=== PATIENT | female | born 1985 | race Caucasian/White ===

== ENCOUNTER 2023-03-30 14:58 | Inpatient (IN) ==
--- NOTE | 2023-03-30 15:37 | XRay Report ---
XR chest 1V not portable HISTORY: Respiratory illness, no prior imaging COMPARISON: Chest 12/10/2022. FINDINGS: No pneumothorax. No pleural effusions. The lungs are clear. The heart is normal in size. No evidence for pulmonary edema. Postoperative changes again noted within the left scapula. There is a left subclavian Port-A-Cath which terminates in the proximal SVC. IMPRESSION: No acute process. ACT 112: Negative or not required by law. Electronically signed by: Ernesto Giles M.D. 03/30/2023 3:36 PM
[2023-03-30 16:09] LABS: Basophils # (auto) 0.06 K/uL (0.00-0.20); Basophils % (auto) 0.8 %; Eosinophils # (auto) 0.32 K/uL (0.00-0.50); Eosinophils % (auto) 4.1 %; Hematocrit (blood only) 39.1 % (37.0-47.0); Immature Granulocytes # (auto) 0.02 K/uL (0.01-0.20); Immature Granulocytes % (auto) 0.3 %; Lymphocytes # (auto) 2.22 K/uL (1.20-3.40); Lymphocytes % (auto) 28.6 %; Mean Corpuscular Hemoglobin 31.3 pg (25.0-34.0); Mean Corpuscular Hgb Conc 33.2 g/dL (32.0-36.0); Mean Corpuscular Volume 94.2 fL (80.0-100.0); Mean Platelet Volume 9.1 fL (9.4-12.4); Monocytes % (auto) 6.4 %; Neutrophils # (auto) 4.65 K/uL (1.40-6.50); Neutrophils % (auto) 59.8 %; Platelet Count 327 K/uL (130-400); RDW Standard Deviation 44.9 fL (36.4-46.3); Red Blood Count 4.15 M/uL (4.20-5.40); White Blood Count 7.77 K/ul (4.8-10.8)
[2023-03-30 16:28] LABS: Alanine Aminotransferase 57 U/L (7-52); Albumin Globulin Ratio 1.4 (0.9-2); Albumin Level 3.8 gm/dl (3.4-5.0); Alkaline Phosphatase 64 U/L (34-104); Anion Gap 7 (3-11); Aspartate Aminotransferase 76 U/L (13-39); BUN Creatinine Ratio 9.9 (10-20); Bilirubin,Total 0.3 mg/dl (0.2-1.0); Blood Urea Nitrogen 12 mg/dl (6-23); Carbon Dioxide 22 mmol/L (21-32); Chloride 107 mmol/L (98-107); Est GFR (African American) 66.7 ml/min; Est GFR (Non-African American) 57.5 ml/min; Globulin 2.8 gm/dl (2.5-4.0); Glucose 92 mg/dl (70-99(Fasting)); Potassium 3.7 mmol/L (3.5-5.1); Sodium 136 mmol/L (136-145); Total Protein 6.6 gm/dl (6.0-8.3)
[2023-03-30 17:01] LABS: Appearance Urine Clear (Clear); Bacteria Urine Automated Negative (Negative); Bilirubin Urine Negative (Negative); Blood Urine Negative (Negative); Color Urine Yellow; Epithelial Cell Urine Auto 20-30 /lpf (0-5); Glucose Urine UA Negative (Negative); Ketones Urine Negative (Negative); Leukocyte Esterase Urine 2+ (Negative); Nitrite Urine Negative (Negative); Protein Urine Negative (Negative); RBC Urine Automated 0-4 /hpf (0-4); Specific Gravity Urine 1.005 (1.000-1.030); Urobilinogen Urine Negative (Negative)
[2023-03-30] MEDS ORDERED: MoRPHine SULFATE 10 MG/ML CARP/VIAL IV STA (18:04)
[2023-03-30] MEDS ORDERED: ONDANSETRON INJ 2 MG/ML 2 ML VIAL IV STA (18:04)
[2023-03-30] MEDS ORDERED: SODIUM CHLORIDE 0.9% 1,000 ML IV ONE (18:04)
--- NOTE | 2023-03-30 18:16 | Emergency Department Note ---
Impression & Plan Tachycardia, Body aches, Flu-like symptoms, COVID-19, POTS (postural orthostatic tachycardia syndrome), Hypomagnesemia ED Provider Note NAME: TANMAY IYER AGE: 38 SEX: F : 1985 ARRIVES VIA: Walk-In INFORMANT: [Patient] ED PROVIDER(S): [Dinesh Pearce MD] CHIEF COMPLAINT: Shortness of breath, COVID-positive HISTORY OF PRESENT ILLNESS: The patient is a 38-year-old female with a history of chronic pain and POTS. She has a port in place for IV hydration that she administers at home. She has history of a low magnesium. She has not felt great for a couple of days. She s tates that she had a low-grade fever, her heart rate has been quick, she has been weak and she has had some body aching. She has a dry cough and a headache. The patient has felt so weak that she has crumpled to the ground today 4 times, no injury. The patient denies any vomiting but admits to nausea. She has diarrhea but this is a chronic issue. The patient took 3 COVID test at home, they were all positive. She was prescribed Lagevrio by her doctor's office today for the diagnosis of COVID. The patient states that she cannot function at home with her symptoms. PMHx/PSHx: See Below SOCIAL HISTORY: See Below. PHYSICAL EXAM: GENERAL: Patient is in no moderate distress, tearful, very anxious. HEENT: No acute trauma, normocephalic atraumatic, mucous membranes moist, no nasal congestion. NECK: No stridor, no adenopathy, no meningismus, trachea is midline. LUNGS: Clear to auscultation bilaterally, no wheeze, no rhonchi, breath sounds equal. HEART: Tachycardic, regular rhythm, no murmurs. ABDOMEN: Soft, nontender, bowel sounds positive, no peritonitis. EXTREMITIES: No cyanosis or edema, full range of motion of all the joints without pain or difficulty, no signs for acute trauma. NEUROLOGIC: Oriented x 3, no acute motor or sensory deficits, no focal weakness. SKIN: No rash, no jaundice, no diaphoresis. DIFFERENTIAL DIAGNOSIS: COVID-19, dehydration, electrolyte imbalance, pneumonia, bronchitis, among others EMERGENCY DEPARTMENT COURSE/PROCEDURES: Prior/Outside records reviewed: Previous family practice note. ECG per my interpretation: Indication was weakness and tachycardia. The ECG shows a sinus tachycardia with a rate of 122. There is no ST elevation, no PVCs. The QTc is 436. Continuous Cardiac Monitoring per my interpretation: An order was placed for continuous cardiac monitoring. The monitor shows a rate of 128 with sinus tachycardia. MEDICAL DECISION MAKING: There is no leukocytosis or concerning anemia. There is a normal platelet co unt. Creatinine is slightly elevated at 1.21, this is consistent with her baseline testing. Magnesium is low 1.4. There were some subtle liver enzyme elevations although, the bilirubin was normal. ECG showed a sinus tachycardia, no acute ischemia. Cardiac enzyme testing x1 was not consistent with acute cardiac injury. Urinalysis did not show findings of infection but more so contamination. COVID test returned positive. Chest film per my review did not show mediastinal widening, pneumonia or pneumothorax. On exam, the patient was tachycardic, she was tearful and seemed uncomfortable. Patient received IV saline, IV Zofran and IV morphine. She was given IV magnesium. Patient has ongoing chronic issues and now has COVID-19. She is unable to function at home. She is weak, she is falling. She is persistently tachycardic with a low magnesium. I did speak with the patient about a hospital stay, I spoke with case management, the on-call hospitalist was consulted. DISPOSITION: Patient's presentation and findings warrant a hospital stay. Past Med/Surg History Medical History Acquired autoimmune hypothyroidism Anxiety and depression Asthma Allergy induced- well controlled - no inhalers needed recently Cardiac murmur FOLLOWED BY DR. 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 JOINT DISLOCATIONS Per 06/06/21 PCP note- follows with rheum ([facility] in [place]) Endometriosis USES IUD AND NUVA RING - DOES HAVE LAPAROSCOPIES OCCASIONALLY Eosinophilic esophagitis Gastroparesis GERD (gastroesophageal reflux disease) Hiatal hernia History of colitis 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 MCCLAIN Pyloric stenosis Surgical History H/O knee surgery History of anesthesia reaction History of ankle surgery History of colonoscopy History of esophagogastroduodenoscopy (EGD) History of foot surgery History of hip surgery History of laparoscopy History of mandibular surgery History of removal of retained hardware Hx of shoulder surgery Port-A-Cath in place Family History Family/Other Family history of esophageal cancer Father Melanoma Lewy body dementia Mother Diabetes Hypertension Other Cancer No family history of adverse response to anesthesia Denies family history of Ovarian cancer Prostate cancer Myocardial infarction Breast cancer Colorectal cancer Social History Smoking Status: Never smoker Second Hand Exposure: No; Do You Dip or Chew Tobacco: No; Hx Alcohol Use: No Hx Substance Use: No Preferred Language: Spanish Communication Ability: Effective Visual Impairment: No Limitations Hearing Ability: Normal Sound Person Required: No Beliefs That Will Affect Care: None marital status: Single Current Living Situation: Alone current occupational status: employed current occupation: [employer] Feels Safe at Home: Yes Childhood Exposure to Second-Hand Smoke: No Diet: lactose free and other Diet Comment: HAS A LOT OF FOOD COWS, MILK, PROTEIN ALLERGY. Dental Care, Regularly: Yes Physical Activity Frequency: Does not Exercise Seatbelt Use: always Sunscreen Use: Yes Assistive Devices: Cane and Glasses Allergies Allergies Allergy/AdvReac Type Severity Reaction Status Date / Time peanut Allergy Severe Anaphylaxis Verified 03/30/23 19:48 adhesive Allergy Intermediate SKIN Verified 03/30/23 19:48 IRRITATION WITH TAPES gabapentin Allergy Intermediate TONGUE Verified 03/30/23 19:48 SWELLING, RASH chlorhexidine Allergy Mild RASH WITH Verified 03/30/23 19:48 SCENTED ONLY latex Allergy Mild LIPS NUMB Verified 03/30/23 19:48 BLOWING UP A BALLOON nickel Allergy Mild Rash Verified 03/30/23 19:48 casein Allergy Unknown Verified 03/30/23 19:48 COVID-19 vaccine, mRNA, Allergy HIVES, Verified 03/30/23 19:48 [id number], L BIVALENT PFIZER VACCINE iodine Allergy blisters Verified 03/30/23 19:48 on contact area shellfish derived Allergy mouth Verified 03/30/23 19:48 blisters; "bad" gi upset apple AdvReac Mild Gastrointestinal Verified 03/30/23 19:48 Upset burton AdvReac Mild Gastrointestinal Verified 03/30/23 19:48 Upset corn AdvReac Mild Gastrointestinal Verified 03/30/23 19:48 Upset melon AdvReac Mild Gastrointestinal Verified 03/30/23 19:48 Upset soy AdvReac Mild Gastrointestinal Verified 03/30/23 19:48 Upset tomato AdvReac Mild Gastrointestinal Verified 03/30/23 19:48 Upset tree nut AdvReac Mild Gastrointestinal Verified 03/30/23 19:48 Upset wheat AdvReac Mild Gastrointestinal Verified 03/30/23 19:48 Upset DISOLVEABE SUTURES Allergy Intermediate BODY WILL Uncoded 03/30/23 19:48 REJECT SUTURES SKIN PREP Allergy Intermediate Hives Uncoded 03/30/23 19:48 Home Meds Home Medications Medication Instructions Recorded Confirmed midodrine 5 mg tablet 5 mg PO TID PRN tachycardia 12/12/20 03/30/23 etonogestrel 0.12 mg-ethinyl 1 vag ring vaginal MONTHLY 02/04/21 03/30/23 estradiol 0.015 mg/24 hr vaginal ring (EluRyng) loratadine 10 mg tablet (Claritin) 10 mg PO BID 02/06/21 03/30/23 ascorbic acid (vitamin C) 1,000 mg 1 g PO BID 01/29/22 03/30/23 tablet amoxicillin 500 mg tablet 2,000 mg PO ONCE PRN Other 02/26/22 03/30/23 montelukast 10 mg tablet 10 mg PO QPM 03/05/22 03/30/23 (Singulair) IV admin extension set 60" 06/12/22 03/30/23 Low Dose Naltrexone 4.5 mg PO HS 08/20/22 03/30/23 ketorolac 30 mg/mL injection 30 mg IM UD PRN Migraine Headache 08/20/22 03/30/23 syringe liothyronine 5 mcg tablet (Cytomel) 5 mcg PO Q2D 08/20/22 03/30/23 rimegepant 75 mg disintegrating 75 mg PO UD 08/20/22 03/30/23 tablet (Nurtec ODT) ergocalciferol (vitamin D2) 1,250 1,250 mcg PO WK 09/09/22 03/30/23 mcg (50,000 unit) capsule levonorgestrel 17.5 mcg/24 hrs 1 device intrauterine CONT 11/15/22 03/30/23 (5yrs) 19.5mg intrauterine device (Kyleena) cyanocobalamin (vitamin B-12) 1,000 mcg IM .EVERY 14 DAYS 12/10/22 03/30/23 1,000 mcg/mL injection solution pyridostigmine bromide 60 mg tablet 60 mg PO BID muscle spasticity 12/10/22 03/30/23 pyridostigmine bromide 60 mg tablet 60 mg PO HS 12/10/22 03/30/23 triamcinolone acetonide 0.1 % 1 applic topical BID PRN hives 12/10/22 03/30/23 topical ointment lactated Ringers 1 ea IV .COMPLEX 01/09/23 03/30/23 magnesium oxide 400 mg PO BID 01/09/23 03/30/23 hydroxyzine HCl 25 mg tablet 25 mg PO TID PRN Allergy 03/20/23 03/30/23 Magnesium Sulfate In Lac Ring 2 g IV DIRECTED 03/30/23 03/30/23 alprazolam 1 mg disintegrating 1 mg PO AMHS 03/30/23 03/30/23 tablet alprazolam 1 mg disintegrating 1 mg PO DAILY PRN Anxiety 03/30/23 03/30/23 tablet esomeprazole magnesium 40 mg 40 mg PO BID 03/30/23 03/30/23 capsule,delayed release melatonin 10 mg tablet 10 mg PO HS 03/30/23 03/30/23 tirzepatide 5 mg/0.5 mL 5 mg subcut .WEEKLY/HOLD 03/30/23 03/30/23 subcutaneous pen injector (Farida) Previous Rx's Medication Instructions Recorded ondansetron 8 mg disintegrating 8 mg PO Q8H PRN nausea and 02/14/22 tablet vomiting #90 tabs metformin 500 mg tablet,extended 1,000 mg PO BID #360 tabs 04/15/22 release 24 hr epinephrine 0.3 mg/0.3 mL 0.3 mg (0.3 mL) IM Q4H PRN 07/15/22 injection, auto-injector (EpiPen anaphylaxis #2 ea 2-Marlo) olopatadine 0.6 % nasal spray 2 spray intranasal BID #30.5 grams 07/15/22 (Patanase) IV admin extension set #1 ea 07/17/22 celecoxib 200 mg capsule 200 mg PO DAILY #90 caps 11/06/22 omalizumab 150 mg/mL subcutaneous 300 mg (2 mL) subcut .COMPLEX #4 mL 12/09/22 syringe (Xolair) tizanidine 2 mg tablet 2 mg PO HS PRN muscle spasticity 12/12/22 #90 tabs naloxone 4 mg/actuation nasal 4 mg intranasal Q2M PRN opioid 01/03/23 spray (Narcan) overdose #2 ea spironolactone 50 mg tablet 50 mg PO DAILY #90 tabs 01/07/23 hydrocodone bitartrate 30 mg 30 mg PO DAILY #30 tabs 02/07/23 tablet,crush resist,extended rel. 24hr levothyroxine 125 mcg capsule 125 mcg PO DAILY #90 caps 02/13/23 (Tirosint) lemborexant 5 mg tablet 5 mg PO HS #30 tabs 03/07/23 oxycodone 5 mg tablet 5 mg PO DAILY PRN Breakthrough 03/07/23 Pain #5 tabs colesevelam 625 mg tablet (WelChol) 1,250 mg PO BID #120 tabs 03/20/23 cyclobenzaprine 10 mg tablet 20 mg PO QAM #180 tabs 03/21/23 molnupiravir 200 mg capsule (EUA) 800 mg PO Q12H 5 days #40 caps 03/30/23 Results & Data (ED) Vital Signs Vital Signs - 24 hr 03/30/23 15:09 03/30/23 18:32 03/30/23 18:42 Temperature 36.2 C L Temperature Source Temporal Artery Scan Pulse Rate 128 H 113 H Respiratory Rate 20 Blood Pressure 132/85 Blood Pressure Mean 100 Pulse Oximetry 96 Oxygen Delivery Method Room Air Room Air Sepsis Recent Fever Within 48 Hours Yes Sepsis New/Unexplained Change in Mental Status N/A Sepsis Action Taken by Nursing No Action Required Home Medications Current Medication List: was personally reviewed by me Laboratory Data Attestation: I reviewed the patient's lab results. 03/30/23 15:36 03/30/23 15:36 Lab Results 03/30/23 03/30/23 03/30/23 Range/Units 15:36 15:36 15:36 WBC 7.77 (4.8-10.8) K/ul RBC 4.15 L (4.20-5.40) M/uL Hgb 13.0 (12.0-16.0) g/dl Hct 39.1 (37.0-47.0) % MCV 94.2 (80.0-100.0) fL MCH 31.3 (25.0-34.0) pg MCHC 33.2 (32.0-36.0) g/dL RDW Std Deviation 44.9 (36.4-46.3) fL RDW Coeff of Reynold 13.0 (11.5-14.5) % Plt Count 327 (130-400) K/uL MPV 9.1 L (9.4-12.4) fL Immature Gran % (Auto) 0.3 % Neut % (Auto) 59.8 % Lymph % (Auto) 28.6 % [place] % (Auto) 6.4 % Eos % (Auto) 4.1 % Baso % (Auto) 0.8 % Neut # (Auto) 4.65 (1.40-6.50) K/uL Lymph # (Auto) 2.22 (1.20-3.40) K/uL [place] # (Auto) 0.50 (0.11-0.59) K/uL Eos # (Auto) 0.32 (0.00-0.50) K/uL Baso # (Auto) 0.06 (0.00-0.20) K/uL Immature Gran # (Auto) 0.02 (0.01-0.20) K/uL Sodium 136 (136-145) mmol/L Potassium 3.7 (3.5-5.1) mmol/L Chloride 107 (98-107) mmol/L Carbon Dioxide 22 (21-32) mmol/L Anion Gap 7 (3-11) BUN 12 (6-23) mg/dl Creatinine 1.21 H (0.6-1.2) mg/dl Est Cr Clr Drug Dosing Not Reportable Est GFR ( Amer) 66.7 ml/min Est GFR (Non-Af Amer) 57.5 ml/min BUN/Creatinine Ratio 9.9 L (10-20) Glucose 92 (70-99(Fasting)) mg/dl Calcium 9.0 (8.6-10.3) mg/dl Magnesium 1.4 L (1.7-2.4) mg/dl Total Bilirubin 0.3 (0.2-1.0) mg/dl AST 76 H (13-39) U/L ALT 57 H (7-52) U/L Alkaline Phosphatase 64 (34-104) U/L Troponin I High Sens 2.3 (0-14) pg/ml Total Protein 6.6 (6.0-8.3) gm/dl Albumin 3.8 (3.4-5.0) gm/dl Globulin 2.8 (2.5-4.0) gm/dl Albumin/Globulin Ratio 1.4 (0.9-2) Urine Color Urine Appearance (Clear) Urine pH (4.5-7.5) Ur Specific [place] (1.000-1.030) Urine Protein (Negative) Urine Glucose (UA) (Negative) Urine Ketones (Negative) Urine Blood (Negative) Urine Nitrite (Negative) Urine Bilirubin (Negative) Urine Urobilinogen (Negative) Ur Leukocyte Esterase (Negative) Urine WBC (Auto) (0-5) /hpf Urine RBC (Auto) (0-4) /hpf U Hyaline Cast (Auto) (0-5) /lpf U Epithel Cells (Auto) (0-5) /lpf Urine Bacteria (Auto) (Negative) SARS-CoV-2 (PCR) (Negative) Influenza Type A (PCR) (Neg) Influenza Type B (PCR) (Neg) RSV (RT-PCR) (Neg) 03/30/23 03/30/23 Range/Units 16:28 18:30 WBC (4.8-10.8) K/ul RBC (4.20-5.40) M/uL Hgb (12.0-16.0) g/dl Hct (37.0-47.0) % MCV (80.0-100.0) fL MCH (25.0-34.0) pg MCHC (32.0-36.0) g/dL RDW Std Deviation (36.4-46.3) fL RDW Coeff of Reynold (11.5-14.5) % Plt Count (130-400) K/uL MPV (9.4-12.4) fL Immature Gran % (Auto) % Neut % (Auto) % Lymph % (Auto) % [place] % (Auto) % Eos % (Auto) % Baso % (Auto) % Neut # (Auto) (1.40-6.50) K/uL Lymph # (Auto) (1.20-3.40) K/uL [place] # (Auto) (0.11-0.59) K/uL Eos # (Auto) (0.00-0.50) K/uL Baso # (Auto) (0.00-0.20) K/uL Immature Gran # (Auto) (0.01-0.20) K/uL Sodium (136-145) mmol/L Potassium (3.5-5.1) mmol/L Chloride (98-107) mmol/L Carbon Dioxide (21-32) mmol/L Anion Gap (3-11) BUN (6-23) mg/dl Creatinine (0.6-1.2) mg/dl Est Cr Clr Drug Dosing Est GFR ( Amer) ml/min Est GFR (Non-Af Amer) ml/min BUN/Creatinine Ratio (10-20) Glucose (70-99(Fasting)) mg/dl Calcium (8.6-10.3) mg/dl Magnesium (1.7-2.4) mg/dl Total Bilirubin (0.2-1.0) mg/dl AST (13-39) U/L ALT (7-52) U/L Alkaline Phosphatase (34-104) U/L Troponin I High Sens (0-14) pg/ml Total Protein (6.0-8.3) gm/dl Albumin (3.4-5.0) gm/dl Globulin (2.5-4.0) gm/dl Albumin/Globulin Ratio (0.9-2) Urine Color Yellow Urine Appearance Clear (Clear) Urine pH 6.0 (4.5-7.5) Ur Specific [place] 1.005 (1.000-1.030) Urine Protein Negative (Negative) Urine Glucose (UA) Negative (Negative) Urine Ketones Negative (Negative) Urine Blood Negative (Negative) Urine Nitrite Negative (Negative) Urine Bilirubin Negative (Negative) Urine Urobilinogen Negative (Negative) Ur Leukocyte Esterase 2+ H (Negative) Urine WBC (Auto) 5-10 H (0-5) /hpf Urine RBC (Auto) 0-4 (0-4) /hpf U Hyaline Cast (Auto) 1-5 (0-5) /lpf U Epithel Cells (Auto) 20-30 H (0-5) /lpf Urine Bacteria (Auto) Negative (Negative) SARS-CoV-2 (PCR) POSITIVE A* (Negative) Influenza Type A (PCR) Negative (Neg) Influenza Type B (PCR) Negative (Neg) RSV (RT-PCR) Negative (Neg) Administered Medications Discontinued Medications Sodium Chloride (Nss 1000ml) 1,000 mls @ 999 mls/hr IV .Q1H1M ONE Stop: 03/30/23 19:04 Last Infusion: 03/30/23 20:38 Dose: 0 mls/hr Documented By: Admin: 03/30/23 18:39 Dose: 999 mls/hr Documented By: ELIZABETH Magnesium Sulfate/Dextrose (Magnesium Sulfate / D5w) 1 gm in 100 mls @ 100 mls/hr IV Q1H BUZZ Stop: 03/30/23 21:28 Last Admin: 03/30/23 21:54 Dose: 100 mls/hr Documented By: Infusion: 03/30/23 21:53 Dose: 0 mls/hr Documented By: Admin: 03/30/23 20:49 Dose: 100 mls/hr Documented By: MIGDALIA Morphine Sulfate (Morphine Sulfate 10 Mg/Ml Carp/Vial) 6 mg IV NOW STA Stop: 03/30/23 18:05 Last Admin: 03/30/23 18:39 Dose: 6 mg Documented By: ELIZABETH Ondansetron HCl (Ondansetron Inj 2 Mg/Ml 2 Ml Vial) 4 mg IV NOW STA Stop: 03/30/23 18:05 Last Admin: 03/30/23 18:39 Dose: 4 mg Documented By: ELIZABETH Imaging Data Radiologist's Impression: Chest X-Ray 03/30/23 15:15 XR chest 1V not portable HISTORY: Respiratory illness, no prior imaging COMPARISON: Chest 12/10/2022. FINDINGS: No pneumothorax. No pleural effusions. The lungs are clear. The heart is normal in size. No evidence for pulmonary edema. Postoperative changes again noted within the left scapula. There is a left subclavian Port-A-Cath which terminates in the proximal SVC. IMPRESSION: No acute process. ACT 112: Negative or not required by law. Electronically signed by: Ernesto Giles M.D. 03/30/2023 3:[address] 03/30/23 18:48 Exam(s): CT C SPINE EXAM: CT Cervical Spine Without Intravenous Contrast CLINICAL HISTORY: Reason for exam: fall, neck pain, OI. TECHNIQUE: Axial computed tomography images of the cervical spine without intravenous contrast. CTDI is 21.03 mGy and DLP is 444.53 mGy-cm. Automated exposure control was utilized for the study. A dose lowering technique was utilized adhering to the principles of ALARA. COMPARISON: No relevant prior studies available. FINDINGS: Vertebrae: Straightening of the cervical spine. No acute fracture or subluxation. Discs/spinal canal/neural foramina: No acute findings. No spinal canal stenosis. Soft tissues: Unremarkable. IMPRESSION: Straightening of the cervical spine. No acute fracture or subluxation. Electronically signed by: Chantel Hernandez M.D. 03/30/23 21:21 PM Discharge Plan Visit Data Chief Complaint: Shortness of Breath/Dyspnea Stated Complaint: COVID+, DIFFICULTY BREATHING, CHEST PAIN, WEAKNESS ED Provider: Dinesh Pearce Discharge Problem: Tachycardia, Body aches, Flu-like symptoms, COVID-19, POTS (postural orthostatic tachycardia syndrome), Hypomagnesemia Patient Disposition: Admitted As Inpatient Condition: Fair Forms Stand Alone Forms: [facility] Prescriptions Prescriptions: No Action metformin 500 mg tablet extended release 24 hr 1,000 mg PO BID Qty: 360 3RF (DME) IV admin extension set 60 " infusion set See Rx Instructions .Route Rx Instructions: USE ONCE EVERY OTHER DAY DIRECTED WITH SALINE INFUSION. (DME) IV admin extension set Infusion Set See Rx Instructions .Route Qty: 1 8RF Rx Instructions: IV admin extension set 60". Use once every other day as directed with saline infusion Xolair 150 mg/mL syringe 300 mg subcut .COMPLEX Qty: 4 11RF Rx Instructions: INJECT 300 mg subcutaneously EVERY 2 WEEKS. PT TO SELF ADMINISTER AT HOME APPROVED GOOD 10/07/22-10/08/23 PA# [id number] tizanidine 2 mg tablet 2 mg PO HS PRN (Reason: muscle spasticity) Qty: 90 3RF naloxone [Narcan] 4 mg/actuation spray,non-aerosol 4 mg intranasal Q2M PRN (Reason: opioid overdose) Qty: 2 0RF Rx Instructions: spray 1 dose into ONE nostril; alternate nostrils w each dose until help arrives lemborexant 5 mg tablet 5 mg PO HS Qty: 30 0RF oxycodone 5 mg tablet 5 mg PO DAILY PRN (Reason: Breakthrough Pain) Qty: 5 0RF midodrine 5 mg tablet 5 mg PO TID PRN (Reason: tachycardia) Rx Instructions: do not give last dose of day after 6PM or within 4 hrs of bedtime ascorbic acid (vitamin C) 1,000 mg tablet 1 g PO BID ondansetron 8 mg tablet,disintegrating 8 mg PO Q8H PRN (Reason: nausea and vomiting) Qty: 90 3RF Kyleena 17.5 mcg/24 hrs (5 yrs) 19.5 mg intrauterine device 1 device intrauterine CONT Rx Instructions: PT STATES THAT SHE HAS BOTH KYLEENA AND NUVARING- PLEASE DO NOT REMOVE levothyroxine [Tirosint] 125 mcg capsule 125 mcg PO DAILY Qty: 90 2RF olopatadine [Patanase] 0.6 % spray,non-aerosol 2 spray intranasal BID Qty: 30.5 11RF Rx Instructions: administer into each nostril epinephrine [EpiPen 2-Marlo] 0.3 mg/0.3 mL auto-injector 0.3 mg IM Q4H PRN (Reason: anaphylaxis) Qty: 2 3RF celecoxib 200 mg capsule 200 mg PO DAILY Qty: 90 3RF molnupiravir 200 mg capsule 800 mg PO Q12H 5 Days Qty: 40 0RF loratadine [Claritin] 10 mg tablet 10 mg PO BID cyclobenzaprine 10 mg tablet 20 mg PO QAM Qty: 180 3RF spironolactone 50 mg tablet 50 mg PO DAILY Qty: 90 0RF hydrocodone bitartrate 30 mg tablet,oral only,ext.rel.24 hr 30 mg PO DAILY Qty: 30 0RF colesevelam [WelChol] 625 mg tablet 1,250 mg PO BID Qty: 120 5RF magnesium oxide 400 mg magnesium tablet 400 mg PO BID etonogestrel-ethinyl estradiol [EluRyng] 0.12-0.015 mg/24 hr ring 1 vag ring VAGINAL MONTHLY Rx Instructions: Friday OF liothyronine [Cytomel] 5 mcg tablet 5 mcg PO Q2D ketorolac 30 mg/mL syringe 30 mg IM UD PRN (Reason: Migraine Headache) Rx Instructions: once weekly as needed Nurtec ODT 75 mg tablet,disintegrating 75 mg PO UD Rx Instructions: 75 mg PO Take one tablet once a day as needed for migraine, max one dose per 24 hours, limit dosing to 2-3 times per week; Low Dose Naltrexone 4.5 mg PO HS hydroxyzine HCl 25 mg tablet 25 mg PO TID PRN (Reason: Allergy) Patient Comments: takes 2 tablets every night Rx Instructions: PO; 1-3 tablets qhs as needed for hives or allergic reactions; ergocalciferol (vitamin D2) 1,250 mcg (50,000 unit) capsule 1,250 mcg PO WK Rx Instructions: sundays alprazolam 1 mg tablet,disintegrating 1 mg PO AMHS alprazolam 1 mg tablet,disintegrating 1 mg PO DAILY PRN (Reason: Anxiety) melatonin 10 mg Tablet 10 mg PO HS Magnesium Sulfate In Lac Ring 2 g IV DIRECTED Rx Instructions: Weekly, over 1 hour esomeprazole magnesium 40 mg capsule,delayed release(DR/EC) 40 mg PO BID Rx Instructions: TAKE 1 CAPSULE BY MOUTH TWICE A DAY Mounjaro 5 mg/0.5 mL pen injector 5 mg subcut .WEEKLY/HOLD Rx Instructions: HOLD amoxicillin 500 mg tablet 2,000 mg PO ONCE PRN (Reason: Other) Rx Instructions: Take 4 tablets 1 hour before dental procedure montelukast [Singulair] 10 mg Tablet 10 mg PO QPM triamcinolone acetonide 0.1 % ointment 1 applic topical BID PRN (Reason: hives) pyridostigmine bromide 60 mg tablet 60 mg PO HS pyridostigmine bromide 60 mg tablet 60 mg PO BID Rx Instructions: AM& HS cyanocobalamin (vitamin B-12) 1,000 mcg/mL solution 1,000 mcg IM .EVERY 14 DAYS Rx Instructions: sundays lactated Ringers Parenteral Solution 1 ea IV .COMPLEX Rx Instructions: 1 ea intravenously QOD ; 1 liter Referrals Referrals: Vero Bhandari MD [Primary Care Provider] -
--- NOTE | 2023-03-30 18:44 | History & Physical Report ---
Date of Service March 30, 2023 Assessment & Plan (1) COVID: Plan: Weakness suspect 2/2 acute COVID With multiple comorbidities and weakness precluding ability to form IADLs Heart rate 130 in ER. EKG ordered. Regular by palpation Baseline creatinine fluctuating around 1.11.4 Admitting creatinine 1.2 Mild to new transaminitis 76/57. Suspect viral, trended CXR: No acute process No hypoxia, steroids not indicated. May continue own molnupiravir Troponin ordered - PT/OT pending - No neck tenderness/head injury. Endorses weak and slumped to the ground but no syncope Tachycardia Suspect reactive, improving after fluids. 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 May use home med if not available on formulary Continue Cytomel 5 mcg daily Chronic diffuse pain syndrome Multimodal pain control Continue home hydrocodone, celecoxib, cyclobenzaprine, tizanidine. Caution hypotension in the setting of POTS. - Muscle spasms worsened with hypomagnesemia and hypokalemia. Optimize to goal 2.0 and 4.0 Patient did fall and had a head injury with a sore occiput. Given increased risk due to osteogenesis imperfecta and Gisele-Danlos CTC-spine ordered. Severe Gastroparesis - W/ L port as noted. - No acute change in this - Diet as tolerated, +boost - Continue port supplementation as needed POTS Follows with cardiology IV FM while inpatient Continue midodrine Minimize tizanidine where able Chronic lower extremity edema Spironolactone held Torsemide held Lymphedema precautions, elevate legs 3 times daily DVT prophylaxis: SCDs Diet: Heart healthy Disposition: Medical telemetry for tachycardia and history of hypomagnesemia CODE STATUS: Full code (2) Weakness: (3) PCOS (polycystic ovarian syndrome): (4) Acquired autoimmune hypothyroidism: (5) Gastroparesis: (6) Cervical myelopathy: (7) Gisele-Danlos syndrome: (8) GERD (gastroesophageal reflux disease): (9) Polycystic ovarian disease: (10) Chronic idiopathic urticaria: (11) 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 She normally has a port in place for IV hydration for which she receives fluids at home. She reports that she has been so weak that she fell to the ground 4 times today without injuries. She has chronic diarrhea which has continued. Home COVID test was positive, she was diagnosed and given leg gave Reo at her PCPs office. Due to her severe weakness she is unable to function at home and presents for inpatient care. Catilin endorses she went to [facility]. AFter than progressive sore throat, nausea, faituge, dry cough, vomiting. Thought it might be allergies then continued to get worse. Took 3 home COVID tests which were rapidly positive. Called her PCP and was prescribed an antiviral medication. Was trying to do OK at home, but had felt so washed out she cannot walk and fatigues easily. Tripped on the step to her bathroom and hit her on the door jam. 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 Did bring antiviral since this is not available as inpatient. Cannot take paxlovid, has been prescribed molnupiravir instead Has a port, takes every other day 1L LR and 1x per week has ringers + 2g magnesium piggyback. Medical History: Reviewed Medications: Reviewed Surgical History: Reviewed Family history: Reviewed Allergies: Reviewed Social History: Reviewed Code Status: Full Allergies Allergy/AdvReac Type Severity Reaction Status Date / Time peanut Allergy Severe Anaphylaxis Verified 03/30/23 19:48 adhesive Allergy Intermediate SKIN Verified 03/30/23 19:48 IRRITATION WITH TAPES gabapentin Allergy Intermediate TONGUE Verified 03/30/23 19:48 SWELLING, RASH chlorhexidine Allergy Mild RASH WITH Verified 03/30/23 19:48 SCENTED ONLY latex Allergy Mild LIPS NUMB Verified 03/30/23 19:48 BLOWING UP A BALLOON nickel Allergy Mild Rash Verified 03/30/23 19:48 casein Allergy Unknown Verified 03/30/23 19:48 COVID-19 vaccine, mRNA, Allergy HIVES, Verified 03/30/23 19:48 [id number], L BIVALENT PFIZER VACCINE iodine Allergy blisters Verified 03/30/23 19:48 on contact area shellfish derived Allergy mouth Verified 03/30/23 19:48 blisters; "bad" gi upset apple AdvReac Mild Gastrointestinal Verified 03/30/23 19:48 Upset burton AdvReac Mild Gastrointestinal Verified 03/30/23 19:48 Upset corn AdvReac Mild Gastrointestinal Verified 03/30/23 19:48 Upset melon AdvReac Mild Gastrointestinal Verified 03/30/23 19:48 Upset soy AdvReac Mild Gastrointestinal Verified 03/30/23 19:48 Upset tomato AdvReac Mild Gastrointestinal Verified 03/30/23 19:48 Upset tree nut AdvReac Mild Gastrointestinal Verified 03/30/23 19:48 Upset wheat AdvReac Mild Gastrointestinal Verified 03/30/23 19:48 Upset DISOLVEABE SUTURES Allergy Intermediate BODY WILL Uncoded 03/30/23 19:48 REJECT SUTURES SKIN PREP Allergy Intermediate Hives Uncoded 03/30/23 19:48 Home Medications Medication Instructions Recorded Confirmed Type midodrine 5 mg tablet 5 mg PO TID PRN tachycardia 12/12/20 03/30/23 History etonogestrel 0.12 mg-ethinyl 1 vag ring vaginal MONTHLY 02/04/21 03/30/23 History estradiol 0.015 mg/24 hr vaginal ring (EluRyng) loratadine 10 mg tablet (Claritin) 10 mg PO BID 02/06/21 03/30/23 History ascorbic acid (vitamin C) 1,000 mg 1 g PO BID 01/29/22 03/30/23 History tablet ondansetron 8 mg disintegrating 8 mg PO Q8H PRN nausea and 02/14/22 03/30/23 Rx tablet vomiting #90 tabs amoxicillin 500 mg tablet 2,000 mg PO ONCE PRN Other 02/26/22 03/30/23 History montelukast 10 mg tablet 10 mg PO QPM 03/05/22 03/30/23 History (Singulair) metformin 500 mg tablet,extended 1,000 mg PO BID #360 tabs 04/15/22 03/30/23 Rx release 24 hr IV admin extension set 60" 06/12/22 03/30/23 History epinephrine 0.3 mg/0.3 mL 0.3 mg (0.3 mL) IM Q4H PRN 07/15/22 03/30/23 Rx injection, auto-injector (EpiPen anaphylaxis #2 ea 2-Marlo) olopatadine 0.6 % nasal spray 2 spray intranasal BID #30.5 grams 07/15/22 03/30/23 Rx (Patanase) IV admin extension set #1 ea 07/17/22 03/30/23 Rx Low Dose Naltrexone 4.5 mg PO HS 08/20/22 03/30/23 History ketorolac 30 mg/mL injection 30 mg IM UD PRN Migraine Headache 08/20/22 03/30/23 History syringe liothyronine 5 mcg tablet (Cytomel) 5 mcg PO Q2D 08/20/22 03/30/23 History rimegepant 75 mg disintegrating 75 mg PO UD 08/20/22 03/30/23 History tablet (Nurtec ODT) ergocalciferol (vitamin D2) 1,250 1,250 mcg PO WK 09/09/22 03/30/23 History mcg (50,000 unit) capsule celecoxib 200 mg capsule 200 mg PO DAILY #90 caps 11/06/22 03/30/23 Rx levonorgestrel 17.5 mcg/24 hrs 1 device intrauterine CONT 11/15/22 03/30/23 History (5yrs) 19.5mg intrauterine device (Kyleena) omalizumab 150 mg/mL subcutaneous 300 mg (2 mL) subcut .COMPLEX #4 mL 12/09/22 03/30/23 Rx syringe (Xolair) cyanocobalamin (vitamin B-12) 1,000 mcg IM .EVERY 14 DAYS 12/10/22 03/30/23 History 1,000 mcg/mL injection solution pyridostigmine bromide 60 mg tablet 60 mg PO BID muscle spasticity 12/10/22 03/30/23 History pyridostigmine bromide 60 mg tablet 60 mg PO HS 12/10/22 03/30/23 History triamcinolone acetonide 0.1 % 1 applic topical BID PRN hives 12/10/22 03/30/23 History topical ointment tizanidine 2 mg tablet 2 mg PO HS PRN muscle spasticity 12/12/22 03/30/23 Rx #90 tabs naloxone 4 mg/actuation nasal 4 mg intranasal Q2M PRN opioid 01/03/23 03/30/23 Rx spray (Narcan) overdose #2 ea spironolactone 50 mg tablet 50 mg PO DAILY #90 tabs 01/07/23 03/30/23 Rx lactated Ringers 1 ea IV .COMPLEX 01/09/23 03/30/23 History magnesium oxide 400 mg PO BID 01/09/23 03/30/23 History hydrocodone bitartrate 30 mg 30 mg PO DAILY #30 tabs 02/07/23 03/30/23 Rx tablet,crush resist,extended rel. 24hr levothyroxine 125 mcg capsule 125 mcg PO DAILY #90 caps 02/13/23 03/30/23 Rx (Tirosint) lemborexant 5 mg tablet 5 mg PO HS #30 tabs 03/07/23 03/30/23 Rx oxycodone 5 mg tablet 5 mg PO DAILY PRN Breakthrough 03/07/23 03/30/23 Rx Pain #5 tabs colesevelam 625 mg tablet (WelChol) 1,250 mg PO BID #120 tabs 03/20/23 03/30/23 Rx hydroxyzine HCl 25 mg tablet 25 mg PO TID PRN Allergy 03/20/23 03/30/23 History cyclobenzaprine 10 mg tablet 20 mg PO QAM #180 tabs 03/21/23 03/30/23 Rx Magnesium Sulfate In Lac Ring 2 g IV DIRECTED 03/30/23 03/30/23 History alprazolam 1 mg disintegrating 1 mg PO AMHS 03/30/23 03/30/23 History tablet alprazolam 1 mg disintegrating 1 mg PO DAILY PRN Anxiety 03/30/23 03/30/23 History tablet esomeprazole magnesium 40 mg 40 mg PO BID 03/30/23 03/30/23 History capsule,delayed release melatonin 10 mg tablet 10 mg PO HS 03/30/23 03/30/23 History molnupiravir 200 mg capsule (EUA) 800 mg PO Q12H 5 days #40 caps 03/30/23 03/30/23 Rx tirzepatide 5 mg/0.5 mL 5 mg subcut .WEEKLY/HOLD 03/30/23 03/30/23 History subcutaneous pen injector (Farida) Past Med/Surg History Medical History Acquired autoimmune hypothyroidism Anxiety and depression Asthma Cardiac murmur Chronic idiopathic urticaria Chronic pain Cramps of lower extremity Dercum's disease Dislocated thumb Edema Igsele-Danlos syndrome Endometriosis Eosinophilic esophagitis Gastroparesis GERD (gastroesophageal reflux disease) Hiatal hernia History of colitis 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 Magnesium deficiency Mast cell activation syndrome Obesity, morbid, BMI 40.0-49.9 PCOS (polycystic ovarian syndrome) Polycystic ovarian disease POTS (postural orthostatic tachycardia syndrome) Pyloric stenosis Surgical History H/O knee surgery History of anesthesia reaction History of ankle surgery History of colonoscopy History of esophagogastroduodenoscopy (EGD) History of foot surgery History of hip surgery History of laparoscopy History of mandibular surgery History of removal of retained hardware Hx of shoulder surgery Port-A-Cath in place Family History Family/Other Family history of esophageal cancer Father Melanoma Lewy body dementia Mother Diabetes Hypertension Other Cancer No family history of adverse response to anesthesia Denies family history of Ovarian cancer Prostate cancer Myocardial infarction Breast cancer Colorectal cancer Social History Smoking Status: Light tobacco smoker Tobacco Type: E-cigarettes / Vaping Second Hand Exposure: No; Do You Dip or Chew Tobacco: No; Hx Alcohol Use: Yes Alcohol type: beer and wine Alcohol Intake Frequency: 4 or More x per/Week Hx Substance Use: No Preferred Language: Pashto Communication Ability: Effective Visual Impairment: No Limitations Hearing Ability: Normal Circulation Director Required: No Beliefs That Will Affect Care: None marital status: Single Current Living Situation: Alone Current Living Situation Comment: has caregiver in same apartment building current occupational status: employed 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 Dental Care, Regularly: Yes Physical Activity Frequency: Does not Exercise Seatbelt Use: always Sunscreen Use: Yes Assistive Devices: Cane and Glasses Review of Systems Review of Systems: All systems reviewed & are unremarkable except as noted in HPI & below Physical Exam Physical Exam: General: A&Ox3. NAD. Cooperative. HEENT: Atraumatic, normocephalic./Hearing intact. Tender to palpation over occiput. Pulm: CTAB A&P. -wheezes, -rales, -rhonchi. Symmetrical chest rise. No increased work of breathing. No respiratory distress. Cardiac: Tachycardic, -mrg. Radial pulses intact and symmetrical. Left subclavian port intact, no overriding warmth/erythema Abdominal: Nontender, nondistended, soft. BS present. Extremities: Warm, dry. Results & Data Results & Data Vital Signs (Past 12 Hours) Vital Signs Temp Pulse Resp BP Pulse Ox O2 Del Method 03/30/23 18:32 Room Air 03/30/23 15:09 36.2 C L 128 H 20 132/85 96 Room Air PG Care Time/CCT Total # of Minutes Spent Total Time Spent with Patient: Total time spent is greater than 50% in coordination of care (as documented) at patient's floor/unit and/or counseling patient: Coding Level of Care Code 09701 INT INP/OBS CARE 3/75MIN Diagnoses COVID U07.1 Weakness R53.1 PCOS (polycystic ovarian syndrome) E28.2 Acquired autoimmune hypothyroidism E06.3 Gastroparesis K31.84 Cervical myelopathy G95.9 Giesle-Danlos syndrome Q79.60 GERD (gastroesophageal reflux disease) K21.9 Chronic idiopathic urticaria L50.1 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
[2023-03-30 19:18] LABS: Magnesium 1.4 mg/dl (1.7-2.4)
[2023-03-30 19:28] LABS: Influenza A virus by PCR Negative (Neg); Influenza B virus by PCR Negative (Neg); RSV by PCR Negative (Neg)
[2023-03-30 19:30] LABS: Troponin I High Sensitivity 2.3 pg/ml (0-14)
[2023-03-30 19:31] LABS: SARS CoV2 RNA(COVID-19) Ceph POSITIVE (Negative)
[2023-03-30] MEDS: MAGNESIUM SULFATE / D5W 1 GM/100 ML BAG IV SCH ×2 (20:49→21:54)
--- NOTE | 2023-03-30 21:22 | CT Scan Report ---
Exam(s): CT C SPINE EXAM: CT Cervical Spine Without Intravenous Contrast CLINICAL HISTORY: Reason for exam: fall, neck pain, OI. TECHNIQUE: Axial computed tomography images of the cervical spine without intravenous contrast. CTDI is 21.03 mGy and DLP is 444.53 mGy-cm. Automated exposure control was utilized for the study. A dose lowering technique was utilized adhering to the principles of ALARA. COMPARISON: No relevant prior studies available. FINDINGS: Vertebrae: Straightening of the cervical spine. No acute fracture or subluxation. Discs/spinal canal/neural foramina: No acute findings. No spinal canal stenosis. Soft tissues: Unremarkable. IMPRESSION: Straightening of the cervical spine. No acute fracture or subluxation. Electronically signed by: Chantel Hernandez M.D. 03/30/23 21:21 PM
[2023-03-30] MEDS ORDERED: oxyCODONE HCL IR 5 MG TAB (IMMEDIATE RELEASE) PO PRN (22:42)
[2023-03-30] MEDS ORDERED: ALPRAZolam 0.5 MG TABLET PO PRN ×2 (22:42→23:15)
[2023-03-30] MEDS ORDERED: MIDODRINE HCL 2.5 MG TAB PO PRN (22:42)
[2023-03-30] MEDS ORDERED: tiZANidine HCL 4 MG TABLET PO PRN (22:42)
[2023-03-30] MEDS ORDERED: LACTATED RINGER'S 1,000 ML IV SCH (22:42)
[2023-03-30] MEDS ORDERED: ONDANSETRON INJ 2 MG/ML 2 ML VIAL IV PRN (22:42)
[2023-03-30] MEDS ORDERED: diphenhydrAMINE Capsule 25 MG CAP PO ONE (23:45)
[2023-03-31] MEDS: MONTELUKAST SODIUM 10 MG TABLET PO SCH ×3 (00:35→20:22)
[2023-03-31] MEDS: PANTOprazole 40 MG TAB PO SCH ×4 (00:36→20:22)
[2023-03-31] MEDS: ALPRAZolam 0.5 MG TABLET PO SCH ×3 (00:36→20:22)
[2023-03-31] MEDS: pyRIDostigmine bromide 60 MG TAB PO SCH ×4 (00:36→20:22)
[2023-03-31] MEDS: MAGNESIUM SULFATE / D5W 1 GM/100 ML BAG IV SCH ×2 (00:38→02:57)
[2023-03-31] MEDS ORDERED: BENZONATATE 100 MG CAPSULE ONE (01:36)
[2023-03-31] MEDS: BENZONATATE 100 MG CAPSULE PO SCH ×3 (01:38→20:22)
[2023-03-31] MEDS: ACETAMINOPHEN 325 MG TAB PO PRN ×2 (01:38→09:39)
[2023-03-31 05:34] LABS: Basophils # (auto) 0.03 K/uL (0.00-0.20); Basophils % (auto) 0.7 %; Eosinophils # (auto) 0.09 K/uL (0.00-0.50); Eosinophils % (auto) 2.1 %; Hematocrit (blood only) 36.3 % (37.0-47.0); Immature Granulocytes # (auto) 0.01 K/uL (0.01-0.20); Immature Granulocytes % (auto) 0.2 %; Lymphocytes # (auto) 1.36 K/uL (1.20-3.40); Lymphocytes % (auto) 31.9 %; Mean Corpuscular Hemoglobin 31.3 pg (25.0-34.0); Mean Corpuscular Hgb Conc 33.1 g/dL (32.0-36.0); Mean Corpuscular Volume 94.5 fL (80.0-100.0); Mean Platelet Volume 9.2 fL (9.4-12.4); Monocytes # (auto) 0.37 K/uL (0.11-0.59); Monocytes % (auto) 8.7 %; Neutrophils % (auto) 56.4 %; Platelet Count 272 K/uL (130-400); RDW Coefficient of Variation 13.2 % (11.5-14.5); RDW Standard Deviation 45.4 fL (36.4-46.3); Red Blood Count 3.84 M/uL (4.20-5.40); White Blood Count 4.26 K/ul (4.8-10.8)
[2023-03-31 05:37] LABS: Albumin Level 3.4 gm/dl (3.4-5.0); BUN Creatinine Ratio 7.4 (10-20); Bilirubin Direct 0.5 mg/dl (0-0.2); Bilirubin,Total 0.9 mg/dl (0.2-1.0); Calcium 8.5 mg/dl (8.6-10.3); Creatinine Clr Calc Pharmacy 84.8 ml/min; Est GFR (Non-African American) 56.9 ml/min; Magnesium 2.6 mg/dl (1.7-2.4); Total Protein 5.9 gm/dl (6.0-8.3)
[2023-03-31] MEDS: LEVOTHYROXINE SODIUM 125 MCG TABLET PO SCH (05:56)
[2023-03-31] MEDS ORDERED: MoRPHine SULFATE 2 MG/ML CARP IV STA (06:00)
[2023-03-31] MEDS ORDERED: MoRPHine SULFATE 2 MG/ML CARP ONE (06:08)
[2023-03-31] MEDS ORDERED: NON-FORMULARY MEDICATION (Colesevelam [Welchol] 625 mg tablet) PO SCH (09:00)
[2023-03-31] MEDS ORDERED: pyRIDostigmine bromide 60 MG TAB PO SCH (09:00)
[2023-03-31] MEDS ORDERED: HYDROCODONE BITARTRATE 30 MG PO SCH (09:00)
[2023-03-31] MEDS ORDERED: [UNRECOGNIZED DRUG - OTHER] PO SCH (09:00)
[2023-03-31] MEDS: SPIRONOLACTONE 25 MG TAB PO SCH (09:09)
[2023-03-31] MEDS: CYCLOBENZAPRINE HCL 10 MG TAB PO SCH (09:09)
[2023-03-31] MEDS: MOLNUPIRAVIR 200 MG PO SCH ×3 (10:39→20:22)
[2023-03-31] MEDS ORDERED: oxyCODONE HCL IR 5 MG TAB (IMMEDIATE RELEASE) PO PRN ×3 (10:39→18:51)
--- NOTE | 2023-03-31 15:06 | Ultrasound Report ---
ABDOMINAL ULTRASOUND, RIGHT UPPER QUADRANT HISTORY: COVID+, abnl LFTs. COMPARISON: Abdomen and pelvis CT 10/26/2021. FINDINGS: Pancreas: The pancreas demonstrates a normal echotexture. Liver: The liver is echogenic consistent with fatty change. 18 cm in length. No hepatic masses. Gallbladder: No gallbladder wall thickening. No gallstones. CBD: Upper limits of normal measuring 6 mm. Right kidney: No hydronephrosis. IMPRESSION: 1. Normal gallbladder. No gallstones. 2. Hepatic steatosis ACT 112: Negative or not required by law. Electronically signed by: Ernesto Giles M.D. 03/31/2023 3:04 PM
[2023-03-31 18:13] LABS: C Reactive Protein 3.82 mg/dl (0-0.5)
[2023-03-31] MEDS: MoRPHine SULFATE CR 15 MG TABCR PO SCH ×2 (19:46→20:21)
[2023-03-31] MEDS: ENOXAPARIN INJ 40 MG/0.4 ML SYR SQ SCH ×2 (19:47→20:23)
--- NOTE | 2023-03-31 20:49 | Hospitalist Progress Note ---
Date of Service March 31, 2023 Assessment & Plan (1) COVID: Plan: She is about 3 days into her illness. She has numerous flu-like symptoms. No evidence of lower respiratory tract infection - deferring on steroids for now. Continue MOLNUPIRAVIR 800 MG BID x 5 days Continue airborne isolation. Checked lipase due to abnormal LFTs & GI symptoms - normal. Acute hepatitis likely 2nd to COVID itself. CRP only mildly elevated. Cont supportive care. (2) Acute hepatitis: Plan: Likely 2nd to COVID infection. RUQ u/s obtained -- no evidence of acute biliary tract disease (CBD size wnl, GB wnl - just fatty liver). Will repeat LFTs in am. Avoid tylenol. Checked with pharmacy - there is no dose adjustment in hepatic impairment with Molnupiravir. 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: Plan: TSH 1.9 in January Cont outpatient dose of synthroid (11) Chronic narcotic dependence: Plan: Typically on 30mg/day of long-acting hydrocodone along with prn use of toradol for headaches and seldom use of prn oxycodone Diffuse pains today - checked CPK - wnl Much of her pain is being exacerbated by her COVID illness She does not have the chronic long-acting hydrocodone with her Thus, checked with pharmacy, alternative is MS-contin 15mg BID based on mg Will order such Allow oxycodone 7.5mg q6h prn Ordered toradol 30mg q6h prn Avoid tylenol for now due to hepatitis from COVID (12) Dysautonomia orthostatic hypotension syndrome: Plan: COVID can cause POTS and can exacerbate pre-existing POTS If any dizziness or worsening of orthostasis schedule the midodrine TID rather than prn (13) Mast cell disorder: (14) Hypomagnesemia: Plan: replaced resolved (15) Obesity, morbid, BMI 40.0-49.9: Plan: BMI 43 (16) Edema: Plan: RLE is worse than LLE Given the COVID infection will check dopplers - r/o DVT Worsening of her baseline edema could be from #2 but albumin is normal simply follow carefully if dopplers are negative (17) Asthma: Plan: any development of asthma symptoms triggered by COVID --> start dexamethasone, add bronchodilators, etc Plan DVT proph - lovenox, but increase to BID dosing Admission and Anticipated Discharge Date Admission Date: March 30, 2023 Subjective patient with multiple complaints during the visit - 1. fatigue, weakness, simply feeling poorly 2. diffuse myalgias 3. b/l LE edema, worse on right 4. headache 5. poor appetite 6. mild cough with pain/tightness b/l lower chest 7. had multiple falls at home; she denies any specific area that is hurting from the falls; thinks she dislocated the left wrist but it is back to normal she reports she forgot to bring in her extended release hydrocodone from home has been on such for 18+ months she is about 3 days into her COVID illness has had multiple COVID vaccines & boosters this is the first time she has had COVID Review of Systems Review of Systems: gen - fevers/chills/sweats, poor appetite, very weak cv - no substernal cp, no pleuritic pain pulm - mild sputum GI - no vomiting today Physical Exam Physical Exam: gen - morbidly obese, ill but no distress, nontoxic mouth - MMM neck - no JVD heart - borderline tachy, s1 s2, no murmur lungs - CTA b/l, no wheeze, no rales, air airation abd - soft, mildly tender RUQ, liver edge palpable, BS+, ND ext - <1+ edema b/l legs, RLE is larger than LLE; pulses 2+ b/l psych - a/o x 3 musculo - no joint abnormalities upper/lower exts; no synovitis of any joint either hand Results & Data Results & Data Vital Signs (Past 12 Hours) Vital Signs Temp Pulse Resp BP Pulse Ox O2 Del Method 03/31/23 20:07 37.5 C 109 H 20 104/67 92 Room Air 03/31/23 15:06 37.1 C 93 H 18 114/78 99 Room Air 03/31/23 12:10 37.1 C 88 18 103/71 96 Room Air Laboratory Results Laboratory Results - last 24 hr 03/31/23 03/31/23 03/31/23 05:04 05:04 10:49 WBC 4.26 L RBC 3.84 L Hgb 12.0 Hct 36.3 L MCV 94.5 MCH 31.3 MCHC 33.1 RDW Std Deviation 45.4 RDW Coeff of Reynold 13.2 Plt Count 272 MPV 9.2 L Immature Gran % (Auto) 0.2 Neut % (Auto) 56.4 Lymph % (Auto) 31.9 Walsh % (Auto) 8.7 Eos % (Auto) 2.1 Baso % (Auto) 0.7 Neut # (Auto) 2.40 Lymph # (Auto) 1.36 Walsh # (Auto) 0.37 Eos # (Auto) 0.09 Baso # (Auto) 0.03 Immature Gran # (Auto) 0.01 Sodium 134 L Potassium 4.0 Chloride 105 Carbon Dioxide 22 Anion Gap 7 BUN 9 Creatinine 1.22 H Est Cr Clr Drug Dosing 84.8 Est GFR ( Amer) 66.0 Est GFR (Non-Af Amer) 56.9 BUN/Creatinine Ratio 7.4 L Glucose 86 Calcium 8.5 L Magnesium 2.6 H Total Bilirubin 0.9 D Direct Bilirubin 0.5 H AST 431 H ALT 279 H Alkaline Phosphatase 101 Total Creatine Kinase 36 C-Reactive Protein 3.82 H Total Protein 5.9 L Albumin 3.4 Lipase 7 L PG Care Time/CCT Total # of Minutes Spent Total Time Spent with Patient: Total time spent is greater than 50% in coordination of care (as documented) at patient's floor/unit and/or counseling patient: Coding Level of Care Code 15883 SUB INP/OBS CARE 3/50MIN Diagnoses COVID U07.1 Acute hepatitis B17.9 Weakness R53.1 PCOS (polycystic ovarian syndrome) E28.2 Gastroparesis K31.84 Cervical myelopathy G95.9 Gisele-Danlos syndrome Q79.60 GERD (gastroesophageal reflux disease) K21.9 Chronic idiopathic urticaria L50.1 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
--- NOTE | 2023-03-31 23:11 | Ultrasound Report ---
ULTRASOUND BILATERAL LOWER EXTREMITY VENOUS CLINICAL HISTORY: Extremity edema. Leg pain. Covid. COMPARISON STUDY: Bilateral lower extremity venous ultrasound dated 10/28/2022. TECHNIQUE: Real-time, grayscale, and color Doppler sonography of the deep veins of the right and left lower extremity was performed from the inguinal crease to the calf. Compression and augmentation wer e utilized. FINDINGS: There is no sonographic evidence of deep venous thrombosis identified in the right or left lower extremity. The common femoral, superficial femoral, and popliteal veins are patent and normally compressible bilaterally. The greater saphenous vein and the profunda femoris vein at the junction w ith the common femoral vein are clear in both legs. The visualized calf veins are patent bilaterally. IMPRESSION: There is no sonographic evidence of deep venous thrombosis identified in the right or lef t lower extremity. ACT 112: Negative or not required by law. Electronically signed by: Dinesh Damon M.D. 03/31/2023 11:10 PM
[2023-04-01] MEDS ORDERED: NALTREXONE 4.5 MG SCH
[2023-04-01] MEDS: LEVOTHYROXINE SODIUM 125 MCG TABLET PO SCH (05:43)
[2023-04-01] MEDS: KETOROLAC 30 MG/ML VIAL IV PRN (06:07)
[2023-04-01] MEDS ORDERED: hydrOXYzine HCl 25 MG TAB PO STA (06:33)
[2023-04-01 07:13] LABS: Basophils # (auto) 0.02 K/uL (0.00-0.20); Basophils % (auto) 0.6 %; Eosinophils # (auto) 0.09 K/uL (0.00-0.50); Eosinophils % (auto) 2.5 %; Hematocrit (blood only) 38.3 % (37.0-47.0); Hemoglobin 12.7 g/dl (12.0-16.0); Immature Granulocytes # (auto) 0.01 K/uL (0.01-0.20); Immature Granulocytes % (auto) 0.3 %; Lymphocytes # (auto) 1.45 K/uL (1.20-3.40); Mean Corpuscular Hemoglobin 31.2 pg (25.0-34.0); Mean Corpuscular Hgb Conc 33.2 g/dL (32.0-36.0); Mean Corpuscular Volume 94.1 fL (80.0-100.0); Mean Platelet Volume 9.4 fL (9.4-12.4); Monocytes # (auto) 0.32 K/uL (0.11-0.59); Neutrophils # (auto) 1.65 K/uL (1.40-6.50); Neutrophils % (auto) 46.6 %; Platelet Count 264 K/uL (130-400); RDW Coefficient of Variation 13.2 % (11.5-14.5); RDW Standard Deviation 45.4 fL (36.4-46.3); Red Blood Count 4.07 M/uL (4.20-5.40); White Blood Count 3.54 K/ul (4.8-10.8)
[2023-04-01 07:32] LABS: Albumin Level 3.6 gm/dl (3.4-5.0); BUN Creatinine Ratio 4.4 (10-20); Bilirubin Direct 0.4 mg/dl (0-0.2); Bilirubin,Total 0.8 mg/dl (0.2-1.0); Calcium 9.1 mg/dl (8.6-10.3); Creatinine Clr Calc Pharmacy 91.6 ml/min; Est GFR (African American) 72.4 ml/min; Est GFR (Non-African American) 62.5 ml/min; Potassium 4.4 mmol/L (3.5-5.1); Total Protein 6.2 gm/dl (6.0-8.3)
[2023-04-01] MEDS: PANTOprazole 40 MG TAB PO SCH ×2 (07:46→21:29)
[2023-04-01] MEDS: SPIRONOLACTONE 25 MG TAB PO SCH (07:47)
[2023-04-01] MEDS: pyRIDostigmine bromide 60 MG TAB PO SCH ×2 (07:48→21:28)
[2023-04-01] MEDS: MOLNUPIRAVIR 200 MG PO SCH ×2 (07:49→21:29)
[2023-04-01] MEDS: ENOXAPARIN INJ 40 MG/0.4 ML SYR SQ SCH ×2 (08:03→21:27)
[2023-04-01] MEDS: BENZONATATE 100 MG CAPSULE PO SCH ×3 (08:03→21:27)
[2023-04-01] MEDS: CYCLOBENZAPRINE HCL 10 MG TAB PO SCH (08:03)
[2023-04-01] MEDS: MoRPHine SULFATE CR 15 MG TABCR PO SCH ×2 (08:04→21:27)
[2023-04-01] MEDS: ALPRAZolam 0.5 MG TABLET PO SCH ×2 (08:16→21:27)
[2023-04-01] MEDS ORDERED: LIOTHYRONINE SODIUM 5 MCG TAB PO SCH (09:00)
[2023-04-01] MEDS ORDERED: diphenhydrAMINE Capsule 25 MG CAP PO PRN (09:07)
[2023-04-01] MEDS: ACETAMINOPHEN 325 MG TAB PO PRN (15:33)
[2023-04-01] MEDS ORDERED: MECLIZINE 12.5 MG TAB PO PRN (17:56)
[2023-04-01] MEDS ORDERED: SODIUM CHLORIDE 0.9% 1,000 ML IV SCH (18:00)
[2023-04-01] MEDS: diphenhydrAMINE 50 MG/ML VIAL IV PRN (18:29)
--- NOTE | 2023-04-01 18:51 | Electrocardiogram Report ---
Test Reason : Blood Pressure : / mmHG Vent. Rate : 122 BPM Atrial Rate : 122 BPM P-R Int : 132 ms QRS Dur : 076 ms QT Int : 306 ms P-R-T Axes : 060 062 038 degrees QTc Int : 436 ms Sinus tachycardia Nonspecific ST abnormality Otherwise normal ECG When compared with ECG of 10-DEC-2022 17:54, No significant change was found Confirmed by Gabriel Reed ([id number]) on 04/01/2023 6:51:08 PM Referred By: REFERRED SELF Confirmed By:Jaylen Reed
[2023-04-01] MEDS: ALBUTEROL HFA 8 GM INHALER INH SCH (19:17)
--- NOTE | 2023-04-01 20:36 | Hospitalist Progress Note ---
Date of Service April 01, 2023 Assessment & Plan (1) COVID: Plan: She is about 4 days into her illness. She has numerous flu-like symptoms. No evidence of lower respiratory tract infection - o2 sats wnl; continue to defer on IV or PO steroids. Continue MOLNUPIRAVIR 800 MG BID x 5 days; day #2 of such. Continue airborne isolation. Checked lipase due to abnormal LFTs & GI symptoms - normal. Acute hepatitis likely 2nd to COVID itself. LFTs should peak and then start to improved. RUQ u/s negative for acute biliary findings. Leukopenia is 2nd to COVID itself - should plateau then improve next few days. Acute vertigo likely due to inner ear involvement from COVID - antivert prn. I am concerned by the complaint of diplopia thus check MRI brain - r/o acute CVA in the setting of her COVID illness. CRP checked and only mildly elevated. Cont supportive care. (2) Acute hepatitis: Plan: Likely 2nd to COVID infection. RUQ u/s obtained -- no evidence of acute biliary tract disease (CBD size wnl, GB wnl - just fatty liver). Repeat LFTs today with some indices better and others slightly higher. Suspect they will plateau soon, however. Avoid tylenol. Recheck LFTs am. Checked with pharmacy - there is no dose adjustment in hepatic impairment with Molnupiravir the antiviral she is using for her COVID. (3) Dysautonomia orthostatic hypotension syndrome: Plan: COVID can cause POTS and can exacerbate pre-existing POTS She complaints today of worsening POTS symptoms Schedule her midodrine TID rather than prn NS hydration x 1 liter then saline lock (4) Vertigo: Plan: Likely mild inner ear infection from COVID Antivert prn (5) Diplopia: Plan: Vestibular neuronitis from viral process/COVID would be unusual to cause double vision Fortunately exam is reassuring and the diplopia is not persistent [id number] - obtain MRI head, r/o CVA (6) Right knee pain: Plan: MRI right knee ordered ?meniscal tear? 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: Plan: TSH 1.9 in January Cont outpatient dose of synthroid (15) Chronic narcotic dependence: Plan: Typically on 30mg/day of long-acting hydrocodone along with prn use of toradol for headaches and seldom use of prn oxycodone Diffuse myalgias - checked CPK - wnl Much of her pain is being exacerbated by her COVID illness She does not have the chronic long-acting hydrocodone with her Cont MS-contin 15mg BID until she d/c home Cont oxycodone 7.5mg q6h prn Cont toradol 30mg q6h prn Avoid tylenol for now due to hepatitis from COVID (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: (17) Hypomagnesemia: Plan: replaced resolved (18) Obesity, morbid, BMI 40.0-49.9: Plan: BMI 43 (19) Edema: Plan: RLE is worse than LLE Given the COVID infection checked dopplers - negative for DVT Worsening of her baseline edema could be from #2 but albumin is normal follow for now (20) Asthma: Plan: no flare, but will schedule some albuterol TID for cough/congestion (21) Generalized pruritus: Plan: likely due to histamine release from MS-contin in setting of dry skin order eucerin cream BID for dry skin order benadryl IV prn itching Plan DVT proph - lovenox BID dosing Skin rash on right foot - lotrisone BID in thin amounts if she is feeling ok tomorrow and LFTs are stable likely can d/c home very complex medical care with numerous issues addressed today extensive records review performed Admission and Anticipated Discharge Date Admission Date: March 30, 2023 Subjective tele stable overnight patient worked with PT/OT - did generally well with them although walking was limited due to the size of her room she reports a list of issues/complaints - 1. several episodes of vertigo with movement - brief, <30 seconds 2. double vision with #1 above - has never had this before; denies visual field cuts; denies focal motor weakness 3. dizziness/lightheadedness due to her POTS; she reports not taking her midodrine consistently at home 4. right ear fullness 5. cough with sputum (yellow) - this is new today 6. sore throat, nasal congestion 7. ongoing myalgias 8. inquires if her right knee MRI which was scheduled for tonight at 2100 (ordered by [facility] Ortho [address] [place]send) could be obtained since she is already here 9. she does report having an albuterol inhaler -- in fact, during the visit, she got out of bed and went to her personal belongings bag - she had an old ventolin inhaler but it was 2019 10. generalized itching but no rash - asks that benadryl be changed from PO to IV 11. itchy rash over right foot; present for months-years? has seen dermatology in the past - prescribed steroid cream; comes/goes Review of Systems Review of Systems: gen - no fevers; eating fair at best but drinking good fluids cv - no pleuritic pain; ongoing discomfort at bottoms of costal margins pulm - no dyspnea or BAJWA; +cough, +sputum GI - no vomiting; no diarrhea Physical Exam Physical Exam: gen - morbidly obese, looks better today, comfortable; was able to get up from bed without any assistance mouth - MMM, posterior throat with mild erythema; tonsils absent neck - no JVD ear - right - canal clear, TM retracted, normal landmarks otherwise eyes - EOMI, minimal nystagmus with leftward gaze, PERRL heart - RRR, s1 s2, no murmur lungs - CTA b/l, no wheeze, no rales, modestly decreased BS bases abd - soft, mildly tender RUQ, liver edge palpable (couple CM below costal margin), BS+, ND ext - <1+ edema b/l legs, RLE is larger than LLE (chronic); pulses 2+ b/l psych - a/o x 3 skin - dry skin arms, legs, back, etc; no generalized rashes; right foot - chronic appearing scaly erythematous rash neuro - finger/nose/finger maneuver wnl/no ataxia; when she get out of bed she had no ataxia Results & Data Results & Data Vital Signs (Past 12 Hours) Vital Signs Temp Pulse Pulse Resp BP Pulse Ox O2 Del Method 04/01/23 20:26 37.0 C 88 20 106/70 96 Room Air 04/01/23 19:18 81 18 97 Room Air 04/01/23 15:45 90 04/01/23 13:22 86 17 102/67 97 Room Air 04/01/23 09:11 Room Air 04/01/23 08:55 77 Laboratory Results Laboratory Results - last 24 hr 04/01/23 04/01/23 05:50 05:50 WBC 3.54 L RBC 4.07 L Hgb 12.7 Hct 38.3 MCV 94.1 MCH 31.2 MCHC 33.2 RDW Std Deviation 45.4 RDW Coeff of Reynold 13.2 Plt Count 264 MPV 9.4 Immature Gran % (Auto) 0.3 Neut % (Auto) 46.6 Lymph % (Auto) 41.0 Boyd % (Auto) 9.0 Eos % (Auto) 2.5 Baso % (Auto) 0.6 Neut # (Auto) 1.65 Lymph # (Auto) 1.45 Boyd # (Auto) 0.32 Eos # (Auto) 0.09 Baso # (Auto) 0.02 Immature Gran # (Auto) 0.01 Sodium 137 Potassium 4.4 Chloride 104 Carbon Dioxide 26 Anion Gap 7 BUN 5 L Creatinine 1.13 Est Cr Clr Drug Dosing 91.6 Est GFR ( Amer) 72.4 Est GFR (Non-Af Amer) 62.5 BUN/Creatinine Ratio 4.4 L Glucose 81 Calcium 9.1 Total Bilirubin 0.8 Direct Bilirubin 0.4 H AST 352 H ALT 404 H Alkaline Phosphatase 187 H Total Protein 6.2 Albumin 3.6 PG Care Time/CCT Total # of Minutes Spent Total Time Spent with Patient: Total time spent is greater than 50% in coordination of care (as documented) at patient's floor/unit and/or counseling patient: Coding Level of Care Code 45412 SUB INP/OBS CARE 3/50MIN Diagnoses COVID U07.1 Acute hepatitis B17.9 Dysautonomia orthostatic hypotension syndrome I95.1 Vertigo R42 Diplopia H53.2 Right knee pain M25.561 Weakness R53.1 PCOS (polycystic ovarian syndrome) E28.2 Gastroparesis K31.84 Cervical myelopathy G95.9 Gisele-Danlos syndrome Q79.60 GERD (gastroesophageal reflux disease) K21.9 Chronic idiopathic urticaria L50.1 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
[2023-04-01] MEDS: MONTELUKAST SODIUM 10 MG TABLET PO SCH (21:28)
[2023-04-01] MEDS ORDERED: COUGH DROP (SUGAR FREE) LOZ 24 LOZ/1 BOX BUCCAL PRN (21:50)
[2023-04-01] MEDS: guaiFENesin 600 MG TABCR PO SCH (22:16)
[2023-04-01] MEDS: EUCERIN CR 120 GM JAR EXT SCH (22:17)
[2023-04-01] MEDS: CLOTRIMAZOLE/BETAMETHASONE CR 15 GM TUBE EXT SCH (22:18)
[2023-04-02] MEDS: KETOROLAC 30 MG/ML VIAL IV PRN (00:58)
--- NOTE | 2023-04-02 02:57 | Magnetic Resonance Report ---
Exam(s): MRI HEAD Without Contrast EXAM: MR Head Without Intravenous Contrast CLINICAL HISTORY: Reason for exam: diplopia, vertigo, COVID+; eval acute CVA. TECHNIQUE: Magnetic resonance images of the head/brain without intravenous contrast in multiple planes. COMPARISON: No relevant prior studies available. FINDINGS: Brain: Minimal nonspecific white matter changes. No mass. No hemorrhage. No acute infarct. The flow voids at the base of the brain are intact. Ventricles: Unremarkable. No ventriculomegaly. Bones/joints: Unremarkable. Sinuses: Chronic right maxillary, sphenoid and ethmoid sinusitis. No acute sinusitis. Mastoid air cells: Unremarkable as visualized. No mastoid effusion. Orbits: Unremarkable as visualized. IMPRESSION: No evidence of acute intracranial pathology. Minimal nonspecific white matter changes. Electronically signed by: Kacey Bullock MD 04/02/23 02:56 AM
--- NOTE | 2023-04-02 03:13 | Magnetic Resonance Report ---
Exam(s): MRI RIGHT KNEE Without Contrast EXAM: MR Right Lower Extremity Without Intravenous Contrast, Knee CLINICAL HISTORY: Reason for exam: ?medial meniscal tear?. TECHNIQUE: Multiplanar magnetic resonance images of the right knee without intravenous contrast. COMPARISON: Knee radiographs 03/07/23 FINDINGS: There are postoperative changes of the right knee. Foci of susceptibility artifact at the quadriceps attachment on the patella may represent previous quadriceps tendon repair. There are old screw tracts within the patella and distal femur, with linear regions of susceptibility artifact. Additional susceptibility artifact and subcutaneous scarring is noted in the prepatellar soft tissues. Reference radiographs suggests old screw tracks in the proximal tibia. Findings could reflect corrective surgery for patellar maltracking. Correlation with operative history is recommended. Patellar retinacular structures appear chronically thickened, with probable postoperative change of the lateral retinaculum. There are regions of moderate to high-grade chondral loss from the patella and trochlea. Quadriceps and patellar tendons are intact. There is no evidence of acute fracture or dislocation. There is generalized mild chondral thinning from the patellofemoral joint, with focally moderate to high-grade chondral loss from the peripheral aspect of the medial tibial plateau. Lateral meniscus is intact. There is blunting of the inner margin of the medial meniscus. There is mild bone marrow edema subjacent to the body of the medial meniscus. Anterior and posterior cruciate ligaments appear intact. Lateral ligaments and supporting structures appear intact. Medial collateral ligament appears intact. There may have been previous medial collateral ligament repair. There is a physiologic volume of joint fluid. There is no significant popliteal cyst. There is subcutaneous edema along the lateral aspect of the knee, which may represent soft tissue contusion. IMPRESSION: 1. Possible soft tissue contusion along the medial aspect of the knee. 2. Blunting of the inner margin of the body of the medial meniscus. In the absence of previous partial meniscectomy, findings suggest mild inner margin tearing. No displaced meniscal tissue. 3. Mild bone marrow edema subjacent to the body of the medial meniscus, probably due to overlying moderate chondral loss, with bone contusion considered less likely. 4. Multifocal regions of moderate to high-grade patellofemoral chondral loss. 5. Extensive postoperative changes of the knee, as above. Correlate with operative history. Electronically signed by: Chantel Hernandez M.D. 04/02/23 03:12 AM
[2023-04-02] MEDS: LEVOTHYROXINE SODIUM 125 MCG TABLET PO SCH (05:54)
[2023-04-02 07:19] LABS: Hematocrit (blood only) 36.1 % (37.0-47.0); Hemoglobin 11.9 g/dl (12.0-16.0); Mean Corpuscular Hemoglobin 31.5 pg (25.0-34.0); Mean Corpuscular Volume 95.5 fL (80.0-100.0); Mean Platelet Volume 9.4 fL (9.4-12.4); Platelet Count 255 K/uL (130-400); RDW Coefficient of Variation 13.1 % (11.5-14.5); RDW Standard Deviation 45.8 fL (36.4-46.3); Red Blood Count 3.78 M/uL (4.20-5.40); White Blood Count 4.78 K/ul (4.8-10.8)
[2023-04-02] MEDS: ALBUTEROL HFA 8 GM INHALER INH SCH ×2 (07:20→12:27)
[2023-04-02] MEDS: guaiFENesin 600 MG TABCR PO SCH (07:23)
[2023-04-02] MEDS: ALPRAZolam 0.5 MG TABLET PO SCH (07:23)
[2023-04-02] MEDS: BENZONATATE 100 MG CAPSULE PO SCH (07:23)
[2023-04-02] MEDS: CYCLOBENZAPRINE HCL 10 MG TAB PO SCH (07:23)
[2023-04-02] MEDS: MoRPHine SULFATE CR 15 MG TABCR PO SCH (07:23)
[2023-04-02] MEDS: PANTOprazole 40 MG TAB PO SCH (07:25)
[2023-04-02 07:26] LABS: INR 0.9 (0.9-1.1); Prothrombin Time 9.8 Seconds (9.0-12.0)
[2023-04-02] MEDS: MIDODRINE HCL 2.5 MG TAB PO SCH ×2 (07:26→11:18)
[2023-04-02] MEDS: CLOTRIMAZOLE/BETAMETHASONE CR 15 GM TUBE EXT SCH (07:27)
[2023-04-02] MEDS: ENOXAPARIN INJ 40 MG/0.4 ML SYR SQ SCH (07:28)
[2023-04-02] MEDS: EUCERIN CR 120 GM JAR EXT SCH (07:28)
[2023-04-02] MEDS: SPIRONOLACTONE 25 MG TAB PO SCH (07:29)
[2023-04-02] MEDS: MOLNUPIRAVIR 200 MG PO SCH (07:29)
[2023-04-02] MEDS: pyRIDostigmine bromide 60 MG TAB PO SCH (07:33)
[2023-04-02] MEDS: diphenhydrAMINE 50 MG/ML VIAL IV PRN (07:42)
[2023-04-02 07:47] LABS: Albumin Level 3.1 gm/dl (3.4-5.0); BUN Creatinine Ratio 9.6 (10-20); Bilirubin Direct 0.1 mg/dl (0-0.2); Bilirubin,Total 0.3 mg/dl (0.2-1.0); Calcium 8.2 mg/dl (8.6-10.3); Est GFR (African American) 70.9 ml/min; Est GFR (Non-African American) 61.2 ml/min; Total Protein 5.7 gm/dl (6.0-8.3)
[2023-04-02 08:22] LABS: Basophils # (auto) 0.03 K/uL (0.00-0.20); Basophils % (auto) 0.6 %; Eosinophils # (auto) 0.31 K/uL (0.00-0.50); Eosinophils % (auto) 6.5 %; Immature Granulocytes # (auto) 0.01 K/uL (0.01-0.20); Immature Granulocytes % (auto) 0.2 %; Lymphocytes # (auto) 2.44 K/uL (1.20-3.40); Monocytes % (auto) 8.4 %; Neutrophils # (auto) 1.59 K/uL (1.40-6.50); Neutrophils % (auto) 33.3 %
--- NOTE | 2023-04-02 13:08 | Discharge Summary ---
Date of Service April 02, 2023 Admission HPI Per Admitting Provider Shu is a 38yo female with past medical history of PCOS, osteogenesis imperfecta, diss autonomic orthostatic hypotension, GERD, hypothyroidism, anxiety/depression, chronic pain, obesity, Marko's, Mastel activation syndrome and cervical spine instability who presents to the ER with several days of low-grade fever, tachycardia, body aches, and dry cough. She normally has a port in place for IV hydration for which she receives fluids at home. She reports that she has been so weak that she fell to the ground 4 times today without injuries. She has chronic diarrhea which has continued. Home COVID test was positive, she was diagnosed and given leg gave Reo at her PCPs office. Due to her severe weakness she is unable to function at home and presents for inpatient care. [place] endorses she went to [facility]. AFter than progressive sore throat, nausea, faituge, dry cough, vomiting. Thought it might be allergies then continued to get worse. Took 3 home COVID tests which were rapidly positive. Called her PCP and was prescribed an antiviral medication. Was trying to do OK at home, but had felt so washed out she cannot walk and fatigues easily. Tripped on the step to her bathroom and hit her on the door jam. Neck aches, but feels she is able to move her head OK since falling .Mild 'pain in my occipitals.' Called her personal vehicle advisor PCP, due to multiple comorbidities, fall, tachycardia, and fatigue was recommended to go to ER. Did bring antiviral since this is not available as inpatient. Cannot take paxlovid, has been prescribed molnupiravir instead Has a port, takes every other day 1L LR and 1x per week has ringers + 2g magnesium piggyback. Medical History: Reviewed Medications: Reviewed Surgical History: Reviewed Family history: Reviewed Allergies: Reviewed Social History: Reviewed Code Status: Full Principal Diagnosis COVID viral illness, acute transaminitis Discharge Exam General-alert and oriented x3, no fevers, no chills. Obese HEENT-head atraumatic and normocephalic, pupils equal and reactive to light, extraocular muscles intact Neck-no lymphadenopathy or thyromegaly, trachea midline Chest-clear to auscultation percussion. No rales wheezing or rhonchi Cardiac-regular rate and rhythm, normal S1 and S2 Abdomen-normal bowel sounds, nontender, no hepatosplenomegaly Extremities-no cyanosis, clubbing, or edema Neuro-cranial nerves II through XII intact, motor and sensory function within normal limits, strength symmetrical , no focal deficits Psych-normal affect, normal mood Discharge Data Allergies Allergy/AdvReac Type Severity Reaction Status Date / Time peanut Allergy Severe Anaphylaxis Verified 03/30/23 19:48 adhesive Allergy Intermediate SKIN Verified 03/30/23 19:48 IRRITATION WITH TAPES gabapentin Allergy Intermediate TONGUE Verified 03/30/23 19:48 SWELLING, RASH chlorhexidine Allergy Mild RASH WITH Verified 03/30/23 19:48 SCENTED ONLY latex Allergy Mild LIPS NUMB Verified 03/30/23 19:48 BLOWING UP A BALLOON nickel Allergy Mild Rash Verified 03/30/23 19:48 banana Allergy Verified 03/31/23 15:43 cantaloupe Allergy Verified 03/31/23 15:43 casein Allergy Unknown Verified 03/30/23 19:48 COVID-19 vaccine, mRNA, Allergy HIVES, Verified 03/30/23 19:48 [id number], L BIVALENT PFIZER VACCINE honeydew Allergy Verified 03/31/23 15:43 iodine Allergy blisters Verified 03/30/23 19:48 on contact area kiwi Allergy Verified 03/31/23 15:43 Milk Containing Products Allergy Verified 03/31/23 15:43 (Dairy) shellfish derived Allergy mouth Verified 03/30/23 19:48 blisters; "bad" gi upset apple AdvReac Mild Gastrointestinal Verified 03/30/23 19:48 Upset burton AdvReac Mild Gastrointestinal Verified 03/30/23 19:48 Upset corn AdvReac Mild Gastrointestinal Verified 03/30/23 19:48 Upset melon AdvReac Mild Gastrointestinal Verified 03/30/23 19:48 Upset soy AdvReac Mild Gastrointestinal Verified 03/30/23 19:48 Upset tomato AdvReac Mild Gastrointestinal Verified 03/30/23 19:48 Upset tree nut AdvReac Mild Gastrointestinal Verified 03/30/23 19:48 Upset wheat AdvReac Mild Gastrointestinal Verified 03/30/23 19:48 Upset DISOLVEABE SUTURES Allergy Intermediate BODY WILL Uncoded 03/30/23 19:48 REJECT SUTURES SKIN PREP Allergy Intermediate Hives Uncoded 03/30/23 19:48 Consultations 03/30/23 18:16 ED Decision to Admit Stat Ordered Studies 03/30/23 18:48 CT cervical spine wo con Stat 03/31/23 10:39 US gallbladder Urgent 03/31/23 17:43 US venous doppler LE BI Routine 04/01/23 17:59 MR brain wo con Routine MR knee RT wo con Routine Hospital Course (1) COVID: Minimal viral symptoms. No hypoxia. She states she already takes vitamin D. She is stable for discharge to home in this respect. (2) Acute hepatitis: Liver enzymes are trending down. This appears to be an acute transaminitis due to viral illness. Her liver enzymes will eventually normalize. No intervention needed at this time. (3) Weakness: Due to acute viral illness. Mild. This should resolve (4) Gisele-Danlos syndrome: Supportive care. No intervention necessary at this time. (5) GERD (gastroesophageal reflux disease): Stable. 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 Continue thyroid replacement therapy (7) Chronic narcotic dependence: Stable. No intervention necessary at this time. Medications remain the same . She states that Toradol has helped her discomfort and this will be continued (8) Dysautonomia orthostatic hypotension syndrome: COVID can cause POTS and can exacerbate pre-existing POTS. Midodrine has been restarted. (9) Hypomagnesemia: Corrected (10) Obesity, morbid, BMI 40.0-49.9: BMI 43. Significant weight loss recommended (11) Edema: Due to morbid obesity. Venous Doppler studies negative for DVT. (12) Asthma: Stable. Continue current medical management Plan Home todayApril 02 Total Time Total Time Spent Total Time Spent (In Minutes): 45 minutes Discharge Plan Discharge Items Patient Disposition: Home - Self-Care Reason For Visit: WEAKNESS, COVID, HYPOMAG Discharge Diagnosis: COVID viral syndrome, viral transaminitis Condition on Discharge: Good Activity: Resume your previous activity Non-emergency contact: Primary Care Provider Call non-emergency contact if: you have any medication questions and your symptoms worsen Follow-up/Referrals: Vero Bhandari MD [Primary Care Provider] - 04/11/23 3:00 pm Diet: Regular Addtl Attending Provider Instructions: Midodrine should be taken 3 times a day on a scheduled basis for blood pressure support Pending Studies at Discharge: No Stand-Alone Forms: My [facility], Work/School Release, Smoking Cessation Medications and DC Order Prescriptions: New midodrine 5 mg tablet 5 mg PO TID Qty: 90 0RF Rx Instructions: do not give last dose of day after 6PM or within 4 hrs of bedtime guaifenesin [Mucinex] 600 mg Tablet Extended Release 12hr 1,200 mg PO Q12 Qty: 20 0RF Continued metformin 500 mg tablet extended release 24 hr 1,000 mg PO BID Qty: 360 3RF (DME) IV admin extension set 60 " infusion set See Rx Instructions .Route Rx Instructions: USE ONCE EVERY OTHER DAY DIRECTED WITH SALINE INFUSION. (DME) IV admin extension set Infusion Set See Rx Instructions .Route Qty: 1 8RF Rx Instructions: IV admin extension set 60". Use once every other day as directed with saline infusion Xolair 150 mg/mL syringe 300 mg subcut .COMPLEX Qty: 4 11RF Rx Instructions: INJECT 300 mg subcutaneously EVERY 2 WEEKS. PT TO SELF ADMINISTER AT HOME APPROVED GOOD 10/07/22-10/08/23 PA# [id number] tizanidine 2 mg tablet 2 mg PO HS PRN (Reason: muscle spasticity) Qty: 90 3RF naloxone [Narcan] 4 mg/actuation spray,non-aerosol 4 mg intranasal Q2M PRN (Reason: opioid overdose) Qty: 2 0RF Rx Instructions: spray 1 dose into ONE nostril; alternate nostrils w each dose until help arrives lemborexant 5 mg tablet 5 mg PO HS Qty: 30 0RF oxycodone 5 mg tablet 5 mg PO DAILY PRN (Reason: Breakthrough Pain) Qty: 5 0RF ascorbic acid (vitamin C) 1,000 mg tablet 1 g PO BID ondansetron 8 mg tablet,disintegrating 8 mg PO Q8H PRN (Reason: nausea and vomiting) Qty: 90 3RF Kyleena 17.5 mcg/24 hrs (5 yrs) 19.5 mg intrauterine device 1 device intrauterine CONT Rx Instructions: PT STATES THAT SHE HAS BOTH KYLEENA AND NUVARING- PLEASE DO NOT REMOVE levothyroxine [Tirosint] 125 mcg capsule 125 mcg PO DAILY Qty: 90 2RF olopatadine [Patanase] 0.6 % spray,non-aerosol 2 spray intranasal BID Qty: 30.5 11RF Rx Instructions: administer into each nostril epinephrine [EpiPen 2-Marlo] 0.3 mg/0.3 mL auto-injector 0.3 mg IM Q4H PRN (Reason: anaphylaxis) Qty: 2 3RF celecoxib 200 mg capsule 200 mg PO DAILY Qty: 90 3RF molnupiravir 200 mg capsule 800 mg PO Q12H 5 Days Qty: 40 0RF loratadine [Claritin] 10 mg tablet 10 mg PO BID cyclobenzaprine 10 mg tablet 20 mg PO QAM Qty: 180 3RF spironolactone 50 mg tablet 50 mg PO DAILY Qty: 90 0RF hydrocodone bitartrate 30 mg tablet,oral only,ext.rel.24 hr 30 mg PO DAILY Qty: 30 0RF colesevelam [WelChol] 625 mg tablet 1,250 mg PO BID Qty: 120 5RF magnesium oxide 400 mg magnesium tablet 400 mg PO BID etonogestrel-ethinyl estradiol [EluRyng] 0.12-0.015 mg/24 hr ring 1 vag ring VAGINAL MONTHLY Rx Instructions: Friday OF liothyronine [Cytomel] 5 mcg tablet 5 mcg PO Q2D ketorolac 30 mg/mL syringe 30 mg IM UD PRN (Reason: Migraine Headache) Rx Instructions: once weekly as needed Nurtec ODT 75 mg tablet,disintegrating 75 mg PO UD Rx Instructions: 75 mg PO Take one tablet once a day as needed for migraine, max one dose per 24 hours, limit dosing to 2-3 times per week; Low Dose Naltrexone 4.5 mg PO HS hydroxyzine HCl 25 mg tablet 25 mg PO TID PRN (Reason: Allergy) Patient Comments: takes 2 tablets every night Rx Instructions: PO; 1-3 tablets qhs as needed for hives or allergic reactions; ergocalciferol (vitamin D2) 1,250 mcg (50,000 unit) capsule 1,250 mcg PO WK Rx Instructions: sundays alprazolam 1 mg tablet,disintegrating 1 mg PO AMHS alprazolam 1 mg tablet,disintegrating 1 mg PO DAILY PRN (Reason: Anxiety) melatonin 10 mg Tablet 10 mg PO HS Magnesium Sulfate In Lac Ring 2 g IV DIRECTED Rx Instructions: Weekly, over 1 hour esomeprazole magnesium 40 mg capsule,delayed release(DR/EC) 40 mg PO BID Rx Instructions: TAKE 1 CAPSULE BY MOUTH TWICE A DAY Mounjaro 5 mg/0.5 mL pen injector 5 mg subcut .WEEKLY/HOLD Rx Instructions: HOLD amoxicillin 500 mg tablet 2,000 mg PO ONCE PRN (Reason: Other) Rx Instructions: Take 4 tablets 1 hour before dental procedure montelukast [Singulair] 10 mg Tablet 10 mg PO QPM triamcinolone acetonide 0.1 % ointment 1 applic topical BID PRN (Reason: hives) pyridostigmine bromide 60 mg tablet 60 mg PO HS pyridostigmine bromide 60 mg tablet 60 mg PO BID Rx Instructions: AM& HS cyanocobalamin (vitamin B-12) 1,000 mcg/mL solution 1,000 mcg IM .EVERY 14 DAYS Rx Instructions: sundays lactated Ringers Parenteral Solution 1 ea IV .COMPLEX Rx Instructions: 1 ea intravenously QOD ; 1 liter Discontinued midodrine 5 mg tablet 5 mg PO TID PRN (Reason: tachycardia) Rx Instructions: do not give last dose of day after 6PM or within 4 hrs of bedtime Discharge Orders: Discharge Order (Routine); Ordered 04/02/23 Ordered By: Thompson Sousa Admission Data Admit Date/Time: 03/30/23 21:22 Attending Provider: Thompson Sousa Admit Provider: Nikita Ba Primary Care Provider: Vero Bhandari Other Providers: Nikita Ba Coding Level of Care Code 42252 INP/OBS DISCH >30 MIN Diagnoses COVID U07.1 Acute hepatitis B17.9 Weakness R53.1 Gisele-Danlos syndrome Q79.60 GERD (gastroesophageal reflux disease) K21.9 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
== END 2023-04-02 15:56 | disposition home or self-care (01) | DRG 178 ==
LOC: ED 14:58 → SUATTDRO 21:22 → EDINP 21:22 → 2W 22:43

== ENCOUNTER 2024-01-08 15:13 | Inpatient (IN) ==
--- NOTE | 2024-01-08 15:17 | ED Triage Note ---
Date of Service January 08, 2024 Provider in Triage Author: Gordon Hanson History of Present Illness This patient was briefly evaluated while in triage. An abbreviated physical exam was performed. This patient is a 38-year-old Female who presents to the ED for evaluation bilateral lower extremity edema x 2 days, leg cramping no SOB using diuretics without relief hx of POTS, EDS just at [facility] for magnesium infusion Physical Exam GENERAL: NAD, ambulatory into triage with a cane CARDIOVASCULAR: RRR RESPIRATORY: CTA EXT: BLE pitting edema 2+ Initial orders for labs and / or imaging were placed and patient was placed in the waiting area until a bed is available. Please see further documentation for the full ED course.
[2024-01-08 15:58] LABS: Basophils # (auto) 0.04 K/uL (0.00-0.20); Basophils % (auto) 0.4 %; Eosinophils # (auto) 0.34 K/uL (0.00-0.50); Eosinophils % (auto) 3.7 %; Hematocrit (blood only) 39.2 % (37.0-47.0); Hemoglobin 12.7 g/dl (12.0-16.0); Immature Granulocytes # (auto) 0.03 K/uL (0.01-0.20); Immature Granulocytes % (auto) 0.3 %; Lymphocytes # (auto) 3.28 K/uL (1.20-3.40); Lymphocytes % (auto) 35.2 %; Mean Corpuscular Hemoglobin 30.8 pg (25.0-34.0); Mean Corpuscular Hgb Conc 32.4 g/dL (32.0-36.0); Mean Corpuscular Volume 95.1 fL (80.0-100.0); Mean Platelet Volume 9.2 fL (9.4-12.4); Monocytes # (auto) 0.49 K/uL (0.11-0.59); Monocytes % (auto) 5.3 %; Neutrophils # (auto) 5.13 K/uL (1.40-6.50); Neutrophils % (auto) 55.1 %; Platelet Count 310 K/uL (130-400); RDW Standard Deviation 48.1 fL (36.4-46.3); Red Blood Count 4.12 M/uL (4.20-5.40); White Blood Count 9.31 K/ul (4.8-10.8)
[2024-01-08 16:10] LABS: Albumin Globulin Ratio 1.2 (0.9-2); Albumin Level 3.9 gm/dl (3.4-5.0); BUN Creatinine Ratio 11.3 (10-20); Bilirubin,Total 0.3 mg/dl (0.2-1.0); Calcium 8.8 mg/dl (8.6-10.3); Creatinine Clr Calc Pharmacy 74.2 ml/min; Est GFR (African American) 54.9 ml/min; Est GFR (Non-African American) 47.4 ml/min; Globulin 3.2 gm/dl (2.5-4.0); Magnesium 2.5 mg/dl (1.7-2.4); Potassium 3.9 mmol/L (3.5-5.1); Total Protein 7.1 gm/dl (6.0-8.3)
[2024-01-08 16:16] LABS: Troponin I High Sensitivity 2.6 pg/ml (0-14)
[2024-01-08 16:19] LABS: INR 0.9 (0.9-1.1); Partial Thromboplastin Time 28 Seconds (21-31); Prothrombin Time 9.6 Seconds (9.0-12.0)
--- NOTE | 2024-01-08 17:53 | Electrocardiogram Report ---
Test Reason : Blood Pressure : / mmHG Vent. Rate : 090 BPM Atrial Rate : 090 BPM P-R Int : 136 ms QRS Dur : 080 ms QT Int : 360 ms P-R-T Axes : 053 038 044 degrees QTc Int : 440 ms Normal sinus rhythm Normal ECG When compared with ECG of 23-SEP-2023 13:34, No significant change was found Confirmed by Gabriel Reed ([id number]) on 01/08/2024 5:53:38 PM Referred By: Confirmed By:Jaylen Reed
[2024-01-08 17:57] LABS: Appearance Urine Clear (Clear); Bilirubin Urine Negative (Negative); Blood Urine Negative (Negative); Color Urine Yellow; Glucose Urine UA Negative (Negative); Ketones Urine Negative (Negative); Leukocyte Esterase Urine Negative (Negative); Nitrite Urine Negative (Negative); Protein Urine Negative (Negative); Specific Gravity Urine 1.011 (1.000-1.030); Urobilinogen Urine Negative (Negative); pH Urine 6.5 (4.5-7.5)
--- NOTE | 2024-01-08 18:16 | Ultrasound Report ---
BILATERAL LOWER EXTREMITY VENOUS DOPPLER HISTORY: Acute pain and swelling of the lower legs lower extremity edema COMPARISON STUDY: 09/23/2023 FINDINGS: There is normal compressibility, flow, and augmentation within the bilateral lower extremit y deep venous systems. IMPRESSION: No DVT within the right or left lower extremity. ACT 112: Negative or not required by law. Electronically signed by: Sarabjit Rojas M.D. 01/08/2024 6:15 PM
--- NOTE | 2024-01-08 18:31 | XRay Report ---
XR chest 2V PA/lateral HISTORY: 38 years-old Female lower extremity edema acute shortness of breath with possible pulmonary edema COMPARISON: CTA chest 09/23/2023 TECHNIQUE: PA and lateral views of the chest. FINDINGS: Right IJ Wjqyql-s-[id number] catheter noted with distal tip in the expected location of the upper SVC. Card iac silhouette is normal. Lungs are clear. No pneumothorax or pleural effusion. Cannulated screws pro ject over the left glenoid. IMPRESSION: No acute process, particularly there is no evidence of pulmonary edema. ACT 112: Negative or not required by law. The above report was generated using voice recognition software. It may contain grammatical, syntax o r spelling errors. Electronically signed by: Sarabjit Rojas M.D. 01/08/2024 6:29 PM
[2024-01-08] MEDS: MoRPHine SULFATE CR 15 MG TABCR PO SCH (21:08)
[2024-01-08] MEDS: FUROSEMIDE INJ 20 MG/2 ML VIAL IV ONE (21:08)
--- NOTE | 2024-01-08 21:18 | History & Physical Report ---
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 #LE Edema Likely mutlifactorial, more likely venous insufficiency in nature Not relieved by home diuretics Echo 07/19 EF 55-60% Labs WNL Will give one time 20mg lasix IV Cr elevated from baseline likely in setting of recent diuretic use - would avoid aggressive diuresis Routine consult to cardiology #POTS Has port in place for home and [facility] infusions Self administers LR infusions at home #Chronic Pain 2/2 Gisele Danlos diagnosis Has complex home pain regimen MS Contin 15mg BID Morphine IR 7.5mg BID PRN Meloxicam 7.5mg BID Flexeril 20mg qAM FENGI: regular - has many reported food allergies Code status: Full DVT prophylaxis: SCDs Isolation: none Disposition: medical History of Present Illness Primary Care Provider: Vero Bhandari MD 38 yo female with complex past medical history 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 For full review of past medical history and current coordination of care amongst multiple medical providers please refer to PCP note 12/23/23. Was sent to the ED by the [facility] after she had her scheduled magnesium infustion. States that her LE edema has been progressively worsening over the last several months to a year but more significant in the last few days. States that at home she takes benedryl and puts her legs up and this seems to help. Thinks that she is "third spacing" due to decreased PO intake. Labs drawn in [facility] were all WNL. VSS. At the time of admission, pt complains of back pain as she has missed her scheduled morphine dose today and of LE edema. No SOB, CP. Allergies Allergy/AdvReac Type Severity Reaction Status Date / Time banana Allergy Severe tongue Verified 01/08/24 10:55 numbness honeydew Allergy Severe tongue Verified 01/08/24 10:55 numbness iodine Allergy Severe blisters Verified 01/08/24 10:55 on contact area peanut Allergy Severe Anaphylaxis Verified 01/08/24 10:55 adhesive Allergy Intermediate SKIN Verified 01/08/24 10:55 IRRITATION WITH TAPES cantaloupe Allergy Intermediate tongue Verified 01/08/24 10:55 numbness COVID-19 vaccine, mRNA, Allergy Intermediate HIVES, Verified 01/08/24 10:55 [id number], L BIVALENT PFIZER VACCINE gabapentin Allergy Intermediate TONGUE Verified 01/08/24 10:55 SWELLING, RASH Milk Containing Products Allergy Intermediate blood in Verified 01/08/24 10:55 (Dairy) stool shellfish derived Allergy Intermediate mouth Verified 01/08/24 10:55 blisters; "bad" gi upset chlorhexidine Allergy Mild RASH WITH Verified 01/08/24 10:55 SCENTED ONLY latex Allergy Mild LIPS NUMB Verified 01/08/24 10:55 BLOWING UP A BALLOON nickel Allergy Mild Rash Verified 01/08/24 10:55 casein Allergy Unknown Unknown Verified 01/08/24 10:55 Sutures Allergy "DISSOLVEABLE" Verified 01/08/24 10:55 = body will reject apple AdvReac Mild Gastrointestinal Verified 01/08/24 10:55 Upset burton AdvReac Mild Gastrointestinal Verified 01/08/24 10:55 Upset carrot AdvReac Mild Gastrointestinal Verified 01/08/24 10:55 Upset corn AdvReac Mild Gastrointestinal Verified 01/08/24 10:55 Upset melon AdvReac Mild Gastrointestinal Verified 01/08/24 10:55 Upset soy AdvReac Mild Gastrointestinal Verified 01/08/24 10:55 Upset tomato AdvReac Mild Gastrointestinal Verified 01/08/24 10:55 Upset tree nut AdvReac Mild Gastrointestinal Verified 01/08/24 10:55 Upset wheat AdvReac Mild Gastrointestinal Verified 01/08/24 10:55 Upset Home Medications Medication Instructions Recorded Confirmed Type etonogestrel 0.12 mg-ethinyl 1 vag ring vaginal MONTHLY 02/04/21 01/08/24 History estradiol 0.015 mg/24 hr vaginal ring (EluRyng) loratadine 10 mg tablet (Claritin) 10 mg PO BID 02/06/21 01/08/24 History ascorbic acid (vitamin C) 1,000 mg 1 g PO BID 01/29/22 01/08/24 History tablet ondansetron 8 mg disintegrating 8 mg PO Q8H PRN nausea and 02/14/22 01/08/24 Rx tablet vomiting #90 tabs amoxicillin 500 mg tablet 2,000 mg PO ONCE PRN Other 02/26/22 01/08/24 History montelukast 10 mg tablet 10 mg PO QPM 03/05/22 01/08/24 History (Singulair) IV admin extension set 60" 06/12/22 01/08/24 History epinephrine 0.3 mg/0.3 mL 0.3 mg (0.3 mL) IM Q4H PRN 07/15/22 01/08/24 Rx injection, auto-injector (EpiPen anaphylaxis #2 ea 2-Marlo) olopatadine 0.6 % nasal spray 2 spray intranasal BID #30.5 grams 07/15/22 01/08/24 Rx (Patanase) IV admin extension set #1 ea 07/17/22 01/08/24 Rx liothyronine 5 mcg tablet (Cytomel) 5 mcg PO 3XWK 08/20/22 01/08/24 History rimegepant 75 mg disintegrating 75 mg PO UD PRN Migraine Headache 08/20/22 01/08/24 History tablet (Nurtec ODT) levonorgestrel 17.5 mcg/24 hr (up 1 device intrauterine CONT 11/15/22 01/08/24 History to 5 yrs) 19.5mg intrauterine device (Kyleena) cyanocobalamin (vitamin B-12) 1,000 mcg IM .EVERY 14 DAYS 12/10/22 01/08/24 History 1,000 mcg/mL injection solution naloxone 4 mg/actuation nasal 4 mg intranasal Q2M PRN opioid 01/03/23 01/08/24 Rx spray (Narcan) overdose #2 ea lactated Ringers 1 ea IV .COMPLEX 01/09/23 01/08/24 History cyclobenzaprine 10 mg tablet 20 mg (2 x 10 mg) PO QAM #180 tabs 03/21/23 01/08/24 Rx Magnesium Sulfate In Lac Ring 2 g IV DIRECTED 03/30/23 01/08/24 History melatonin 10 mg tablet 10 mg PO HS 03/30/23 01/08/24 History KETOTIFEN 2 mg PO BID 04/15/23 01/08/24 History Low Dose Naltrexone 4.5 mg PO BID 04/15/23 01/08/24 History carbidopa 25 mg-levodopa 100 mg 1 tab PO BID 04/15/23 01/08/24 History tablet cromolyn 100 mg/5 mL oral 200 mg PO QID 04/15/23 01/08/24 History concentrate alprazolam 2 mg disintegrating 2 mg PO TID PRN Anxiety 06/03/23 01/08/24 History tablet colesevelam 625 mg tablet (WelChol) 1,250 mg PO DAILY 06/03/23 01/08/24 History magnesium glycinate 480 mg PO HS 06/03/23 01/08/24 History torsemide 10 mg tablet 10 mg PO QAM PRN swelling #90 tabs 07/02/23 01/08/24 Rx meloxicam 7.5 mg tablet 7.5 mg PO BID #180 tabs 09/22/23 01/08/24 Rx famotidine 40 mg tablet 40 mg PO BID #180 tabs 09/25/23 01/08/24 Rx pyridostigmine bromide 60 mg tablet 60 mg PO BID #60 tabs 09/25/23 01/08/24 Rx esomeprazole magnesium 40 mg 40 mg PO BID #180 caps 10/21/23 01/08/24 Rx capsule,delayed release morphine 15 mg tablet,extended 15 mg PO BID #60 tabs 11/10/23 01/08/24 Rx release omalizumab 150 mg/mL subcutaneous 300 mg (2 mL) subcut .COMPLEX #4 mL 11/12/23 01/08/24 Rx syringe (Xolair) spironolactone 50 mg tablet 50 mg PO QAM #90 tabs 11/18/23 01/08/24 Rx hydroxyzine HCl 25 mg tablet See Rx Instructions .Route 11/24/23 01/08/24 Rx .COMPLEX #90 tabs Tirosint 125 mcg capsule 125 mcg PO DAILY #30 caps 12/08/23 01/08/24 Rx (levothyroxine) ergocalciferol (vitamin D2) 1,250 1,250 mcg PO WK #14 caps 12/30/23 01/08/24 Rx mcg (50,000 unit) capsule lemborexant 5 mg tablet 5 mg PO HS #30 tabs 01/05/24 01/08/24 Rx morphine 15 mg immediate release 7.5 mg (1/2 x 15 mg) PO BID PRN 01/05/24 01/08/24 Rx tablet severe breakthrough pain #3 tabs midodrine 5 mg tablet 5 mg PO TID Other 01/06/24 01/08/24 History tizanidine 2 mg tablet 2 mg PO HS muscle spasticity 01/06/24 01/08/24 History Past Med/Surg History Problem List Adrenal insufficiency Bilateral edema of lower extremity (Acute) POTS (postural orthostatic tachycardia syndrome) No recent syncope- keeps controlled with high Na diet, magnesium and water intake>FOLLOWED BY DR. GOODE - Gets routine IV influsions via port Osteoarthritis of right patellofemoral joint Obesity (BMI 30-39.9) Fatigue (Acute) Recurrent right knee instability History of arthroscopy of right knee Chronic venous insufficiency follows with Cardiology; per 03/2023 note, likely multifactorial; recommending more routine use of compression stockings Chronic diarrhea follows with GI Migraine without aura, not intractable, without status migrainosus Morbid obesity Right knee pain Cramps of lower extremity (Acute) Hypothyroidism GERD (gastroesophageal reflux disease) Atlantoaxial instability Shoulder joint instability Cervical spine instability Gisele-Danlos syndrome (Acute) Instability of left shoulder joint Lipedema Median arcuate ligament syndrome Elevated serum creatinine Insomnia secondary to chronic pain Hypomagnesemia (Acute) Iron deficiency Vitamin B12 deficiency Edema Osteogenesis imperfecta Urticaria Lymphocytic colitis Esophageal dysphagia Patellar instability of both knees Obesity, morbid, BMI 40.0-49.9 Gastroparesis follows with GI Chronic pain (Acute) Anxiety and depression Dercum's disease Mast cell activation syndrome Port-A-Cath in place per patient>power port Medical History (Updated 01/10/24 @ 17:23 by Loretta Franklin MD) Chandra disease COVID-19 ED visit 03/30/2023 with COVID sx and positive home test. Admitted 03/30-04/02/23. f/u with PCP 04/07/23 and pt instructed to return to ED 2/2 RLL crackles. Imaging did not show acute PNA. she was tx for UTI. All COVID sx have since resolved. Chronic narcotic dependence follows with Palliative doctor, Dr. Omalley, for pain control. 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 Kadi YOON specialist Surgical History History of esophagogastroduodenoscopy (EGD) History of removal of retained hardware History of foot surgery History of mandibular surgery History of colonoscopy History of anesthesia reaction History of laparoscopy Hx of shoulder surgery History of hip surgery History of ankle surgery H/O knee surgery Family History Family/Other Family history of esophageal cancer Father Melanoma Lewy body dementia Cancer Mother Diabetes Hypertension Grandmother (Paternal) Breast cancer Cancer Grandfather (Maternal) Cancer Grandfather (Paternal) Cancer Heart disease Uncle Colorectal cancer Other No family history of adverse response to anesthesia Denies family history of Ovarian cancer Prostate cancer Myocardial infarction Social History Smoking Status: Never smoker Tobacco Type: E-cigarettes / Vaping Cigarettes Per Day: tobacco free e cigarettes/vaping>; Second Hand Exposure: No; Do You Dip or Chew Tobacco: No; Hx Alcohol Use: No Hx Substance Use: No Preferred Language: Bengali Communication Ability: Effective Visual Impairment: No Limitations Hearing Ability: Normal Nut Sorter Operator Required: No Beliefs That Will Affect Care: None marital status: Single Current Living Situation: Alone current occupational status: employed 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 during the past year weight has: increased > 10 lbs Dental Care, Regularly: Yes Physical Activity Frequency: Does not Exercise Seatbelt Use: always Sunscreen Use: Yes Assistive Devices: Cane, Walker and Wheelchair Review of Systems Review of Systems: reviewed, per HPI Physical Exam Physical Exam: Constitutional: well-appearing, no acute distress HEENT: NCAT CV: extremities well-perfused, +2 pitting edema b/l LE Resp: no increased work of breathing MSK: no gross deformities appreciated Skin: warm, dry, no rash appreciated Neuro: alert, oriented, no focal neurologic deficit appreciated Results & Data Results & Data Vital Signs (Past 12 Hours) Vital Signs Temp Pulse Pulse Resp BP BP Pulse Ox 01/08/24 20:04 88 01/08/24 19:08 85 18 131/78 97 01/08/24 15:14 36.0 C L 86 20 145/83 H 100 O2 Del Method 01/08/24 20:04 01/08/24 19:08 Room Air 01/08/24 15:14 Room Air Code Status & VTE Plan VTE Prophylaxis Plan VTE Prophylaxis will be ordered: Yes Supervising Physician Co-Signing Physician Notes Attending addendum: I have physically seen this patient, have supervised the medical residents activities, and agree with the H&P unless as otherwise noted. Assessment and Plan: Lower extremity edema/chronic venous insufficiency/chronic lymphedema- Patient reports that she has had worsening lower extremity edema over the past 3 days despite use of torsemide and spironolactone as directed Most recent echo on 07/19 with ejection fraction 55-60% Give a trial of Lasix 20 mg IV this evening, and further dosing will be based on response POTS- Patient has not patient regimen for [facility] infusions and LR infusions at home Chronic pain syndrome- Attributable to Gisele-Danlos Continue MS Contin 15 mg p.o. twice daily, with IR 7.5 mg p.o. twice daily as needed Continue can add Flexeril as noted Medication review- Reviewed with the patient personally by me Continue medications as noted Resident Activity Tracking Resident Involvement: Resident Care Provided Care Provided: Adult [facility]
--- NOTE | 2024-01-08 23:14 | Emergency Department Note ---
Impression & Plan Bilateral edema of lower extremity, Cramps of lower extremity, Fatigue ED Provider Note NAME: TANMAY IYER AGE: 38 SEX: F : 1985 ARRIVES VIA: Walk-In INFORMANT: Patient, ED PROVIDER(S): Car Madrigal MD CHIEF COMPLAINT: Lower extremity edema HPI: This is a 38-year-old female with extensive complex medical history including POTS, Gisele-Danlos for bilateral lower extremity edema. Patient was at her [facility] appointment for magnesium transfusion. As per the patient, the [facility] staff there encouraged her to seek care inside the hospital for medical treatment of all of her illness. Patient self was resistant to this idea. structural steel worker, Sherrie, came and spoke with her and encouraged her to come to the ER for evaluation. Patient states that she has only 1 admission previously in the past. She has had multiple outpatient providers, specialists, referrals and procedures to help find cause of her pain. She is in chronic pain otherwise. She notes slight swelling to her bilateral lower extremities, right worse than left. She is concerned about May Thurner's disease. Otherwise she was given diuretics by her regional otr company driver for the swelling. ROS: See above HPI for pertinent positives & negatives. A total of 10 systems reviewed and were otherwise negative. PHYSICAL EXAMINATION: General: resting comfortably in no acute distress Head: Normocephalic and atraumatic Eyes: Normal inspection, extraocular muscles intact Ear, nose, throat: Normal external exam Neck: Normal range of motion Respiratory: lungs clear to auscultation bilaterally Cardiovascular: Regular rate/rhythm, no murmur GI: soft, nontender, no guarding or rebound Extremities: 1+ pitting edema to bilateral lower extremities Neuro: The patient awake and alert, appropriately conversive, no focal deficits, symmetric faces Skin: Warm, dry, and intact MEDICAL DECISION MAKING: This is a 38-year-old female presents for lower extremity edema. Patient does have 1+ pitting edema, not controlled in the outpatient setting. Patient unsure whether she would like inpatient admission versus discharge. She is encouraged by [facility] staff and social director to seek care in the emergency department/inpatient [facility]imes. She has reassuring blood work, EKG at this time. Patient expresses dissatisfaction with her outpatient providers for lack of clear answers/resolution of symptoms. -ECG independently interpreted by me with normal sinus rhythm, rate of 90, normal axis, normal FL, normal QRS, normal QTc, no ST segment elevations consistent with STEMI criteria -Will admit patient for her bilateral thumb edema as well as chronic pain. Differential diagnosis: CHF, anasarca, bilateral extremity edema, muscle spasm Past Med/Surg History Problem List Bilateral edema of lower extremity (Acute) POTS (postural orthostatic tachycardia syndrome) No recent syncope- keeps controlled with high Na diet, magnesium and water intake>FOLLOWED BY DR. GOODE - Gets routine IV influsions via port Osteoarthritis of right patellofemoral joint Obesity (BMI 30-39.9) Fatigue (Acute) Recurrent right knee instability History of arthroscopy of right knee Chronic venous insufficiency follows with Cardiology; per 03/2023 note, likely multifactorial; recommending more routine use of compression stockings Chronic diarrhea follows with GI Migraine without aura, not intractable, without status migrainosus Morbid obesity Right knee pain Cramps of lower extremity (Acute) Hypothyroidism GERD (gastroesophageal reflux disease) Atlantoaxial instability Shoulder joint instability Cervical spine instability 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 Admitted 03/30-04/02/23. f/u with PCP 04/07/23 and pt instructed to return to ED 2/2 RLL crackles. Imaging did not show acute PNA. she was tx for UTI. All COVID sx have since resolved. Chronic narcotic dependence follows with Palliative doctor, Dr. Omalley, for pain control. 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 Wallis EDS specialist Surgical History History of esophagogastroduodenoscopy (EGD) History of removal of retained hardware History of foot surgery History of mandibular surgery History of colonoscopy History of anesthesia reaction History of laparoscopy Hx of shoulder surgery History of hip surgery History of ankle surgery H/O knee surgery Family History Family/Other Family history of esophageal cancer Father Melanoma Lewy body dementia Cancer Mother Diabetes Hypertension Grandmother (Paternal) Breast cancer Cancer Grandfather (Maternal) Cancer Grandfather (Paternal) Cancer Heart disease Uncle Colorectal cancer Other No family history of adverse response to anesthesia Denies family history of Ovarian cancer Prostate cancer Myocardial infarction Social History Smoking Status: Never smoker Tobacco Type: E-cigarettes / Vaping Cigarettes Per Day: tobacco free e cigarettes/vaping>; Second Hand Exposure: No; Do You Dip or Chew Tobacco: No; Hx Alcohol Use: No Hx Substance Use: No Preferred Language: Japanese Communication Ability: Effective Visual Impairment: No Limitations Hearing Ability: Normal Money Order Clerk Required: No Beliefs That Will Affect Care: None marital status: Single Current Living Situation: Alone current occupational status: employed 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 during the past year weight has: increased > 10 lbs Dental Care, Regularly: Yes Physical Activity Frequency: Does not Exercise Seatbelt Use: always Sunscreen Use: Yes Assistive Devices: Cane, Walker and Wheelchair Allergies Allergies Allergy/AdvReac Type Severity Reaction Status Date / Time banana Allergy Severe tongue Verified 01/08/24 10:55 numbness honeydew Allergy Severe tongue Verified 01/08/24 10:55 numbness iodine Allergy Severe blisters Verified 01/08/24 10:55 on contact area peanut Allergy Severe Anaphylaxis Verified 01/08/24 10:55 adhesive Allergy Intermediate SKIN Verified 01/08/24 10:55 IRRITATION WITH TAPES cantaloupe Allergy Intermediate tongue Verified 01/08/24 10:55 numbness COVID-19 vaccine, mRNA, Allergy Intermediate HIVES, Verified 01/08/24 10:55 [id number], L BIVALENT PFIZER VACCINE gabapentin Allergy Intermediate TONGUE Verified 01/08/24 10:55 SWELLING, RASH Milk Containing Products Allergy Intermediate blood in Verified 01/08/24 10:55 (Dairy) stool shellfish derived Allergy Intermediate mouth Verified 01/08/24 10:55 blisters; "bad" gi upset chlorhexidine Allergy Mild RASH WITH Verified 01/08/24 10:55 SCENTED ONLY latex Allergy Mild LIPS NUMB Verified 01/08/24 10:55 BLOWING UP A BALLOON nickel Allergy Mild Rash Verified 01/08/24 10:55 casein Allergy Unknown Unknown Verified 01/08/24 10:55 Sutures Allergy "DISSOLVEABLE" Verified 01/08/24 10:55 = body will reject apple AdvReac Mild Gastrointestinal Verified 01/08/24 10:55 Upset burton AdvReac Mild Gastrointestinal Verified 01/08/24 10:55 Upset carrot AdvReac Mild Gastrointestinal Verified 01/08/24 10:55 Upset corn AdvReac Mild Gastrointestinal Verified 01/08/24 10:55 Upset melon AdvReac Mild Gastrointestinal Verified 01/08/24 10:55 Upset soy AdvReac Mild Gastrointestinal Verified 01/08/24 10:55 Upset tomato AdvReac Mild Gastrointestinal Verified 01/08/24 10:55 Upset tree nut AdvReac Mild Gastrointestinal Verified 01/08/24 10:55 Upset wheat AdvReac Mild Gastrointestinal Verified 01/08/24 10:55 Upset Home Meds Home Medications Medication Instructions Recorded Confirmed etonogestrel 0.12 mg-ethinyl 1 vag ring vaginal MONTHLY 02/04/21 01/08/24 estradiol 0.015 mg/24 hr vaginal ring (EluRyng) loratadine 10 mg tablet (Claritin) 10 mg PO BID 02/06/21 01/08/24 ascorbic acid (vitamin C) 1,000 mg 1 g PO BID 01/29/22 01/08/24 tablet amoxicillin 500 mg tablet 2,000 mg PO ONCE PRN Other 02/26/22 01/08/24 montelukast 10 mg tablet 10 mg PO QPM 03/05/22 01/08/24 (Singulair) IV admin extension set 60" 06/12/22 01/08/24 liothyronine 5 mcg tablet (Cytomel) 5 mcg PO 3XWK 08/20/22 01/08/24 rimegepant 75 mg disintegrating 75 mg PO UD PRN Migraine Headache 08/20/22 01/08/24 tablet (Nurtec ODT) levonorgestrel 17.5 mcg/24 hr (up 1 device intrauterine CONT 11/15/22 01/08/24 to 5 yrs) 19.5mg intrauterine device (Kyleena) cyanocobalamin (vitamin B-12) 1,000 mcg IM .EVERY 14 DAYS 12/10/22 01/08/24 1,000 mcg/mL injection solution lactated Ringers 1 ea IV .COMPLEX 01/09/23 01/08/24 Magnesium Sulfate In Lac Ring 2 g IV DIRECTED 03/30/23 01/08/24 melatonin 10 mg tablet 10 mg PO HS 03/30/23 01/08/24 KETOTIFEN 2 mg PO BID 04/15/23 01/08/24 Low Dose Naltrexone 4.5 mg PO BID 04/15/23 01/08/24 carbidopa 25 mg-levodopa 100 mg 1 tab PO BID 04/15/23 01/08/24 tablet cromolyn 100 mg/5 mL oral 200 mg PO QID 04/15/23 01/08/24 concentrate alprazolam 2 mg disintegrating 2 mg PO TID PRN Anxiety 06/03/23 01/08/24 tablet colesevelam 625 mg tablet (WelChol) 1,250 mg PO DAILY 06/03/23 01/08/24 magnesium glycinate 480 mg PO HS 06/03/23 01/08/24 midodrine 5 mg tablet 5 mg PO TID Other 01/06/24 01/08/24 tizanidine 2 mg tablet 2 mg PO HS muscle spasticity 01/06/24 01/08/24 Previous Rx's Medication Instructions Recorded ondansetron 8 mg disintegrating 8 mg PO Q8H PRN nausea and 02/14/22 tablet vomiting #90 tabs epinephrine 0.3 mg/0.3 mL 0.3 mg (0.3 mL) IM Q4H PRN 07/15/22 injection, auto-injector (EpiPen anaphylaxis #2 ea 2-Marlo) olopatadine 0.6 % nasal spray 2 spray intranasal BID #30.5 grams 07/15/22 (Patanase) IV admin extension set #1 ea 07/17/22 naloxone 4 mg/actuation nasal 4 mg intranasal Q2M PRN opioid 01/03/23 spray (Narcan) overdose #2 ea cyclobenzaprine 10 mg tablet 20 mg (2 x 10 mg) PO QAM #180 tabs 03/21/23 torsemide 10 mg tablet 10 mg PO QAM PRN swelling #90 tabs 07/02/23 meloxicam 7.5 mg tablet 7.5 mg PO BID #180 tabs 09/22/23 famotidine 40 mg tablet 40 mg PO BID #180 tabs 09/25/23 pyridostigmine bromide 60 mg tablet 60 mg PO BID #60 tabs 09/25/23 esomeprazole magnesium 40 mg 40 mg PO BID #180 caps 10/21/23 capsule,delayed release morphine 15 mg tablet,extended 15 mg PO BID #60 tabs 11/10/23 release omalizumab 150 mg/mL subcutaneous 300 mg (2 mL) subcut .COMPLEX #4 mL 11/12/23 syringe (Xolair) spironolactone 50 mg tablet 50 mg PO QAM #90 tabs 11/18/23 hydroxyzine HCl 25 mg tablet See Rx Instructions .Route 11/24/23 .COMPLEX #90 tabs Tirosint 125 mcg capsule 125 mcg PO DAILY #30 caps 12/08/23 (levothyroxine) ergocalciferol (vitamin D2) 1,250 1,250 mcg PO WK #14 caps 12/30/23 mcg (50,000 unit) capsule lemborexant 5 mg tablet 5 mg PO HS #30 tabs 01/05/24 morphine 15 mg immediate release 7.5 mg (1/2 x 15 mg) PO BID PRN 01/05/24 tablet severe breakthrough pain #3 tabs Results & Data (ED) Vital Signs Vital Signs - 24 hr 01/08/24 15:14 01/08/24 19:08 01/08/24 20:04 Temperature 36.0 C L Temperature Source Temporal Artery Scan Pulse Rate 86 88 Pulse Rate [Finger] 85 Respiratory Rate 20 18 Respiratory Effort / Characteristics Non-Labored Spontaneous Non-Labored Spontaneous Respiratory Depth Normal Normal Blood Pressure 145/83 H Blood Pressure [Right Arm] 131/78 Blood Pressure Mean 103 Blood Pressure Mean [Right Arm] 95 Pulse Oximetry 100 97 Oxygen Delivery Method Room Air Room Air Sepsis Recent Fever Within 48 Hours No Sepsis New/Unexplained Change in Mental Status No Sepsis Action Taken by Nursing No Action Required Laboratory Data 01/08/24 15:20 01/08/24 15:20 Lab Results 01/08/24 01/08/24 Range/Units 15:20 17:23 WBC 9.31 (4.8-10.8) K/ul RBC 4.12 L (4.20-5.40) M/uL Hgb 12.7 (12.0-16.0) g/dl Hct 39.2 (37.0-47.0) % MCV 95.1 (80.0-100.0) fL MCH 30.8 (25.0-34.0) pg MCHC 32.4 (32.0-36.0) g/dL RDW Std Deviation 48.1 H (36.4-46.3) fL RDW Coeff of Reynold 14.0 (11.5-14.5) % Plt Count 310 (130-400) K/uL MPV 9.2 L (9.4-12.4) fL Immature Gran % (Auto) 0.3 % Neut % (Auto) 55.1 % Lymph % (Auto) 35.2 % Barnes % (Auto) 5.3 % Eos % (Auto) 3.7 % Baso % (Auto) 0.4 % Neut # (Auto) 5.13 (1.40-6.50) K/uL Lymph # (Auto) 3.28 (1.20-3.40) K/uL Barnes # (Auto) 0.49 (0.11-0.59) K/uL Eos # (Auto) 0.34 (0.00-0.50) K/uL Baso # (Auto) 0.04 (0.00-0.20) K/uL Immature Gran # (Auto) 0.03 (0.01-0.20) K/uL PT 9.6 (9.0-12.0) Seconds INR 0.9 (0.9-1.1) APTT 28 (21-31) Seconds PTT Ratio 1.0 Sodium 137 (136-145) mmol/L Potassium 3.9 (3.5-5.1) mmol/L Chloride 106 (98-107) mmol/L Carbon Dioxide 23 (21-32) mmol/L Anion Gap 8 (3-11) BUN 16 (6-23) mg/dl Creatinine 1.42 H (0.6-1.2) mg/dl Est Cr Clr Drug Dosing 74.2 ml/min Est GFR ( Amer) 54.9 ml/min Est GFR (Non-Af Amer) 47.4 ml/min BUN/Creatinine Ratio 11.3 (10-20) Glucose 91 (70-99(Fasting)) mg/dl Calcium 8.8 (8.6-10.3) mg/dl Magnesium 2.5 H (1.7-2.4) mg/dl Total Bilirubin 0.3 (0.2-1.0) mg/dl AST 49 H (13-39) U/L ALT 14 (7-52) U/L Alkaline Phosphatase 82 (34-104) U/L Troponin I High Sens 2.6 (0-14) pg/ml B-Natriuretic Peptide 19 (0-100) pg/ml Total Protein 7.1 (6.0-8.3) gm/dl Albumin 3.9 (3.4-5.0) gm/dl Globulin 3.2 (2.5-4.0) gm/dl Albumin/Globulin Ratio 1.2 (0.9-2) Urine Color Yellow Urine Appearance Clear (Clear) Urine pH 6.5 (4.5-7.5) Ur Specific Court[place]ay 1.011 (1.000-1.030) Urine Protein Negative (Negative) Urine Glucose (UA) Negative (Negative) Urine Ketones Negative (Negative) Urine Blood Negative (Negative) Urine Nitrite Negative (Negative) Urine Bilirubin Negative (Negative) Urine Urobilinogen Negative (Negative) Ur Leukocyte Esterase Negative (Negative) Administered Medications Alprazolam (Alprazolam 0.5 Mg Tablet) 2 mg PO TID PRN PRN Reason: Anxiety Stop: 02/08/24 08:59 Last Admin: 01/09/24 09:47 Dose: 2 mg Documented By: FELICE Ascorbic Acid (Ascorbic Acid 500 Mg Tab) 1,000 mg PO BID BUZZ Stop: 02/08/24 08:59 Last Admin: 01/09/24 09:30 Dose: 1,000 mg Documented By: FELICE Carbidopa/Levodopa (Carbidopa/Levodopa 25/100mg Tab) 1 tab PO BID BUZZ Stop: 02/08/24 00:44 Last Admin: 01/09/24 09:30 Dose: 1 tab Documented By: Admin: 01/09/24 01:15 Dose: 1 tab Documented By: CYNTHIA Cyclobenzaprine HCl (Cyclobenzaprine Hcl 10 Mg Tab) 20 mg PO QAM [facility] Stop: 02/08/24 08:59 Last Admin: 01/09/24 09:31 Dose: 20 mg Documented By: FELICE Famotidine (Famotidine 40 Mg Tablet) 40 mg PO BID BUZZ Stop: 02/08/24 00:44 Last Admin: 01/09/24 09:32 Dose: 40 mg Documented By: Admin: 01/09/24 01:15 Dose: 40 mg Documented By: CYNTHIA Heparin Sodium (Porcine) (Heparin 100 Unit/Ml 5ml Flush) 5 ml FLUSH PRN PRN PRN Reason: Flush Stop: 02/08/24 02:14 Last Admin: 01/09/24 04:17 Dose: 5 ml Documented By: CYNTHIA Liothyronine Sodium (Liothyronine Sodium 5 Mcg Tab) 5 mcg PO [id number] [facility] Stop: 02/08/24 06:29 Last Admin: 01/09/24 05:36 Dose: 5 mcg Documented By: CYNTHIA Loratadine (Loratadine 10 Mg Tab) 10 mg PO BID BUZZ Stop: 02/08/24 08:59 Last Admin: 01/09/24 09:32 Dose: 10 mg Documented By: FELCIE Midodrine (Midodrine Hcl 2.5 Mg Tab) 5 mg PO QAM [facility] Stop: 02/08/24 08:59 Last Admin: 01/09/24 09:33 Dose: 5 mg Documented By: FELICE Morphine Sulfate (Morphine Sulfate Cr 15 Mg Tabcr) 15 mg PO Q12H BUZZ Stop: 01/22/24 20:59 Last Admin: 01/09/24 09:47 Dose: 15 mg Documented By: Admin: 01/08/24 21:08 Dose: 15 mg Documented By: MARIIA Pantoprazole Sodium (Pantoprazole 40 Mg Tab) 40 mg PO BID BUZZ Stop: 02/08/24 00:59 Last Admin: 01/09/24 09:33 Dose: 40 mg Documented By: Admin: 01/09/24 02:00 Dose: 40 mg Documented By: CYNTHIA Pyridostigmine Camby (Pyridostigmine Camby 60 Mg Tab) 60 mg PO BID BUZZ Stop: 02/08/24 00:44 Last Admin: 01/09/24 09:35 Dose: 60 mg Documented By: Admin: 01/09/24 01:15 Dose: 60 mg Documented By: CYNTHIA Spironolactone (Spironolactone 25 Mg Tab) 50 mg PO QAM BUZZ Stop: 02/08/24 08:59 Last Admin: 01/09/24 09:34 Dose: 50 mg Documented By: FELICE Discontinued Medications Ascorbic Acid (Ascorbic Acid 500 Mg Tab) 1,000 mg PO NOW STA Stop: 01/09/24 01:01 Last Admin: 01/09/24 01:16 Dose: 1,000 mg Documented By: CYNTHIA Furosemide (Furosemide Inj 20 Mg/2 Ml Vial) 20 mg IV ONE ONE Stop: 01/08/24 20:49 Last Admin: 01/08/24 21:08 Dose: 20 mg Documented By: MARIIA Hydroxyzine HCl (Hydroxyzine Hcl 25 Mg Tab) 75 mg PO NOW STA Stop: 01/09/24 00:52 Last Admin: 01/09/24 01:18 Dose: 75 mg Documented By: CYNTHIA Albumin Human (Albumin 25%) 25 gm in 100 mls @ 50 mls/hr IV ONE ONE Stop: 01/09/24 03:29 Last Infusion: 01/09/24 04:12 Dose: Infused Documented By: Admin: 01/09/24 02:01 Dose: 50 mls/hr Documented By: CYNTHIA Loratadine (Loratadine 10 Mg Tab) 10 mg PO NOW STA Stop: 01/09/24 01:01 Last Admin: 01/09/24 01:16 Dose: 10 mg Documented By: CYNTHIA Melatonin (Melatonin 3 Mg Tab) 9 mg PO NOW STA Stop: 01/09/24 01:03 Last Admin: 01/09/24 01:15 Dose: 9 mg Documented By: CYNTHIA Montelukast Sodium (Montelukast Sodium 10 Mg Tablet) 10 mg PO NOW ONE Stop: 01/09/24 01:16 Last Admin: 01/09/24 01:16 Dose: 10 mg Documented By: CYNTHIA Tizanidine HCl (Tizanidine Hcl 4 Mg Tablet) 2 mg PO NOW STA Stop: 01/09/24 01:02 Last Admin: 01/09/24 01:16 Dose: 2 mg Documented By: CYNTHIA Imaging Data Radiologist's Impression: Chest X-Ray 01/08/24 15:17 XR chest 2V PA/lateral HISTORY: 38 years-old Female lower extremity edema acute shortness of breath with possible pulmonary edema COMPARISON: CTA chest 09/23/2023 TECHNIQUE: PA and lateral views of the chest. FINDINGS: Right IJ [id number] catheter noted with distal tip in the expected location of the upper SVC. Cardiac silhouette is normal. Lungs are clear. No pneumothorax or pleural effusion. Cannulated screws project over the left glenoid. IMPRESSION: No acute process, particularly there is no evidence of pulmonary edema. ACT 112: Negative or not required by law. The above report was generated using voice recognition software. It may contain grammatical, syntax or spelling errors. Electronically signed by: Sarabjit Rojas M.D. 01/08/2024 6:29 PM Venous Doppler Study 01/08/24 15:17 BILATERAL LOWER EXTREMITY VENOUS DOPPLER HISTORY: Acute pain and swelling of the lower legs lower extremity edema COMPARISON STUDY: 09/23/2023 FINDINGS: There is normal compressibility, flow, and augmentation within the bilateral lower extremity deep venous systems. IMPRESSION: No DVT within the right or left lower extremity. ACT 112: Negative or not required by law. Electronically signed by: Sarabjit Rojas M.D. 01/08/2024 6:15 PM Discharge Plan Visit Data Chief Complaint: Swelling/Edema to Extremity Stated Complaint: EDEMA ED Provider: Madrigal,Niketu J. Discharge Problem: Bilateral edema of lower extremity, Cramps of lower extremity, Fatigue Patient Disposition: Admitted As Inpatient Discharge Instructions Interventions: ED Discharge Assessment Last Done: 01/08/24 23:33
[2024-01-08] MEDS ORDERED: ALUMINUM/MAGNESIUM SUSP 30 ML UDC PO PRN (23:32)
[2024-01-08] MEDS ORDERED: ONDANSETRON INJ 2 MG/ML 2 ML VIAL IV PRN (23:32)
[2024-01-08] MEDS ORDERED: MELATONIN 3 MG TAB PO PRN (23:32)
[2024-01-08] MEDS ORDERED: ACETAMINOPHEN 325 MG TAB PO PRN (23:32)
[2024-01-08] MEDS ORDERED: MAGNESIUM HYDROXIDE SUSP 30 ML UDC PO PRN (23:32)
[2024-01-09] MEDS ORDERED: NALOXONE NASAL SPRAY 4 MG ER HOMEPACK PRN (01:04)
[2024-01-09] MEDS: CARBIDOPA/LEVODOPA 25/100MG TAB PO SCH (01:15)
[2024-01-09] MEDS: MELATONIN 3 MG TAB PO STA (01:15)
[2024-01-09] MEDS: FAMOTIDINE 40 MG TABLET PO SCH (01:15)
[2024-01-09] MEDS: pyRIDostigmine bromide 60 MG TAB PO SCH (01:15)
[2024-01-09] MEDS: tiZANidine HCL 4 MG TABLET PO STA (01:16)
[2024-01-09] MEDS: MONTELUKAST SODIUM 10 MG TABLET PO ONE (01:16)
[2024-01-09] MEDS: LORATADINE 10 MG TAB PO STA (01:16)
[2024-01-09] MEDS: ASCORBIC ACID 500 MG TAB PO STA (01:16)
[2024-01-09] MEDS: hydrOXYzine HCl 25 MG TAB PO STA (01:18)
[2024-01-09] MEDS: PANTOprazole 40 MG TAB PO SCH (02:00)
[2024-01-09] MEDS: ALBUMIN 25% 25 GM/100 ML VIAL IV ONE (02:01)
[2024-01-09] MEDS ORDERED: NALOXONE HCL 0.4 MG/1 ML VIAL/CARP IV PRN (02:23)
[2024-01-09] MEDS: HEPARIN 100 UNIT/ML 5ML FLUSH FLUSH PRN (04:17)
[2024-01-09] MEDS: LIOTHYRONINE SODIUM 5 MCG TAB PO SCH (05:36)
[2024-01-09] MEDS ORDERED: NON-FORMULARY MEDICATION (Colesevelam [Welchol] 625 mg tablet) PO SCH (09:00)
[2024-01-09] MEDS: ASCORBIC ACID 500 MG TAB PO SCH (09:30)
[2024-01-09] MEDS: CYCLOBENZAPRINE HCL 10 MG TAB PO SCH (09:31)
[2024-01-09] MEDS: LORATADINE 10 MG TAB PO SCH (09:32)
[2024-01-09] MEDS: MIDODRINE HCL 2.5 MG TAB PO SCH (09:33)
[2024-01-09] MEDS: SPIRONOLACTONE 25 MG TAB PO SCH (09:34)
[2024-01-09] MEDS: ALPRAZolam 0.5 MG TABLET PO PRN (09:47)
--- NOTE | 2024-01-09 13:23 | Hospitalist Progress Note ---
Date of Service January 09, 2024 Assessment & Plan (1) Chronic venous insufficiency: Plan: With increasing lower extremity edema for the past several months. Torsemide has been discontinued and she is now on bumetanide 1 mg IV twice daily. Will monitor intake and output (2) POTS (postural orthostatic tachycardia syndrome): Plan: Stable. Continue current medical management (3) Gisele-Danlos syndrome: Plan: Stable. Continue current medical management (4) Obesity, morbid, BMI 40.0-49.9: Plan: BMI greater than 40. Significant weight loss recommended Plan Hopeful discharge to home tomorrow, January 09 Admission and Anticipated Discharge Date Admission Date: January 08, 2024 Subjective Alert and oriented. No distress. Unfortunately, she has chronic medical problems that will need continued outpatient follow-up. We agreed to try bumetanide for diuresis which replaces torsemide. Recent cardiac echo revealed preserved ejection fraction. Venous Doppler evaluation of both legs negative for DVT. Total protein 7.1 and albumin 3.9 on admission. Chest x-ray negative for CHF. BNP 19. Hopeful discharge to home tomorrowJanuary 09 Review of Systems 2 Review of Systems: Constitutional-no fever or chills ENT-no blurred vision, no double vision, no epistaxis, no sore throat Respiratory-no cough, no wheezing, no shortness of breath Cardiac-no palpitations, no chest pain, no syncope GI-no nausea, vomiting, diarrhea, melena, hematochezia -no urinary retention, no urinary incontinence, no dysuria, no hematuria Musculoskeletal-worsening lower extremity peripheral edema over the past several months Skin-no bruising, no rashes, no pruritus Neuro-no isolated weakness, no paresthesia Psych-no depression, no anxiety Physical Exam 2 Physical Exam: General-alert and oriented x3, no fever, no chills HEENT-head atraumatic and normocephalic, pupils equal and reactive to light, extraocular muscles intact Neck-no lymphadenopathy or thyromegaly, trachea midline Chest-clear to auscultation. No rales, wheezing or rhonchi Cardiac-regular rate and rhythm, normal S1 and S2 Abdomen-normal bowel sounds, no hepatosplenomegaly Extremities-chronic appearing 2+ pitting edema below the knees bilaterally Neuro-cranial nerves II through XII intact, motor and sensory function within normal limits, strength symmetrical, no focal deficits Psych-normal affect, normal mood Results & Data Results & Data Vital Signs (Past 12 Hours) Vital Signs Temp Pulse Resp BP Pulse Ox O2 Del Method 01/09/24 08:35 36.5 C 53 L 17 96/56 L 98 Room Air Laboratory Results 01/08/24 15:20 01/08/24 15:20 PG Care Time/CCT Total # of Minutes Spent Total Time Spent with Patient: Total time spent is greater than 50% in coordination of care (as documented) at patient's floor/unit and/or counseling patient: Coding Level of Care Code 31422 SUB INP/OBS CARE 3/50MIN Diagnoses Chronic venous insufficiency I87.2 POTS (postural orthostatic tachycardia syndrome) I49.8 Gisele-Danlos syndrome Q79.60 Obesity, morbid, BMI 40.0-49.9 E66.01
[2024-01-09] MEDS: MoRPHine SULFATE IR 15 MG TAB (IMMEDIATE RELEASE) PO PRN (16:05)
[2024-01-09] MEDS: BUMETANIDE 1 MG in SYRINGE 0 ML IV SCH (19:21)
[2024-01-09] MEDS: MELATONIN 3 MG TAB PO SCH (21:37)
[2024-01-09] MEDS: hydrOXYzine HCl 25 MG TAB PO SCH (21:37)
[2024-01-09] MEDS: MONTELUKAST SODIUM 10 MG TABLET PO SCH (21:38)
[2024-01-09] MEDS: tiZANidine HCL 4 MG TABLET PO SCH (21:39)
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
[2024-01-10 07:59] LABS: BUN Creatinine Ratio 8.3 (10-20); Creatinine Clr Calc Pharmacy 74.3 ml/min; Est GFR (Non-African American) 46.6 ml/min
[2024-01-10] MEDS: MIDODRINE HCL 2.5 MG TAB PO PRN (09:21)
[2024-01-10] MEDS: HYDROCORTISONE SOD 100 MG in SYRINGE 0 ML IV SCH (11:05)
[2024-01-10] MEDS: ONDANSETRON 4 MG OD TAB PO PRN (13:45)
[2024-01-10] MEDS: diphenhydrAMINE Capsule 25 MG CAP PO PRN (17:41)
--- NOTE | 2024-01-10 17:44 | Hospitalist Progress Note ---
Date of Service January 10, 2024 Assessment & Plan (1) Adrenal insufficiency: Plan: 38-year-old woman with complex medical history including Gisele-Danlos syndrome, carries diagnosis of POTS on chronic IV fluids via port, chronic magnesium depletion, chronic gastrointestinal problems, many orthopedic injuries and surgeries joint and muscle pain. presented to ED with leg edema and truly feeling terrible the last few months rather than POTS she has been frankly hypotensive and is dependent on IV fluids and salt to maintain her blood pressure fortunately I had adequate time to read review her extensive chart last night and I noticed she had very low random cortisol approximately 1 year ago. There is no associated primary or specialty visit in the [facility] chart and the ordering provider seems to be an ship's pilot not affiliated or even located in this area, perhaps was a outpatient telemedicine consultation Per my chart review of [facility] and outside medical records in scan docs: longstanding orthostatic intolerance, remotely at least 10 years ago she was on florinef in 2011 had adrenal insufficiency thought secondary to recent course(s) of prednisone for peanut allergy, AM cortisol of 1.3, Was on hydrocortisone for a year then stopped on advice of a per diem clerk had been off of it for two years when seen at endo clinic at [facility] 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 this was all at [facility] 09/02/22 had AM cortisol of 1.27 at this hospital 10/20/23 had celestone injection of right knee by ortho. Ortho note states she has had multiple steroid injections in the past, no other steroids in the past 6 months however 01/10/24 AM cortisol of 0.8, ACTH pending Reviewed all prior labs from [facility] no pattern of hyponatremia, hyperkalemia or calcium abnormalities. Recently has been on frequent IV fluids and diuretics which would mask hyponatremia/hyperkalemia, however. Unclear whether this is primary or secondary adrenal insufficiency, but it does not seem that she has had excessive or frequent steroids within the past year and two AM levels <3 are highly suggestive of adrenal insufficiency, as are many of her symptoms especially the worsening fluid-dependent hypotension. There is an association with autoimmune adrenalitis caused by CAH and some forms of EDS. I am not sure why cortisol levels were so high in 2015 but that was almost a decade ago, and does not climate change analyst of the current picture. She is not in adrenal crisis but will give IV hydrocortisone today to see whether she has a clearcut response, then taper over a few days to oral dosing and follow up with Dr. White (2) Chronic venous insufficiency: Plan: this is resultant of combination of venous stasis possible lymphedema and necessity for frequent IV crystalloid and high salt diet to maintain her blood pressure With increasing lower extremity edema for the past several months. improved with 2 doses of IV Bumex yesterday however, BUN/creatinine is increased so no more Bumex given today Hopefully she will be able to discontinue IV fluids thus ameriolate the above problem. Will try to avoid IV fluids today. (3) POTS (postural orthostatic tachycardia syndrome): Plan: At this point doesn't meet criteria for POTS because she has kendra hypotension. See above. (4) Gisele-Danlos syndrome: Plan: Stable. Continue current medical management (5) Obesity, morbid, BMI 40.0-49.9: Plan: BMI greater than 40. Significant weight loss recommended. Outpatient they had been working on getting authorized for a GLP-1. Not a candidate for bariatric surgery because of some pyloric stenosis. She had an endoscopic myotomy procedure recently which alleviated her gastroparesis-type symptoms temporarily. Admission and Anticipated Discharge Date Admission Date: January 08, 2024 Subjective treated with 2 doses of IV Bumex yesterday for leg edema, which is somewhat improved today she says the for the past 6 weeks she has had many falls, low blood pressure episodes, having vision disturbances like seeing colored lights when blood pressure is low recently at [facility] her blood pressure was fairly low staff called her doctor, did improve after IV fluids has long-term easy bruising, many GI symptoms, recent problems with muscle cramping, joint pains Physical Exam 2 Physical Exam: PHYSICAL EXAMINATION Last 24h vital signs reviewed, see documentation in flowsheet General: comfortable appearing, no distress, sitting in bed HEENT: Normocephalic, atraumatic, pupils round and equal, sclerae anicteric, no conjunctival injection, moist mucus membranes Lungs: Normal respiratory effort. Heart: deferred Abdomen: Soft, nondistended. Extremities: Warm, dry, well-perfused. nonpitting extremity edema, especially thighs. Neuro: Alert and oriented x 4, face symmetric, moves 4 extremities well Psych: Normal affect and behavior Results & Data Results & Data Vital Signs (Past 12 Hours) Vital Signs Temp Pulse Pulse Resp BP Pulse Ox O2 Del Method 01/10/24 14:40 36.5 C 94 H 16 122/74 94 Room Air 01/10/24 07:56 36.7 C 77 16 106/71 97 Room Air Laboratory Results 01/08/24 15:20 01/10/24 07:12 PG Care Time/CCT Total # of Minutes Spent Total Time Spent with Patient: I personally spent: 55 minutes today on clinical care activities including: reviewing chart notes and vital signs reviewing labs reviewing studies reviewing extensive previous medical record in our system as well as outside records examining and counseling the patient writing orders documentation Coding Level of Care Code 08987 SUB INP/OBS CARE 3/50MIN Diagnoses Adrenal insufficiency E27.40 Chronic venous insufficiency I87.2 POTS (postural orthostatic tachycardia syndrome) I49.8 Gisele-Danlos syndrome Q79.60 Obesity, morbid, BMI 40.0-49.9 E66.01
[2024-01-10] MEDS: POLYETHYLENE (MIRALAX) 17 GM PACK PO PRN (21:23)
--- NOTE | 2024-01-10 21:57 | Billing Data ---
Date of Service January 10, 2024 Coding Level of Care Code 08856 INT INP/OBS CARE
[2024-01-11 07:09] LABS: BUN Creatinine Ratio 9.4 (10-20); Calcium 9.7 mg/dl (8.6-10.3); Creatinine Clr Calc Pharmacy 77.5 ml/min; Est GFR (African American) 56.9 ml/min; Est GFR (Non-African American) 49.1 ml/min; Magnesium 1.8 mg/dl (1.7-2.4); Potassium 4.4 mmol/L (3.5-5.1)
[2024-01-11] MEDS: HYDROCORTISONE SOD 50 MG in SYRINGE 0 ML IV SCH (09:05)
[2024-01-11] MEDS: MAGNESIUM SULFATE / D5W 1 GM/100 ML BAG IV SCH (11:33)
--- NOTE | 2024-01-11 17:31 | Discharge Summary ---
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 For full review of past medical history and current coordination of care amongst multiple medical providers please refer to PCP note 12/23/23. Was sent to the ED by the [facility] after she had her scheduled magnesium infustion. States that her LE edema has been progressively worsening over the last several months to a year but more significant in the last few days. States that at home she takes benedryl and puts her legs up and this seems to help. Thinks that she is "third spacing" due to decreased PO intake. Labs drawn in [facility] were all WNL. VSS. At the time of admission, pt complains of back pain as she has missed her scheduled morphine dose today and of LE edema. No SOB, CP. Principal Diagnosis adrenal insufficiency Discharge Exam PHYSICAL EXAMINATION Last 24h vital signs reviewed, see documentation in flowsheet General: comfortable appearing, no distress HEENT: Normocephalic, atraumatic, pupils round and equal, sclerae anicteric, no conjunctival injection, moist mucus membranes Lungs: Normal respiratory effort. Heart: Abdomen: Soft, nondistended. Extremities: Warm, dry, well-perfused. Bilateral LE nonpitting edema. Neuro: Alert and oriented x 4, face symmetric, moves 4 extremities well Psych: Normal affect and behavior Discharge Data Allergies Allergy/AdvReac Type Severity Reaction Status Date / Time banana Allergy Severe tongue Verified 01/08/24 10:55 numbness honeydew Allergy Severe tongue Verified 01/08/24 10:55 numbness iodine Allergy Severe blisters Verified 01/08/24 10:55 on contact area peanut Allergy Severe Anaphylaxis Verified 01/08/24 10:55 adhesive Allergy Intermediate SKIN Verified 01/08/24 10:55 IRRITATION WITH TAPES cantaloupe Allergy Intermediate tongue Verified 01/08/24 10:55 numbness COVID-19 vaccine, mRNA, Allergy Intermediate HIVES, Verified 01/08/24 10:55 [id number], L BIVALENT PFIZER VACCINE gabapentin Allergy Intermediate TONGUE Verified 01/08/24 10:55 SWELLING, RASH Milk Containing Products Allergy Intermediate blood in Verified 01/08/24 10:55 (Dairy) stool shellfish derived Allergy Intermediate mouth Verified 01/08/24 10:55 blisters; "bad" gi upset chlorhexidine Allergy Mild RASH WITH Verified 01/08/24 10:55 SCENTED ONLY latex Allergy Mild LIPS NUMB Verified 01/08/24 10:55 BLOWING UP A BALLOON nickel Allergy Mild Rash Verified 01/08/24 10:55 casein Allergy Unknown Unknown Verified 01/08/24 10:55 Sutures Allergy "DISSOLVEABLE" Verified 01/08/24 10:55 = body will reject apple AdvReac Mild Gastrointestinal Verified 01/08/24 10:55 Upset burton AdvReac Mild Gastrointestinal Verified 01/08/24 10:55 Upset carrot AdvReac Mild Gastrointestinal Verified 01/08/24 10:55 Upset corn AdvReac Mild Gastrointestinal Verified 01/08/24 10:55 Upset melon AdvReac Mild Gastrointestinal Verified 01/08/24 10:55 Upset soy AdvReac Mild Gastrointestinal Verified 01/08/24 10:55 Upset tomato AdvReac Mild Gastrointestinal Verified 01/08/24 10:55 Upset tree nut AdvReac Mild Gastrointestinal Verified 01/08/24 10:55 Upset wheat AdvReac Mild Gastrointestinal Verified 01/08/24 10:55 Upset Consultations 01/08/24 21:10 ED Decision to Admit Stat Ordered Studies 01/08/24 15:17 US venous doppler LE Stat Hospital Course (1) Adrenal insufficiency: 38-year-old woman with complex medical history including Gisele-Danlos syndrome, carries diagnosis of POTS on chronic IV fluids via port, chronic magnesium depletion, chronic gastrointestinal problems, many orthopedic injuries and surgeries joint and muscle pain. presented to ED with leg edema and truly feeling terrible the last few months. Past 5-6 weeks multiple instances of very low blood pressure, multiple falls, presyncopal symptoms, increased tachycardia. she has been frankly hypotensive and is dependent on IV fluids and salt to maintain her blood pressure fortunately I had adequate time to read review her extensive chart and I noticed she had very low random cortisol approximately 1 year ago. There is no associated primary or specialty visit in the [facility] chart and the niko steen provider seems to be an coffee farmer not affiliated or even located in this area, perhaps was a outpatient telemedicine consultation but Shu can't recall that. 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 this was all at [facility] 09/02/22 had AM cortisol of 1.27 at this hospital 10/20/23 had celestone injection of right knee by ortho. Ortho note states she has had multiple steroid injections in the past, no other steroids in the past 6-12 months however 01/10/24 AM cortisol of 0.8, ACTH pending Reviewed all prior labs from [facility] no pattern of hyponatremia, hyperkalemia or calcium abnormalities. Recently has been on frequent IV fluids and diuretics which would mask hyponatremia/hyperkalemia, however. Unclear whether this is primary or secondary adrenal insufficiency, but it does not seem that she has had excessive or frequent steroids within the past year and two AM levels <3 are highly suggestive of adrenal insufficiency, as are many of her symptoms especially the worsening fluid-dependent hypotension. There is an association with autoimmune adrenalitis caused by CAH and some forms of EDS. I am not sure why cortisol levels were so high in 2014 but that was almost a d ecade ago, and does not change immediate management. She was not in adrenal crisis but had IV hydrocortisone 01/09- AM 01/10 to see whether she had a clearcut response and she did, tachycardia resolved despite not getting any IV fluids this admission (and had IV diuretics x 2 doses day of presentation to ED). Orthostatic VS day of discharge normal - lying 113/69 hr 75, sitting 130/84 hr 81, standing 127/78 hr 80 Discharged on oral hydrocortisone 20 bid (will need to be tapered) and follow up with Dr. White. Note AM ACTH still pending We discussed trying to taper back on her IV fluids if symptoms improve as well as midodrine If leg cramping improved she can stop the sinemet and muscle relaxers (2) Chronic venous insufficiency: this is resultant of combination of venous stasis possible lymphedema and necessity for frequent IV crystalloid and high salt diet to maintain her blood pressure With increasing lower extremity edema for the past several months. improved with 2 doses of IV Bumex 01/08 however, BUN/creatinine increased so no more Bumex given Hopefully she will be able to discontinue IV fluids and excess salt intake thus ameliorate the edema problem. (3) POTS (postural orthostatic tachycardia syndrome): At this point doesn't meet criteria for POTS because she has kendra hypotension. See above. (4) Gisele-Danlos syndrome: Stable. Continue current medical management (5) Obesity, morbid, BMI 40.0-49.9: BMI greater than 40. Significant weight loss recommended. Outpatient they had been working on getting authorized for a GLP-1. Not a candidate for bariatric surgery because of some pyloric stenosis. She had an endoscopic myotomy procedure recently which alleviated her gastroparesis-type symptoms temporarily. Plan I did speak with Dr. Goode in person this weekend and have sent in basket messages to Dr. Bhandari and Christopher Total Time Total Time Spent Total Time Spent (In Minutes): I personally spent: 45 minutes today on clinical care activities including: reviewing chart notes and vital signs reviewing labs examining and counseling the patient communication with outpatient providers writing orders, discharge instructions documentation Discharge Plan Discharge Items Patient Disposition: Home - Self-Care Reason For Visit: LE EDEMA Discharge Diagnosis: adrenal insufficiency Activity: Resume your previous activity Non-emergency contact: Primary Care Provider Call non-emergency contact if: you have any medication questions and your symptoms worsen Follow-up/Referrals: Vero Bhandari MD [Primary Care Provider] - 01/16/24 10:00 am (APPOINTMENT WITH NABILA MEYERS) Soraida White MD [Physician] - Diet: Regular Addtl Attending Provider Instructions: You were treated for adrenal insufficiency adrenal insufficiency causes "POTS" like symptoms but more severe including frankly low blood pressure and tachycardia, and pre-syncope and syncope or falls, all of which you have been having. 8AM serum cortisol was extremely low at 0.8 ACTH level is pending take hydrocortisone as directed in AM and mid-afternoon follow up with Dr. White as soon as possible you will be able to reduce or potentially eliminate the IV fluids once adrenal insufficiency is controlled, as well as cut back on your salt intake. This will help lessen the problem of leg edema significantly. Try cutting your usual IV fluid volume in half and see how that goes. If you are no longer having low blood pressure / fast heart rate you can reduce them further one week at a time. If you're off IV fluids you can work on getting off the midodrine as well. if you have a major (hospitalized) illness or surgery you will need to have stress dose steroids given. If you have a minor illness at home you can increase your oral dose, perhaps by doubling your usual dose for a few days - talk to Dr. White about how to do this. if you stop having muscle cramps once on the steroids, try stopping the sinemet for your leg edema you can try using compression socks or MAYI bandage wraps, starting at the feet and wrapping up towards the thigh. weight loss will also help if possible It was a pleasure taking care of you in the hospital, Loretta Franklin MD Pending Studies at Discharge: Yes Stand-Alone Forms: [facility], Smoking Cessation Medications and DC Order Prescriptions: New hydrocortisone [Cortef] 10 mg Tablet 20 mg PO [id number] Qty: 60 0RF Continued (DME) IV admin extension set 60 " infusion set See Rx Instructions .Route Rx Instructions: USE ONCE EVERY OTHER DAY DIRECTED WITH SALINE INFUSION. (DME) IV admin extension set Infusion Set See Rx Instructions .Route Qty: 1 8RF Rx Instructions: IV admin extension set 60". Use once every other day as directed with saline infusion naloxone [Narcan] 4 mg/actuation spray,non-aerosol 4 mg intranasal Q2M PRN (Reason: opioid overdose) Qty: 2 0RF Rx Instructions: spray 1 dose into ONE nostril; alternate nostrils w each dose until help arrives torsemide 10 mg tablet 10 mg PO QAM PRN (Reason: swelling) Qty: 90 3RF esomeprazole magnesium 40 mg capsule,delayed release(DR/EC) 40 mg PO BID Qty: 180 3RF Rx Instructions: TAKE 1 CAPSULE BY MOUTH TWICE A DAY morphine 15 mg tablet extended release 15 mg PO BID Qty: 60 0RF Xolair 150 mg/mL syringe 300 mg subcut .COMPLEX Qty: 4 11RF Rx Instructions: INJECT 300 mg subcutaneously EVERY 2 WEEKS. PT TO SELF ADMINISTER AT HOME APPROVED Good 09/08/23-11/05/24 spironolactone 50 mg tablet 50 mg PO QAM Qty: 90 1RF hydroxyzine HCl 25 mg tablet See Rx Instructions .ROUTE .COMPLEX Qty: 90 11RF Dose Instruction: TAKE 1 TO 3 TABLETS BY MOUTH AT BEDTIME NEEDED FOR HIVES OR ALLERGIC REACTIONS Rx Instructions: TAKE 1 TO 3 TABLETS BY MOUTH AT BEDTIME NEEDED FOR HIVES OR ALLERGIC REACTIONS levothyroxine [Tirosint] 125 mcg capsule 125 mcg PO DAILY Qty: 30 2RF Rx Instructions: pl give Tirosint only as patient does not respond to levothyroxine ergocalciferol (vitamin D2) 1,250 mcg (50,000 unit) capsule 1,250 mcg PO WK Qty: 14 3RF Rx Instructions: sundays lemborexant 5 mg tablet 5 mg PO HS Qty: 30 0RF morphine 15 mg tablet 7.5 mg PO BID PRN (Reason: severe breakthrough pain) Qty: 3 0RF ascorbic acid (vitamin C) 1,000 mg tablet 1 g PO BID ondansetron 8 mg tablet,disintegrating 8 mg PO Q8H PRN (Reason: nausea and vomiting) Qty: 90 3RF Low Dose Naltrexone 4.5 mg PO BID KETOTIFEN 2 mg PO BID Patient Comments: eye drop formulated to oral medication carbidopa-levodopa 25-100 mg tablet 1 tab PO BID cromolyn 100 mg/5 mL concentrate 200 mg PO QID Kyleena 17.5 mcg/24 hrs (5 yrs) 19.5 mg intrauterine device 1 device intrauterine CONT Rx Instructions: PT STATES THAT SHE HAS BOTH KYLEENA AND NUVARING- PLEASE DO NOT REMOVE meloxicam 7.5 mg tablet 7.5 mg PO BID Qty: 180 0RF Hold Instructions: did not start yet Patient Comments: has not yet started 06/23/23 olopatadine [Patanase] 0.6 % spray,non-aerosol 2 spray intranasal BID Qty: 30.5 11RF Rx Instructions: administer into each nostril epinephrine [EpiPen 2-Marlo] 0.3 mg/0.3 mL auto-injector 0.3 mg IM Q4H PRN (Reason: anaphylaxis) Qty: 2 3RF midodrine 5 mg tablet 5 mg PO TID Rx Instructions: do not give last dose of day after 6PM or within 4 hrs of bedtime loratadine [Claritin] 10 mg tablet 10 mg PO BID cyclobenzaprine 10 mg tablet 20 mg PO QAM Qty: 180 3RF pyridostigmine bromide 60 mg tablet 60 mg PO BID Qty: 60 11RF famotidine 40 mg tablet 40 mg PO BID Qty: 180 3RF tizanidine 2 mg tablet 2 mg PO HS etonogestrel-ethinyl estradiol [EluRyng] 0.12-0.015 mg/24 hr ring 1 vag ring VAGINAL MONTHLY Rx Instructions: Friday liothyronine [Cytomel] 5 mcg tablet 5 mcg PO 3XWK Patient Comments: m/w/ Rx Instructions: friday,friday,friday Nurtec ODT 75 mg tablet,disintegrating 75 mg PO UD PRN (Reason: Migraine Headache) Rx Instructions: 75 mg PO Take one tablet once a day as needed for migraine, max one dose per 24 hours, limit dosing to 2-3 times per week; melatonin 10 mg Tablet 10 mg PO HS Magnesium Sulfate In Lac Ring 2 g IV DIRECTED Rx Instructions: Weekly, over 1 hour amoxicillin 500 mg tablet 2,000 mg PO ONCE PRN (Reason: Other) Rx Instructions: Take 4 tablets 1 hour before dental procedure montelukast [Singulair] 10 mg Tablet 10 mg PO QPM cyanocobalamin (vitamin B-12) 1,000 mcg/mL solution 1,000 mcg IM .EVERY 14 DAYS Rx Instructions: sundays lactated Ringers Parenteral Solution 1 ea IV .COMPLEX Rx Instructions: 1 ea intravenously QOD ; 1 liter alprazolam 2 mg tablet,disintegrating 2 mg PO TID PRN (Reason: Anxiety) colesevelam [WelChol] 625 mg tablet 1,250 mg PO DAILY Patient Comments: not currently taking 06/23/23 magnesium glycinate 480 mg PO HS Discharge Orders: Discharge Order (Routine); Ordered 01/11/24 Ordered By: Loretta Franklin Admission Data Admit Date/Time: 01/08/24 20:56 Attending Provider: Loretta Franklin Admit Provider: Terrence Jordan Primary Care Provider: Vero Bhandari Other Providers: Pino Jeong Other Interventions: Discharge Summary Assessment (RN) Last Done: 01/11/24 16:35 Coding Level of Care Code 53315 INP/OBS DISCH >30 MIN Diagnoses Adrenal insufficiency E27.40 Chronic venous insufficiency I87.2 POTS (postural orthostatic tachycardia syndrome) I49.8 Gisele-Danlos syndrome Q79.60 Obesity, morbid, BMI 40.0-49.9 E66.01
[2024-01-12] MEDS ORDERED: HYDROCORTISONE 10 MG TAB PO SCH (09:00)
== END 2024-01-11 18:35 | disposition home or self-care (01) | DRG 644 ==
LOC: ED 15:13 → SUATTDRO 20:56 → 3N 20:56

== ENCOUNTER 2024-04-09 21:45 | Inpatient (IN) ==
[2024-04-09] MEDS: HYDROCORTISONE SOD SUCCINATE 100 MG/2 ML VIAL IV STA (22:59)
[2024-04-09] MEDS: SODIUM CHLORIDE 0.9% 1,000 ML IV SCH (23:00)
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
--- OUTSIDE RECORDS SUMMARY | 2024-04-09 23:05 | External Medical Summary | Summary of Care ---
Author Name Unknown Organization [facility] Address [address] [facility] [place] [address] Phone [phone] Care Team Providers Care Trial Consultant Name Role Phone Vero Bhandari MD Primary Care Provide r Reason for Visit * Reason Onset Date Comments Appointment 04/08/2024 Encounter Details Date Type Department Care Team (Late st Contact Info) Description 04/08/2024 Telephone Gastroenterology, [facility] [address] [place] [phone] Christopher Rendon MD [address] [place] [phone] Appointment Allergies Active Allergy Reactions Criticality Noted [...] nostril as needed for Rhinitis. Active Pyridostigmine [place] 30 MG Oral Tablet (Mestinon) Take 1 [...] 05/03/2024 12:00 PM EDT Office Visit Gastroenterology, [facility] [address] [facility] [place] [address] Evita Kam PA-C [address] [place] [...] filedocumented as of this encounter Care Teams Trial Consultant Relationship Specialty Start Date End Date Vero Bhandari MD [address] [place] [address] PCP - General Internal Medicine 11/19/22 documented as of this encounter
--- OUTSIDE RECORDS SUMMARY | 2024-04-09 23:05 | External Medical Summary | Summary of Care ---
Author Name Unknown Organization [facility] Address [address] [facility] [place] [address] Phone [phone] Care Team Providers Care Supervisor Waterproofing Name Role Phone Vero Bhandari MD Primary Care Provide r Reason for Visit * Reason Onset Date Comments Appointment 04/08/2024 Encounter Details Date Type Department Care Team (Late st Contact Info) Description 04/08/2024 Telephone Gastroenterology, [facility] [address] [place] [address] Christopher Rendon MD [address] [place] [phone] Appointment Allergies Active Allergy Reactions Criticality Noted [...] as of this encounter (statuses as of 04/09/2024) Medications Medication Sig Dispensed Refills Start Date [...] nostril as needed for Rhinitis. Active Pyridostigmine [place] 30 MG Oral Tablet (Mestinon) Take 1 [...] as of this encounter (statuses as of 04/09/2024) Active Problems Problem Noted Date Diagnosed Date Fibromyalgia 07/07/2019 Gisele-Danlos syndrome 07/28/2008 Anxiety state Chronic pain syndrome Gastroparesis Hypothyroidism documented as of this encounter (statuses as of 04/09/2024) Immunizations Name Administration Dates Next Due COVID-19 [...] encounter Miscellaneous Notes * Telephone Encounter - Kayli Banuelos OSA - 04/09/2024 9:39 AM EDT [facility] documented in this encounter Plan of Treatment Upcoming Encounters Date Type Department Care Team (Late st Contact Info) Description 05/03/2024 12:00 PM EDT Office Visit Gastroenterology, [facility] [address] [facility] [place] [address] Evita Kam PA-C [address] [place] [phone] Health Maintenance Due Date Last Done Comments [...] filedocumented as of this encounter Care Teams Supervisor Waterproofing Relationship Specialty Start Date End Date Vero Bhandari MD [address] [place] [address] PCP - General Internal Medicine 11/19/22 documented as of this encounter
--- OUTSIDE RECORDS SUMMARY | 2024-04-09 23:05 | External Medical Summary | Summary of Care ---
Author Name Unknown Organization [facility] Address [address] [place] [address] Phone [phone] Care Team Providers Care Sawmill Worker Name Role Phone Vero Bhandari MD Primary Care Provide r Reason for Visit * Reason Onset Date Comments Advice 03/23/2024 Encounter Details Date Type Department Care Team (Late st Contact Info) Description 03/23/2024 Telephone Palliative Medicine [facility] [address] [place] [address] Services, Scheduling [address] [place] [address] Advice Allergies Active Allergy Reactions Criticality Noted Date [...] as of this encounter (statuses as of 03/25/2024) Medications Medication Sig Dispensed Refills Start Date [...] nostril as needed for Rhinitis. Active Pyridostigmine [place] 30 MG Oral Tablet (Mestinon) Take 1 [...] Active Morphine Sulfate 15 MG Oral Tablet (Msir) Take 1 Tablet by mouth every 6 hours as needed for Pain, Severe or Pain, Breakthrough. 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 We cannot and should not engage in managing those symptoms. Appreciate the care coordination efforts Willard Omalley MD * Telephone Encounter - Zhen Gómez DO - 03/23/2024 7:34 PM EDT Patient calling to ask if Palliative Medicine will administer IV benadryl to help her nausea, gastroparesis symptoms. She is asking for advice on how to manage her symptoms of bile leaking for her EDS. She states she is unable to take down the zofran due to nausea. Patient is confused on what to donext. Her existing financial data analyst fired her from their practice due to We had an extensive conversation about scheduling with financial data analyst and general practitioner.I advised patient to takezofran with soft foods. * Telephone Encounter - Lo Ngo OSA - 03/23/2024 6:59 PM EDT Pt calling in for medication for EDS, currently having issues, oncology account specialist doctor paged. documented in this encounter Plan of Treatment Upcoming Encounters Date Type Department Care Team (Late st Contact Info) Description 04/02/2024 3:30 PM EDT Telemedicine Palliative Medicine [facility] [address] [place] [address] Willard Laguna MD [address] [place] [address] Health Maintenance Due Date Last Done Comments Depression Screening 1999 HIV Screening 2002 Hepatitis C Screening 2005 Hepatitis B Vaccine (1 of 3 - 19+ 3-dose series) 2006 Pap Smear 01/14/2008 Cervical Cancer Screening 2017 HPV/Co-Test 2017 TSH 04/04/2021 04/04/2020 COVID-19 Vaccine ( season) 2023 10/06/2020, 09/08/2020 Influenza Vaccine (FLU shot) (#1) [...] filedocumented as of this encounter Care Teams Sawmill Worker Relationship Specialty Start Date End Date Vero Bhandari MD [address] [place] [address] PCP - General Internal Medicine 11/19/22 documented as of this encounter
[2024-04-09 23:55] LABS: Basophils # (auto) 0.06 K/uL (0.00-0.20); Basophils % (auto) 0.5 %; Eosinophils # (auto) 0.42 K/uL (0.00-0.50); Eosinophils % (auto) 3.5 %; Hematocrit (blood only) 37.7 % (37.0-47.0); Hemoglobin 12.3 g/dl (12.0-16.0); Immature Granulocytes # (auto) 0.04 K/uL (0.01-0.20); Immature Granulocytes % (auto) 0.3 %; Lymphocytes # (auto) 4.23 K/uL (1.20-3.40); Lymphocytes % (auto) 35.5 %; Mean Corpuscular Hemoglobin 30.9 pg (25.0-34.0); Mean Corpuscular Hgb Conc 32.6 g/dL (32.0-36.0); Mean Corpuscular Volume 94.7 fL (80.0-100.0); Mean Platelet Volume 9.2 fL (9.4-12.4); Monocytes # (auto) 0.63 K/uL (0.11-0.59); Monocytes % (auto) 5.3 %; Neutrophils # (auto) 6.52 K/uL (1.40-6.50); Neutrophils % (auto) 54.9 %; Platelet Count 306 K/uL (130-400); RDW Coefficient of Variation 13.4 % (11.5-14.5); RDW Standard Deviation 46.5 fL (36.4-46.3); Red Blood Count 3.98 M/uL (4.20-5.40)
[2024-04-09 23:57] LABS: Pregnancy Test, Serum Negative (Negative)
--- NOTE | 2024-04-09 23:57 | Emergency Department Note ---
History of Present Illness General Chief complaint: Illness Stated complaint: ALLERGIC REACTION,BALANCE ISSUES,VISUAL ISSUES Time Seen by Provider: 04/09/24 22:02 History of Present Illness This 39-year-old female with adrenal insufficiency presents the ER complaining of generalized weakness not feeling well with abdominal pain for the past several days steadily getting worse. Patient states she does well with IV steroids but did not tolerate oral hydrocortisone recently. She states she can tolerate IV hydrocortisone. She states her face swelled up with oral hydrocortisone recently but did not come to the hospital for this. Patient denies chest pain, dyspnea, fever, vomiting, diarrhea. She did not take a stress dose of her steroids. She states she had lab work recently that showed electrolyte abnormalities and low hormone levels. She cannot be more specific about it. [facility] had no records of blood testing and there is nothing in the [facility] system. Home Medications Medication Instructions Recorded Confirmed Type etonogestrel 0.12 mg-ethinyl 1 vag ring vaginal MONTHLY 02/04/21 03/23/24 History estradiol 0.015 mg/24 hr vaginal ring (EluRyng) loratadine 10 mg tablet (Claritin) 10 mg PO BID 02/06/21 03/23/24 History ascorbic acid (vitamin C) 1,000 mg 1 g PO BID 01/29/22 03/23/24 History tablet ondansetron 8 mg disintegrating 8 mg PO Q8H PRN nausea and 02/14/22 03/23/24 Rx tablet vomiting #90 tabs amoxicillin 500 mg tablet 2,000 mg PO ONCE PRN Other 02/26/22 03/23/24 History IV admin extension set 60" 06/12/22 03/23/24 History epinephrine 0.3 mg/0.3 mL 0.3 mg (0.3 mL) IM Q4H PRN 07/15/22 03/23/24 Rx injection, auto-injector (EpiPen anaphylaxis #2 ea 2-Marlo) olopatadine 0.6 % nasal spray 2 spray intranasal BID #30.5 grams 07/15/22 03/23/24 Rx (Patanase) IV admin extension set #1 ea 07/17/22 03/23/24 Rx liothyronine 5 mcg tablet (Cytomel) 5 mcg PO 3XWK 08/20/22 03/23/24 History levonorgestrel 17.5 mcg/24 hr (up 1 device intrauterine CONT 11/15/22 03/23/24 History to 5 yrs) 19.5mg intrauterine device (Kyleena) cyanocobalamin (vitamin B-12) 1,000 mcg IM .EVERY 14 DAYS 12/10/22 03/23/24 History 1,000 mcg/mL injection solution naloxone 4 mg/actuation nasal 4 mg intranasal Q2M PRN opioid 01/03/23 03/23/24 Rx spray (Narcan) overdose #2 ea lactated Ringers 1 ea IV .COMPLEX 01/09/23 03/23/24 History cyclobenzaprine 10 mg tablet 20 mg (2 x 10 mg) PO QAM #180 tabs 03/21/23 03/23/24 Rx Magnesium Sulfate In Lac Ring 2 g IV DIRECTED 03/30/23 03/23/24 History melatonin 10 mg tablet 10 mg PO HS 03/30/23 03/23/24 History carbidopa 25 mg-levodopa 100 mg 1 tab PO BID 04/15/23 03/23/24 History tablet cromolyn 100 mg/5 mL oral 200 mg PO QID 04/15/23 03/23/24 History concentrate alprazolam 2 mg disintegrating 2 mg PO TID PRN Anxiety 06/03/23 03/23/24 History tablet colesevelam 625 mg tablet (WelChol) 1,250 mg PO DAILY 06/03/23 03/23/24 History magnesium glycinate 480 mg PO HS 06/03/23 03/23/24 History famotidine 40 mg tablet 40 mg PO BID #180 tabs 09/25/23 03/23/24 Rx pyridostigmine bromide 60 mg tablet 60 mg PO BID #60 tabs 09/25/23 03/23/24 Rx esomeprazole magnesium 40 mg 40 mg PO BID #180 caps 10/21/23 03/23/24 Rx capsule,delayed release spironolactone 50 mg tablet 50 mg PO QAM #90 tabs 11/18/23 03/23/24 Rx hydroxyzine HCl 25 mg tablet See Rx Instructions .Route 11/24/23 03/23/24 Rx .COMPLEX #90 tabs ergocalciferol (vitamin D2) 1,250 1,250 mcg PO WK #14 caps 12/30/23 03/23/24 Rx mcg (50,000 unit) capsule morphine 15 mg immediate release 7.5 mg (1/2 x 15 mg) PO BID PRN 01/05/24 03/23/24 Rx tablet severe breakthrough pain #3 tabs tizanidine 2 mg tablet 2 mg PO HS muscle spasticity 01/06/24 03/23/24 History morphine 15 mg tablet,extended 15 mg PO BID #60 tabs 01/17/24 03/23/24 Rx release montelukast 10 mg tablet 10 mg PO QPM #90 tabs 01/23/24 03/23/24 Rx (Singulair) KETOTIFEN 2 mg PO DAILY 01/24/24 03/23/24 History rimegepant 75 mg disintegrating 75 mg PO UD PRN Migraine Headache 01/26/24 03/23/24 Rx tablet (Nurtec ODT) #8 tabs Low Dose Naltrexone 4.5 mg PO DAILY #90 tabs 01/27/24 03/23/24 Rx omalizumab 150 mg/mL subcutaneous 300 mg (2 mL) subcut .COMPLEX #4 mL 01/28/24 03/23/24 Rx syringe (Xolair) diphenhydramine HCl 25 mg tablet 25 mg PO TID PRN allergy symptoms 02/11/24 03/23/24 Rx (Benadryl Allergy) #10 tabs meloxicam 7.5 mg tablet 7.5 mg PO BID #180 tabs 02/20/24 03/23/24 Rx lemborexant 5 mg tablet 10 mg PO HS 03/01/24 03/23/24 History Tirosint 125 mcg capsule 125 mcg PO DAILY #30 caps 03/09/24 03/23/24 Rx (levothyroxine) midodrine 5 mg tablet 5 mg PO TID Other #90 tabs 03/24/24 03/24/24 Rx Allergies Allergy/AdvReac Type Severity Reaction Status Date / Time banana Allergy Severe tongue Verified 03/23/24 15:55 numbness honeydew Allergy Severe tongue Verified 03/23/24 15:55 numbness iodine Allergy Severe blisters Verified 03/23/24 15:55 on contact area peanut Allergy Severe Anaphylaxis Verified 03/23/24 15:55 adhesive Allergy Intermediate SKIN Verified 03/23/24 15:55 IRRITATION WITH TAPES cantaloupe Allergy Intermediate tongue Verified 03/23/24 15:55 numbness COVID-19 vaccine, mRNA, Allergy Intermediate HIVES, Verified 03/23/24 15:55 [id number], L BIVALENT PFIZER VACCINE gabapentin Allergy Intermediate TONGUE Verified 03/23/24 15:55 SWELLING, RASH hydrocortisone Allergy Intermediate Swelling Verified 03/23/24 15:55 of Lip/Tongue/Throat Milk Containing Products Allergy Intermediate blood in Verified 03/23/24 15:55 (Dairy) stool shellfish derived Allergy Intermediate mouth Verified 03/23/24 15:55 blisters; "bad" gi upset chlorhexidine Allergy Mild RASH WITH Verified 03/23/24 15:55 SCENTED ONLY latex Allergy Mild LIPS NUMB Verified 03/23/24 15:55 BLOWING UP A BALLOON nickel Allergy Mild Rash Verified 03/23/24 15:55 casein Allergy Unknown Unknown Verified 03/23/24 15:55 Sutures Allergy "DISSOLVEABLE" Verified 03/23/24 15:55 = body will reject apple AdvReac Mild Gastrointestinal Verified 03/23/24 15:55 Upset burton AdvReac Mild Gastrointestinal Verified 03/23/24 15:55 Upset carrot AdvReac Mild Gastrointestinal Verified 03/23/24 15:55 Upset corn AdvReac Mild Gastrointestinal Verified 03/23/24 15:55 Upset melon AdvReac Mild Gastrointestinal Verified 03/23/24 15:55 Upset soy AdvReac Mild Gastrointestinal Verified 03/23/24 15:55 Upset tomato AdvReac Mild Gastrointestinal Verified 03/23/24 15:55 Upset tree nut AdvReac Mild Gastrointestinal Verified 03/23/24 15:55 Upset wheat AdvReac Mild Gastrointestinal Verified 03/23/24 15:55 Upset Past Med/Surg History Problem List Acute UTI (Acute) Hypomagnesemia (Acute) Weakness (Acute) Gisele-Danlos syndrome Adrenal insufficiency Bilateral edema of lower extremity (Acute) Osteoarthritis of right patellofemoral joint Obesity (BMI 30-39.9) Fatigue (Acute) Recurrent right knee instability History of arthroscopy of right knee Chronic venous insufficiency follows with Cardiology; per 03/2023 note, likely multifactorial; recommending more routine use of compression stockings Chronic diarrhea follows with GI Migraine without aura, not intractable, without status migrainosus Morbid obesity Right knee pain Cramps of lower extremity (Acute) Hypothyroidism GERD (gastroesophageal reflux disease) Atlantoaxial instability Shoulder joint instability Cervical spine instability Gisele-Danlos syndrome (Acute) Instability of left shoulder joint Lipedema Median arcuate ligament syndrome Elevated serum creatinine Insomnia secondary to chronic pain Hypomagnesemia (Acute) Iron deficiency Vitamin B12 deficiency Edema Osteogenesis imperfecta Urticaria Lymphocytic colitis Esophageal dysphagia Patellar instability of both knees Obesity, morbid, BMI 40.0-49.9 Gastroparesis follows with GI Chronic pain (Acute) Anxiety and depression Dercum's disease Mast cell activation syndrome Port-A-Cath in place per patient>power port Medical History POTS (postural orthostatic tachycardia syndrome) No recent syncope- keeps controlled with high Na diet, magnesium and water intake>FOLLOWED BY DR. GOODE - Gets routine IV influsions via port Chandra disease COVID-19 ED visit 03/30/2023 with COVID sx and positive home test. Admitted 03/30-04/02/23. f/u with PCP 04/07/23 and pt instructed to return to ED 2/2 RLL crackles. Imaging did not show acute PNA. she was tx for UTI. All COVID sx have since resolved. Chronic narcotic dependence follows with Palliative doctor, Dr. Omalley, for pain control. 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 Kadi YOON specialist Surgical History History of esophagogastroduodenoscopy (EGD) 12/13/2022 Gastric peroral endoscopic myotomy at [facility]. 05/23/23 EGD, [facility]: MAC without issue History of removal of retained hardware Left Shoulder History of foot surgery Rt History of mandibular surgery TMJ surgery January 2020 - DECREASED ROM OF MOUTH MILDLY History of colonoscopy History of anesthesia reaction "HARD TO GO TO SLEEP-NEEDS MORE DRUGS-HAS WOKEN UP DURING PROCEDURES" History of laparoscopy X 3 Hx of shoulder surgery RIGHT REPAIR/LEFT X 5 History of hip surgery LEFT LABRUM REPAIR/BALL SHAPENING History of ankle surgery X 3 H/O knee surgery X 5 LEFT, X 11 RIGHT Family History Family/Other Family history of esophageal cancer GREAT GRANDFATHER Father Melanoma Lewy body dementia Cancer Mother Diabetes Hypertension Grandmother (Paternal) Breast cancer Cancer Grandfather (Maternal) Cancer Grandfather (Paternal) Cancer Heart disease Uncle Colorectal cancer Other No family history of adverse response to anesthesia Denies family history of Ovarian cancer Prostate cancer Myocardial infarction Social History Smoking Status: Never smoker Tobacco Type: E-cigarettes / Vaping Cigarettes Per Day: tobacco free e cigarettes/vaping>; Second Hand Exposure: No; Do You Dip or Chew Tobacco: No; Hx Alcohol Use: No Hx Substance Use: No Preferred Language: Romanian Communication Ability: Effective Visual Impairment: No Limitations Hearing Ability: Normal 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 during the past year weight has: increased > 10 lbs Dental Care, Regularly: Yes Physical Activity Frequency: Does not Exercise Seatbelt Use: always Sunscreen Use: Yes Assistive Devices: Cane, Walker and Wheelchair Review of Systems A total of 10 systems reviewed and were otherwise negative Physical Exam Vital Signs Vital Signs - 24 hr 04/09/24 21:49 04/09/24 22:20 04/09/24 23:15 Temperature 36.7 C Temperature Source Temporal Artery Scan Pulse Rate 112 H 94 H Pulse Rate [Apical] Pulse Rhythm Regular Regular Pulse Rhythm [Apical] Pulse Strength Normal Pulse Strength [Apical] Respiratory Rate 20 Respiratory Effort / Characteristics Non-Labored Spontaneous Respiratory Depth Normal Respiratory Pattern Blood Pressure 138/81 Blood Pressure [Right Arm] Blood Pressure Mean 100 Blood Pressure Mean [Right Arm] Blood Pressure Position Sitting Pulse Oximetry 100 Oxygen Delivery Method Room Air Room Air Sepsis Recent Fever Within 48 Hours No Sepsis New/Unexplained Change in Mental Status N/A Sepsis Action Taken by Nursing No Action Required 04/10/24 03:51 Temperature Temperature Source Pulse Rate Pulse Rate [Apical] 94 H Pulse Rhythm Pulse Rhythm [Apical] Regular Pulse Strength Pulse Strength [Apical] Normal Respiratory Rate 16 Respiratory Effort / Characteristics Non-Labored Spontaneous Respiratory Depth Normal Respiratory Pattern Regular Blood Pressure Blood Pressure [Right Arm] 117/79 Blood Pressure Mean Blood Pressure Mean [Right Arm] 91 Blood Pressure Position Pulse Oximetry 99 Oxygen Delivery Method Room Air Sepsis Recent Fever Within 48 Hours Sepsis New/Unexplained Change in Mental Status Sepsis Action Taken by Nursing VITALS: Vitals are noted on the nurse's note and reviewed by myself. Vital signs stable. GENERAL: White female, in no acute distress, nondiaphoretic, well-developed well-nourished. SKIN: The skin was without rashes, erythema, edema, or bruising. There is no tenting of the skin. Capillary reflex less than 2 seconds. HEAD: Normocephalic atraumatic. EARS: External auditory canals clear EYES: Pupils equal round and reactive to light and accommodation. Conjunctivae without injection, sclerae without icterus. Extraocular movements intact. NOSE: Patent, no discharge. MOUTH: Mucous membranes moist. Pharynx without erythema or exudate. Uvula midline. Airway patent. Tongue does not deviate. NECK: Supple without nuchal rigidity. No lymphadenopathy. No thyromegaly. Cervical spine is nontender. No JVD. HEART: Regular rate and rhythm LUNGS: Clear to auscultation bilaterally without wheezes, rales or rhonchi. No retractions or accessory muscle use. ABDOMEN: Positive bowel sounds x 4. Normal tympanic percussion. Soft, tender to palpation mid abdomen, without masses or organomegaly. Ipke sign negative. No guarding or rebound tenderness. No CVA tenderness MUSCULOSKELETAL: No muscle atrophy, erythema, or edema noted. NEURO: Patient was alert and oriented to person place and time. Normal sensation to light and sharp touch. No focal neurological deficits. Course Administered Medications Discontinued Medications Diphenhydramine HCl (Diphenhydramine 50 Mg/Ml Vial) 25 mg IV NOW STA Stop: 04/09/24 23:52 Last Admin: 04/10/24 00:26 Dose: 25 mg Documented By: ZAKI Hydrocortisone Sodium Succinate (Hydrocortisone Sod Succinate 100 Mg/2 Ml Vial) 100 mg IV NOW STA Stop: 04/09/24 22:21 Last Admin: 04/09/24 22:59 Dose: 100 mg Documented By: ZAKI Sodium Chloride (Nss) 1,000 mls @ 999 mls/hr IV .Q1H1M BUZZ Stop: 04/09/24 23:30 Last Infusion: 04/10/24 01:24 Dose: Infused Documented By: Admin: 04/09/24 23:00 Dose: 999 mls/hr Documented By: ZAKI Magnesium Sulfate/Dextrose (Magnesium Sulfate / D5w) 1 gm in 100 mls @ 100 mls/hr IV Q1H BUZZ Stop: 04/10/24 02:23 Last Admin: 04/10/24 03:22 Dose: 100 mls/hr Documented By: Infusion: 04/10/24 03:09 Dose: Infused Documented By: Admin: 04/10/24 01:58 Dose: 100 mls/hr Documented By: ZAKI Ioversol (Optiray 320 100ml) 92 ml IV ONCE ONE Stop: 04/10/24 01:13 Last Admin: 04/10/24 01:13 Dose: 92 ml Documented By: SUJATHA Lorazepam (Lorazepam 1 Mg/1 Ml Syr Ed Inj Use) 1 mg IV ONE STA Stop: 04/10/24 01:19 Last Admin: 04/10/24 03:43 Dose: Not Given Documented By: JONO Metoclopramide HCl (Metoclopramide Hcl Inj 5 Mg/Ml 2 Ml Vial) 10 mg IV NOW STA Stop: 04/10/24 00:24 Last Admin: 04/10/24 01:54 Dose: Not Given Documented By: ZAKI Ondansetron HCl (Ondansetron Inj 2 Mg/Ml 2 Ml Vial) 4 mg IV NOW STA Stop: 04/10/24 01:19 Last Admin: 04/10/24 02:00 Dose: 4 mg Documented By: ZAKI Medical Decision Making Medical Records Attestation: I reviewed the patient's medical records. Home Medications Current Medication List: was personally reviewed by me Laboratory Data Attestation: I reviewed the patient's lab results. 04/09/24 23:11 04/09/24 23:11 Lab Results 04/09/24 04/09/24 04/10/24 Range/Units 23:11 23:11 00:04 WBC 11.90 H (4.8-10.8) K/ul RBC 3.98 L (4.20-5.40) M/uL Hgb 12.3 (12.0-16.0) g/dl Hct 37.7 (37.0-47.0) % MCV 94.7 (80.0-100.0) fL MCH 30.9 (25.0-34.0) pg MCHC 32.6 (32.0-36.0) g/dL RDW Std Deviation 46.5 H (36.4-46.3) fL RDW Coeff of Reynold 13.4 (11.5-14.5) % Plt Count 306 (130-400) K/uL MPV 9.2 L (9.4-12.4) fL Immature Gran % (Auto) 0.3 % Neut % (Auto) 54.9 % Lymph % (Auto) 35.5 % [place] % (Auto) 5.3 % Eos % (Auto) 3.5 % Baso % (Auto) 0.5 % Neut # (Auto) 6.52 H (1.40-6.50) K/uL Lymph # (Auto) 4.23 H (1.20-3.40) K/uL [place] # (Auto) 0.63 H (0.11-0.59) K/uL Eos # (Auto) 0.42 (0.00-0.50) K/uL Baso # (Auto) 0.06 (0.00-0.20) K/uL Immature Gran # (Auto) 0.04 (0.01-0.20) K/uL Sodium 138 (136-145) mmol/L Potassium 3.9 (3.5-5.1) mmol/L Chloride 106 (98-107) mmol/L Carbon Dioxide 25 (21-32) mmol/L Anion Gap 7 (3-11) BUN 14 (6-23) mg/dl Creatinine 1.23 H (0.6-1.2) mg/dl Est Cr Clr Drug Dosing 84.4 ml/min Est GFR ( Amer) 64.9 ml/min Est GFR (Non-Af Amer) 56.0 ml/min BUN/Creatinine Ratio 11.4 (10-20) Glucose 83 (70-99(Fasting)) mg/dl Lactate 1.1 (0.4-2.0) mmol/L Calcium 9.2 (8.6-10.3) mg/dl Magnesium 1.6 L (1.7-2.4) mg/dl Total Bilirubin 0.2 (0.2-1.0) mg/dl AST 17 (13-39) U/L ALT 32 (7-52) U/L Alkaline Phosphatase 99 (34-104) U/L Total Creatine Kinase 37 (26-192) U/L Troponin I High Sens 12.2 Cancelled (0-14) pg/ml Total Protein 7.0 (6.0-8.3) gm/dl Albumin 3.8 (3.4-5.0) gm/dl Globulin 3.2 (2.5-4.0) gm/dl Albumin/Globulin Ratio 1.2 (0.9-2) TSH 3.656 (0.300-4.500) uIu/ml HCG, Qual Negative (Negative) Urine Color Urine Appearance (Clear) Urine pH (4.5-7.5) Ur Specific [place] (1.000-1.030) Urine Protein (Negative) Urine Glucose (UA) (Negative) Urine Ketones (Negative) Urine Blood (Negative) Urine Nitrite (Negative) Urine Bilirubin (Negative) Urine Urobilinogen (Negative) Ur Leukocyte Esterase (Negative) Urine WBC (Auto) (0-5) /hpf Urine RBC (Auto) (0-2) /hpf U Hyaline Cast (Auto) (0-2) /lpf U Epithel Cells (Auto) (0-2) /hpf Urine Bacteria (Auto) (None Seen) 04/10/24 Range/Units 00:46 WBC (4.8-10.8) K/ul RBC (4.20-5.40) M/uL Hgb (12.0-16.0) g/dl Hct (37.0-47.0) % MCV (80.0-100.0) fL MCH (25.0-34.0) pg MCHC (32.0-36.0) g/dL RDW Std Deviation (36.4-46.3) fL RDW Coeff of Reynold (11.5-14.5) % Plt Count (130-400) K/uL MPV (9.4-12.4) fL Immature Gran % (Auto) % Neut % (Auto) % Lymph % (Auto) % [place] % (Auto) % Eos % (Auto) % Baso % (Auto) % Neut # (Auto) (1.40-6.50) K/uL Lymph # (Auto) (1.20-3.40) K/uL [place] # (Auto) (0.11-0.59) K/uL Eos # (Auto) (0.00-0.50) K/uL Baso # (Auto) (0.00-0.20) K/uL Immature Gran # (Auto) (0.01-0.20) K/uL Sodium (136-145) mmol/L Potassium (3.5-5.1) mmol/L Chloride (98-107) mmol/L Carbon Dioxide (21-32) mmol/L Anion Gap (3-11) BUN (6-23) mg/dl Creatinine (0.6-1.2) mg/dl Est Cr Clr Drug Dosing ml/min Est GFR ( Amer) ml/min Est GFR (Non-Af Amer) ml/min BUN/Creatinine Ratio (10-20) Glucose (70-99(Fasting)) mg/dl Lactate (0.4-2.0) mmol/L Calcium (8.6-10.3) mg/dl Magnesium (1.7-2.4) mg/dl Total Bilirubin (0.2-1.0) mg/dl AST (13-39) U/L ALT (7-52) U/L Alkaline Phosphatase (34-104) U/L Total Creatine Kinase (26-192) U/L Troponin I High Sens (0-14) pg/ml Total Protein (6.0-8.3) gm/dl Albumin (3.4-5.0) gm/dl Globulin (2.5-4.0) gm/dl Albumin/Globulin Ratio (0.9-2) TSH (0.300-4.500) uIu/ml HCG, Qual (Negative) Urine Color Yellow Urine Appearance Clear (Clear) Urine pH 6.5 (4.5-7.5) Ur Specific [place] 1.008 (1.000-1.030) Urine Protein Negative (Negative) Urine Glucose (UA) Negative (Negative) Urine Ketones Negative (Negative) Urine Blood Negative (Negative) Urine Nitrite Negative (Negative) Urine Bilirubin Negative (Negative) Urine Urobilinogen Negative (Negative) Ur Leukocyte Esterase 3+ H (Negative) Urine WBC (Auto) 6-10 H (0-5) /hpf Urine RBC (Auto) 0-2 (0-2) /hpf U Hyaline Cast (Auto) 0-2 (0-2) /lpf U Epithel Cells (Auto) 3-5 H (0-2) /hpf Urine Bacteria (Auto) None Seen (None Seen) Imaging Data Attestation: I personally reviewed and interpreted this imaging study as follows: Radiologist's Impression: Abdomen/Pelvis CT 04/09/24 23:51 Exam(s): CT ABDOMEN + PELVIS With Contrast IV Amt: 92 ml opti 320 EXAM: CT Abdomen and Pelvis With Intravenous Contrast CLINICAL HISTORY: Reason for exam: mid abd pain. TECHNIQUE: Axial computed tomography images of the abdomen and pelvis with intravenous contrast. CTDI is 28.28 mGy and DLP is 1380.68 mGy-cm. Automated exposure control was utilized for the study. A dose lowering technique was utilized adhering to the principles of ALARA. CONTRAST: Patient received 92 ml opti 320 of IV contrast COMPARISON: CT abdomen/pelvis on 06/02/2023 FINDINGS: Lung bases: Unremarkable. No mass. No consolidation. ABDOMEN: Liver: Hepatic steatosis. Hepatomegaly. Gallbladder and bile ducts: Hyperdense material in the gallbladder may represent artifact versus stones/sludge. No ductal dilation. Pancreas: Unremarkable. No mass. No ductal dilation. Spleen: Unremarkable. No splenomegaly. Adrenals: Unremarkable. No mass. Kidneys and ureters: Unremarkable. No hydronephrosis or obstructing ureteral stone. Stomach and bowel: Evaluation of the stomach is limited by under distention. No mucosal thickening. No bowel obstruction or inflammation. PELVIS: Appendix: Appendix is not definitely visualized on this exam. Bladder: Mild prominence of the bladder wall may be secondary to underdistention. Please correlate with urinalysis if concerned for cystitis. Reproductive: Unremarkable as visualized. ABDOMEN and PELVIS: Intraperitoneal space: Unremarkable. No free air. No significant fluid collection. Bones/joints: No acute fracture. No dislocation. Soft tissues: Tiny fat-containing umbilical hernia. Vasculature: Unremarkable. No abdominal aortic aneurysm. Lymph nodes: Unremarkable. No enlarged lymph nodes. Tubes, lines and devices: Intrauterine device in place. IMPRESSION: 1. Mild prominence of the bladder wall may be secondary to underdistention. Please correlate with urinalysis if concerned for cystitis. 2. Hyperdense material in the gallbladder may represent artifact versus stones/sludge. Electronically signed by: Rell Du M.D. 04/10/24 02:15 AM MDM Narrative Prior records/ancillary studies reviewed and summarized above. Nursing notes reviewed. Additional history obtained from nursing The patient's history was concerning for increasing weakness, body aches and pains not feeling well and abdominal pain in a person with adrenal insufficiency. Differential diagnosis: Etiologies such as adrenal insufficiency crisis, metabolic, infection, hypo/hyperglycemia, electrolyte abnormalities, cardiac sources, intracerebral event, toxicologic, neurologic, as well as others were entertained. Physical examination: As above. ER treatment provided: IV Lock An order was placed for continuous cardiac monitoring. The monitor shows a rate of 60-100 with a sinus rhythm per my interpretation. Hydrocortef, IV fluids, magnesium On reassessment the patient felt better. Diagnostics interpretation by me: ECG: Ordered for weakness EKG: Normal sinus, normal intervals, no acute ST-T wave changes. Impression normal sinus rhythm independently interpreted by myself The labs Independently Interpreted by myself revealed mild leukocytosis, low magnesium Urine concerning for infection sent for culture. No prior culture for review Imaging studies: Chest x-ray with no acute consolidation, pneumothorax or free air per my independent interpretation CT was reviewed and read by radiology as above Consultation: A consultation was placed with the hospitalist. The case was discussed and diagnostics were reviewed. The patient was evaluated in the ER for further treatment. Exam and history seem consistent with reported adrenal insufficiency with weakness and UTI. Imaging was negative. Medicine was consulted and the case was discussed. She will be admitted to the medical service. She was given a stress dose of steroids. No reaction. Electrolytes were replaced. By the evaluation outlined above emergent etiologies such as cardiac sources, intracerebral event, toxologic, abnormalities blood glucose, metabolic, as well as others were deemed relatively unlikely. The pt informed about the findings as listed above. All questions were answered and pleased with the treatment. The chart was completed utilizing [employer] Speech voice recognition software. Grammatical errors, random word insertions, pronoun errors, and incomplete sentences are an occassional consequence of this system due to software limitations, ambient noise, and hardware issues. Any formal questions or concerns about the content, text, or information contained within the body of this dictation should be directly addressed to the physician engineer second assistant for clarification. Impression & Plan Weakness, Hypomagnesemia, Acute UTI Discharge Plan Visit Data Chief Complaint: Illness Stated Complaint: ALLERGIC REACTION,BALANCE ISSUES,VISUAL ISSUES ED Provider: Jamal Schwartz ED Midlevel Provider: Florence Duncan Discharge Problem: Weakness, Hypomagnesemia, Acute UTI Patient Disposition: Admitted As Inpatient Condition: Good Forms Stand Alone Forms: [employer] Prescriptions Prescriptions: No Action (DME) IV admin extension set 60 " infusion set See Rx Instructions .Route Rx Instructions: USE ONCE EVERY OTHER DAY DIRECTED WITH SALINE INFUSION. (DME) IV admin extension set Infusion Set See Rx Instructions .Route Qty: 1 8RF Rx Instructions: IV admin extension set 60". Use once every other day as directed with saline infusion naloxone [Narcan] 4 mg/actuation spray,non-aerosol 4 mg intranasal Q2M PRN (Reason: opioid overdose) Qty: 2 0RF Rx Instructions: spray 1 dose into ONE nostril; alternate nostrils w each dose until help arrives esomeprazole magnesium 40 mg capsule,delayed release(DR/EC) 40 mg PO BID Qty: 180 3RF Rx Instructions: TAKE 1 CAPSULE BY MOUTH TWICE A DAY spironolactone 50 mg tablet 50 mg PO QAM Qty: 90 1RF hydroxyzine HCl 25 mg tablet See Rx Instructions .ROUTE .COMPLEX Qty: 90 11RF Dose Instruction: TAKE 1 TO 3 TABLETS BY MOUTH AT BEDTIME NEEDED FOR HIVES OR ALLERGIC REACTIONS Rx Instructions: TAKE 1 TO 3 TABLETS BY MOUTH AT BEDTIME NEEDED FOR HIVES OR ALLERGIC REACTIONS ergocalciferol (vitamin D2) 1,250 mcg (50,000 unit) capsule 1,250 mcg PO WK Qty: 14 3RF Rx Instructions: sundays morphine 15 mg tablet 7.5 mg PO BID PRN (Reason: severe breakthrough pain) Qty: 3 0RF Low Dose Naltrexone 4.5 mg PO DAILY Qty: 90 3RF Xolair 150 mg/mL syringe 300 mg subcut .COMPLEX Qty: 4 11RF Rx Instructions: INJECT 300 mg subcutaneously EVERY 2 WEEKS. PT TO SELF ADMINISTER AT HOME APPROVED Good 09/08/23-11/05/24 diphenhydramine HCl [Benadryl Allergy] 25 mg tablet 25 mg PO TID PRN (Reason: allergy symptoms) Qty: 10 0RF meloxicam 7.5 mg tablet 7.5 mg PO BID Qty: 180 0RF Hold Instructions: did not start yet Patient Comments: has not yet started 06/23/23 levothyroxine [Tirosint] 125 mcg capsule 125 mcg PO DAILY Qty: 30 2RF Rx Instructions: pl give Tirosint only as patient does not respond to levothyroxine ascorbic acid (vitamin C) 1,000 mg tablet 1 g PO BID ondansetron 8 mg tablet,disintegrating 8 mg PO Q8H PRN (Reason: nausea and vomiting) Qty: 90 3RF carbidopa-levodopa 25-100 mg tablet 1 tab PO BID cromolyn 100 mg/5 mL concentrate 200 mg PO QID Kyleena 17.5 mcg/24 hrs (5 yrs) 19.5 mg intrauterine device 1 device intrauterine CONT Rx Instructions: PT STATES THAT SHE HAS BOTH KYLEENA AND NUVARING- PLEASE DO NOT REMOVE olopatadine [Patanase] 0.6 % spray,non-aerosol 2 spray intranasal BID Qty: 30.5 11RF Rx Instructions: administer into each nostril epinephrine [EpiPen 2-Marlo] 0.3 mg/0.3 mL auto-injector 0.3 mg IM Q4H PRN (Reason: anaphylaxis) Qty: 2 3RF montelukast [Singulair] 10 mg tablet 10 mg PO QPM Qty: 90 3RF KETOTIFEN 2 mg PO DAILY Patient Comments: eye drop formulated to oral medication Nurtec ODT 75 mg tablet,disintegrating 75 mg PO UD PRN (Reason: Migraine Headache) Qty: 8 4RF Rx Instructions: 75 mg PO Take one tablet once a day as needed for migraine, max one dose per 24 hours, limit dosing to 2-3 times per week; lemborexant 5 mg tablet 10 mg PO HS loratadine [Claritin] 10 mg tablet 10 mg PO BID cyclobenzaprine 10 mg tablet 20 mg PO QAM Qty: 180 3RF pyridostigmine bromide 60 mg tablet 60 mg PO BID Qty: 60 11RF famotidine 40 mg tablet 40 mg PO BID Qty: 180 3RF midodrine 5 mg tablet 5 mg PO TID Qty: 90 5RF Rx Instructions: do not give last dose of day after 6PM or within 4 hrs of bedtime tizanidine 2 mg tablet 2 mg PO HS morphine 15 mg tablet extended release 15 mg PO BID Qty: 60 0RF etonogestrel-ethinyl estradiol [EluRyng] 0.12-0.015 mg/24 hr ring 1 vag ring VAGINAL MONTHLY Rx Instructions: Friday OF liothyronine [Cytomel] 5 mcg tablet 5 mcg PO 3XWK Patient Comments: m/w/f Rx Instructions: friday,friday,friday melatonin 10 mg Tablet 10 mg PO HS Magnesium Sulfate In Lac Ring 2 g IV DIRECTED Rx Instructions: Weekly, over 1 hour amoxicillin 500 mg tablet 2,000 mg PO ONCE PRN (Reason: Other) Rx Instructions: Take 4 tablets 1 hour before dental procedure cyanocobalamin (vitamin B-12) 1,000 mcg/mL solution 1,000 mcg IM .EVERY 14 DAYS Rx Instructions: sundays lactated Ringers Parenteral Solution 1 ea IV .COMPLEX Rx Instructions: 1 ea intravenously QOD ; 1 liter alprazolam 2 mg tablet,disintegrating 2 mg PO TID PRN (Reason: Anxiety) colesevelam [WelChol] 625 mg tablet 1,250 mg PO DAILY Patient Comments: not currently taking 06/23/23 magnesium glycinate 480 mg PO HS Referrals Referrals: Linus Ashley III, DO [Primary Care Provider] -
[2024-04-10 00:03] LABS: Albumin Globulin Ratio 1.2 (0.9-2); Albumin Level 3.8 gm/dl (3.4-5.0); BUN Creatinine Ratio 11.4 (10-20); Bilirubin,Total 0.2 mg/dl (0.2-1.0); Calcium 9.2 mg/dl (8.6-10.3); Creatinine Clr Calc Pharmacy 84.4 ml/min; Est GFR (African American) 64.9 ml/min; Globulin 3.2 gm/dl (2.5-4.0); Magnesium 1.6 mg/dl (1.7-2.4); Potassium 3.9 mmol/L (3.5-5.1)
[2024-04-10 00:10] LABS: Troponin I High Sensitivity 12.2 pg/ml (0-14)
[2024-04-10 00:19] LABS: Thyroid Stimulating Hormone 3.656 uIu/ml (0.300-4.500)
[2024-04-10] MEDS: diphenhydrAMINE 50 MG/ML VIAL IV STA (00:26)
[2024-04-10] MEDS: OPTIRAY 320 100ml IV ONE (01:13)
[2024-04-10] MEDS: METOCLOPRAMIDE HCL INJ 5 MG/ML 2 ML VIAL IV STA (01:54)
[2024-04-10] MEDS: MAGNESIUM SULFATE / D5W 1 GM/100 ML BAG IV SCH ×2 (01:58→11:38)
[2024-04-10] MEDS: ONDANSETRON INJ 2 MG/ML 2 ML VIAL IV STA (02:00)
--- NOTE | 2024-04-10 02:16 | CT Scan Report ---
Exam(s): CT ABDOMEN + PELVIS With Contrast IV Amt: 92 ml opti 320 EXAM: CT Abdomen and Pelvis With Intravenous Contrast CLINICAL HISTORY: Reason for exam: mid abd pain. TECHNIQUE: Axial computed tomography images of the abdomen and pelvis with intravenous contrast. CTDI is 28.28 mGy and DLP is 1380.68 mGy-cm. Automated exposure control was utilized for the study. A dose lowering technique was utilized adhering to the principles of ALARA. CONTRAST: Patient received 92 ml opti 320 of IV contrast COMPARISON: CT abdomen/pelvis on 06/02/2023 FINDINGS: Lung bases: Unremarkable. No mass. No consolidation. ABDOMEN: Liver: Hepatic steatosis. Hepatomegaly. Gallbladder and bile ducts: Hyperdense material in the gallbladder may represent artifact versus stones/sludge. No ductal dilation. Pancreas: Unremarkable. No mass. No ductal dilation. Spleen: Unremarkable. No splenomegaly. Adrenals: Unremarkable. No mass. Kidneys and ureters: Unremarkable. No hydronephrosis or obstructing ureteral stone. Stomach and bowel: Evaluation of the stomach is limited by under distention. No mucosal thickening. No bowel obstruction or inflammation. PELVIS: Appendix: Appendix is not definitely visualized on this exam. Bladder: Mild prominence of the bladder wall may be secondary to underdistention. Please correlate with urinalysis if concerned for cystitis. Reproductive: Unremarkable as visualized. ABDOMEN and PELVIS: Intraperitoneal space: Unremarkable. No free air. No significant fluid collection. Bones/joints: No acute fracture. No dislocation. Soft tissues: Tiny fat-containing umbilical hernia. Vasculature: Unremarkable. No abdominal aortic aneurysm. Lymph nodes: Unremarkable. No enlarged lymph nodes. Tubes, lines and devices: Intrauterine device in place. IMPRESSION: 1. Mild prominence of the bladder wall may be secondary to underdistention. Please correlate with urinalysis if concerned for cystitis. 2. Hyperdense material in the gallbladder may represent artifact versus stones/sludge. Electronically signed by: Rell Du M.D. 04/10/24 02:15 AM
[2024-04-10 03:37] LABS: Appearance Urine Clear (Clear); Bacteria Urine Automated None Seen (None Seen); Bilirubin Urine Negative (Negative); Blood Urine Negative (Negative); Cast Urine Automated 0-2 /lpf (0-2); Color Urine Yellow; Glucose Urine UA Negative (Negative); Ketones Urine Negative (Negative); Leukocyte Esterase Urine 3+ (Negative); Nitrite Urine Negative (Negative); Protein Urine Negative (Negative); RBC Urine Automated 0-2 /hpf (0-2); Specific Gravity Urine 1.008 (1.000-1.030); Urobilinogen Urine Negative (Negative); pH Urine 6.5 (4.5-7.5)
[2024-04-10] MEDS: LORazepam 1 MG/1 ML SYR ED Inj Use IV STA (03:43)
--- NOTE | 2024-04-10 03:48 | History & Physical Report ---
Date of Service April 10, 2024 Assessment & Plan (1) Gisele-Danlos syndrome: (2) Adrenal insufficiency: (3) Chronic venous insufficiency: (4) Chronic diarrhea: (5) GERD (gastroesophageal reflux disease): (6) Hypothyroidism: (7) Lymphocytic colitis: (8) Gastroparesis: (9) Anxiety and depression: Plan Adrenal insufficiency/Gisele-Danlos syndrome- Primary symptom for being here is that of fatigue and likely adrenal insufficiency- Hydrocortisone 100 mg IV every 8 hours and Follow response Continue other routine medications for Gisele-Danlos NSS with KCL20 MEQ at 80 ml/hr x 1 liter Hypomagnesemia- Magnesium 1.6 on admission Give 2 g mag sulfate IV recheck laboratories in a.m. GERD/chronic biliary emesis/chronic gallbladder dysfunction/gastroparesis- Patient has had significant workup in the past, including during hospitalization from 01/07-01/11/2024 Continue cholestyramine If recurrent symptoms can have her be seen by GI Continue chronic pain medications morphine sulfate. Continue Narcan Hold meloxicam History of Present Illness Chief Complaint: The patient presents to the emergency department with concerns regarding recurrence of adrenal insufficiency, associated with generalized weakness and fatigue. She also has had issues intermittently with abdominal pain biliary emesis, with having had a negative workup in the past for surgical assessment of gallbladder disease, and does get intermittent relief with bile acid binding resins such as cholestyramine. She reports that she also thinks she had an allergic reaction to oral steroids, as she noted that her face became more full after 4 to 5 days of being on steroids. That being said, she reports that she tolerates IV steroids without a problem Primary Care Provider: Linus Ashley, III, DO Patient is a 39-year-old female with past medical history including Gisele- Danlos syndrome, adrenal insufficiency, lower extremity edema, obesity, chronic venous insufficiency, chronic diarrhea, chronic biliary emesis, migraine without aura, GERD, hypothyroidism, CKD stage III, B12 deficiency, osteogenesis imperfecta, lymphocytic colitis, Port-A-Cath in right upper chest, mast cell activation syndrome, anxiety and depression, and gastroparesis. The patient presents to the emergency department with 3 main symptoms as noted above. Allergies Allergy/AdvReac Type Severity Reaction Status Date / Time banana Allergy Severe tongue Verified 03/23/24 15:55 numbness honeydew Allergy Severe tongue Verified 03/23/24 15:55 numbness iodine Allergy Severe blisters Verified 03/23/24 15:55 on contact area peanut Allergy Severe Anaphylaxis Verified 03/23/24 15:55 adhesive Allergy Intermediate SKIN Verified 03/23/24 15:55 IRRITATION WITH TAPES cantaloupe Allergy Intermediate tongue Verified 03/23/24 15:55 numbness COVID-19 vaccine, mRNA, Allergy Intermediate HIVES, Verified 03/23/24 15:55 [id number], L BIVALENT PFIZER VACCINE gabapentin Allergy Intermediate TONGUE Verified 03/23/24 15:55 SWELLING, RASH hydrocortisone Allergy Intermediate Swelling Verified 03/23/24 15:55 of Lip/Tongue/Throat Milk Containing Products Allergy Intermediate blood in Verified 03/23/24 15:55 (Dairy) stool shellfish derived Allergy Intermediate mouth Verified 03/23/24 15:55 blisters; "bad" gi upset chlorhexidine Allergy Mild RASH WITH Verified 03/23/24 15:55 SCENTED ONLY latex Allergy Mild LIPS NUMB Verified 03/23/24 15:55 BLOWING UP A BALLOON nickel Allergy Mild Rash Verified 03/23/24 15:55 casein Allergy Unknown Unknown Verified 03/23/24 15:55 Sutures Allergy "DISSOLVEABLE" Verified 03/23/24 15:55 = body will reject apple AdvReac Mild Gastrointestinal Verified 03/23/24 15:55 Upset burton AdvReac Mild Gastrointestinal Verified 03/23/24 15:55 Upset carrot AdvReac Mild Gastrointestinal Verified 03/23/24 15:55 Upset corn AdvReac Mild Gastrointestinal Verified 03/23/24 15:55 Upset melon AdvReac Mild Gastrointestinal Verified 03/23/24 15:55 Upset soy AdvReac Mild Gastrointestinal Verified 03/23/24 15:55 Upset tomato AdvReac Mild Gastrointestinal Verified 03/23/24 15:55 Upset tree nut AdvReac Mild Gastrointestinal Verified 03/23/24 15:55 Upset wheat AdvReac Mild Gastrointestinal Verified 03/23/24 15:55 Upset Home Medications Medication Instructions Recorded Confirmed Type etonogestrel 0.12 mg-ethinyl 1 vag ring vaginal MONTHLY 02/04/21 03/23/24 History estradiol 0.015 mg/24 hr vaginal ring (EluRyng) loratadine 10 mg tablet (Claritin) 10 mg PO BID 02/06/21 03/23/24 History ascorbic acid (vitamin C) 1,000 mg 1 g PO BID 01/29/22 03/23/24 History tablet ondansetron 8 mg disintegrating 8 mg PO Q8H PRN nausea and 02/14/22 03/23/24 Rx tablet vomiting #90 tabs amoxicillin 500 mg tablet 2,000 mg PO ONCE PRN Other 02/26/22 03/23/24 History IV admin extension set 60" 06/12/22 03/23/24 History epinephrine 0.3 mg/0.3 mL 0.3 mg (0.3 mL) IM Q4H PRN 07/15/22 03/23/24 Rx injection, auto-injector (EpiPen anaphylaxis #2 ea 2-Marlo) olopatadine 0.6 % nasal spray 2 spray intranasal BID #30.5 grams 07/15/22 03/23/24 Rx (Patanase) IV admin extension set #1 ea 07/17/22 03/23/24 Rx liothyronine 5 mcg tablet (Cytomel) 5 mcg PO 3XWK 08/20/22 03/23/24 History levonorgestrel 17.5 mcg/24 hr (up 1 device intrauterine CONT 11/15/22 03/23/24 History to 5 yrs) 19.5mg intrauterine device (Kyleena) cyanocobalamin (vitamin B-12) 1,000 mcg IM .EVERY 14 DAYS 12/10/22 03/23/24 History 1,000 mcg/mL injection solution naloxone 4 mg/actuation nasal 4 mg intranasal Q2M PRN opioid 01/03/23 03/23/24 Rx spray (Narcan) overdose #2 ea lactated Ringers 1 ea IV .COMPLEX 01/09/23 03/23/24 History cyclobenzaprine 10 mg tablet 20 mg (2 x 10 mg) PO QAM #180 tabs 03/21/23 03/23/24 Rx Magnesium Sulfate In Lac Ring 2 g IV DIRECTED 03/30/23 03/23/24 History melatonin 10 mg tablet 10 mg PO HS 03/30/23 03/23/24 History carbidopa 25 mg-levodopa 100 mg 1 tab PO BID 04/15/23 03/23/24 History tablet cromolyn 100 mg/5 mL oral 200 mg PO QID 04/15/23 03/23/24 History concentrate alprazolam 2 mg disintegrating 2 mg PO TID PRN Anxiety 06/03/23 03/23/24 History tablet colesevelam 625 mg tablet (WelChol) 1,250 mg PO DAILY 06/03/23 03/23/24 History magnesium glycinate 480 mg PO HS 06/03/23 03/23/24 History famotidine 40 mg tablet 40 mg PO BID #180 tabs 09/25/23 03/23/24 Rx pyridostigmine bromide 60 mg tablet 60 mg PO BID #60 tabs 09/25/23 03/23/24 Rx esomeprazole magnesium 40 mg 40 mg PO BID #180 caps 10/21/23 03/23/24 Rx capsule,delayed release spironolactone 50 mg tablet 50 mg PO QAM #90 tabs 11/18/23 03/23/24 Rx hydroxyzine HCl 25 mg tablet See Rx Instructions .Route 11/24/23 03/23/24 Rx .COMPLEX #90 tabs ergocalciferol (vitamin D2) 1,250 1,250 mcg PO WK #14 caps 12/30/23 03/23/24 Rx mcg (50,000 unit) capsule morphine 15 mg immediate release 7.5 mg (1/2 x 15 mg) PO BID PRN 01/05/24 03/23/24 Rx tablet severe breakthrough pain #3 tabs tizanidine 2 mg tablet 2 mg PO HS muscle spasticity 01/06/24 03/23/24 History morphine 15 mg tablet,extended 15 mg PO BID #60 tabs 01/17/24 03/23/24 Rx release montelukast 10 mg tablet 10 mg PO QPM #90 tabs 01/23/24 03/23/24 Rx (Singulair) KETOTIFEN 2 mg PO DAILY 01/24/24 03/23/24 History rimegepant 75 mg disintegrating 75 mg PO UD PRN Migraine Headache 01/26/24 03/23/24 Rx tablet (Nurtec ODT) #8 tabs Low Dose Naltrexone 4.5 mg PO DAILY #90 tabs 01/27/24 03/23/24 Rx omalizumab 150 mg/mL subcutaneous 300 mg (2 mL) subcut .COMPLEX #4 mL 01/28/24 03/23/24 Rx syringe (Xolair) diphenhydramine HCl 25 mg tablet 25 mg PO TID PRN allergy symptoms 02/11/24 03/23/24 Rx (Benadryl Allergy) #10 tabs meloxicam 7.5 mg tablet 7.5 mg PO BID #180 tabs 02/20/24 03/23/24 Rx lemborexant 5 mg tablet 10 mg PO HS 03/01/24 03/23/24 History Tirosint 125 mcg capsule 125 mcg PO DAILY #30 caps 03/09/24 03/23/24 Rx (levothyroxine) midodrine 5 mg tablet 5 mg PO TID Other #90 tabs 03/24/24 03/24/24 Rx Past Med/Surg History Problem List Acute UTI (Acute) Hypomagnesemia (Acute) Weakness (Acute) Gisele-Danlos syndrome Adrenal insufficiency Bilateral edema of lower extremity (Acute) Osteoarthritis of right patellofemoral joint Obesity (BMI 30-39.9) Fatigue (Acute) Recurrent right knee instability History of arthroscopy of right knee Chronic venous insufficiency follows with Cardiology; per 03/2023 note, likely multifactorial; recommending more routine use of compression stockings Chronic diarrhea follows with GI Migraine without aura, not intractable, without status migrainosus Morbid obesity Right knee pain Cramps of lower extremity (Acute) Hypothyroidism GERD (gastroesophageal reflux disease) Atlantoaxial instability Shoulder joint instability Cervical spine instability Gisele-Danlos syndrome (Acute) Instability of left shoulder joint Lipedema Median arcuate ligament syndrome Elevated serum creatinine Insomnia secondary to chronic pain Hypomagnesemia (Acute) Iron deficiency Vitamin B12 deficiency Edema Osteogenesis imperfecta Urticaria Lymphocytic colitis Esophageal dysphagia Patellar instability of both knees Obesity, morbid, BMI 40.0-49.9 Gastroparesis follows with GI Chronic pain (Acute) Anxiety and depression Dercum's disease Mast cell activation syndrome Port-A-Cath in place per patient>power port Medical History POTS (postural orthostatic tachycardia syndrome) No recent syncope- keeps controlled with high Na diet, magnesium and water intake>FOLLOWED BY DR. GOODE - Gets routine IV influsions via port Chandra disease COVID-19 ED visit 03/30/2023 with COVID sx and positive home test. Admitted 03/30-04/02/23. f/u with PCP 04/07/23 and pt instructed to return to ED 2/2 RLL crackles. Imaging did not show acute PNA. she was tx for UTI. All COVID sx have since resolved. Chronic narcotic dependence follows with Palliative doctor, Dr. Omalley, for pain control. 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 Goode no cardiac valve issues noted on 06/2022 ECHO Asthma Allergy induced- well controlled - no inhalers needed recently Gisele-Danlos syndrome DX'ED 2008- TYPE 7-A- JOINT PAIN/HX MULTIPLE JOINT DISLOCATIONS Follows with Dr. Wallis EDS specialist Surgical History History of esophagogastroduodenoscopy (EGD) 12/13/2022 Gastric peroral endoscopic myotomy at [facility]. 05/23/23 EGD, [facility]: MAC without issue History of removal of retained hardware Left Shoulder History of foot surgery Rt History of mandibular surgery TMJ surgery January 2020 - DECREASED ROM OF MOUTH MILDLY History of colonoscopy History of anesthesia reaction "HARD TO GO TO SLEEP-NEEDS MORE DRUGS-HAS WOKEN UP DURING PROCEDURES" History of laparoscopy X 3 Hx of shoulder surgery RIGHT REPAIR/LEFT X 5 History of hip surgery LEFT LABRUM REPAIR/BALL SHAPENING History of ankle surgery X 3 H/O knee surgery X 5 LEFT, X 11 RIGHT Family History Family/Other Family history of esophageal cancer GREAT GRANDFATHER Father Melanoma Lewy body dementia Cancer Mother Diabetes Hypertension Grandmother (Paternal) Breast cancer Cancer Grandfather (Maternal) Cancer Grandfather (Paternal) Cancer Heart disease Uncle Colorectal cancer Other No family history of adverse response to anesthesia Denies family history of Ovarian cancer Prostate cancer Myocardial infarction Social History Smoking Status: Never smoker Tobacco Type: E-cigarettes / Vaping Cigarettes Per Day: tobacco free e cigarettes/vaping>; Second Hand Exposure: No; Do You Dip or Chew Tobacco: No; Hx Alcohol Use: No Hx Substance Use: No Preferred Language: Slovak Communication Ability: Effective Visual Impairment: No Limitations Hearing Ability: Normal 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 during the past year weight has: increased > 10 lbs Dental Care, Regularly: Yes Physical Activity Frequency: Does not Exercise Seatbelt Use: always Sunscreen Use: Yes Assistive Devices: Cane, Contacts and Glasses Review of Systems Review of Systems: The patient denies chest pain, palpitations, shortness of breath, dyspnea on exertion, cough, lower extremity swelling, sore throat, fevers, chills, sweats, weight change, fatigue, blood in urine or stool, dysuria, urinary frequency or urgency, lightheadedness, dizziness, headache, memory loss, loss of consciousness, rash, abnormal bruising or bleeding, imbalance, focal weakness, numbness or tingling in arms or legs, back or neck pain, or night sweats. The review of systems is otherwise negative other than for that already noted above, and at least 10 systems have been reviewed. Physical Exam Physical Exam: The patient is awake, alert and oriented 3, well developed and well nourished, normocephalic and atraumatic, lying in bed and in no acute distress. HEENT--PERRL, EOMI, mucous membranes and oropharynx dry. Neck--supple. No JVD. No bruits. Thyroid normal, trachea midline, no adenopathy. Heart--normal S1 and S2. No murmurs, rubs or gallops. Lungs--clear bilaterally, no respiratory distress, no accessory muscle use. Abdomen--normal bowel sounds and soft. Nontender. Nondistended, no hernias or masses, no organomegaly. Extremities--No edema. There are good distal pulses b/l. Dermatologic--normal skin turgor, normal color, no abnormal lymph nodes, no rash. Neurologic--cranial nerves II through XII grossly intact. Rheumatologic--normal range of motion. Psychiatric--normal affect. Results & Data Results & Data Vital Signs (Past 12 Hours) Vital Signs Temp Pulse Resp BP Pulse Ox O2 Del Method 04/09/24 23:15 94 H 04/09/24 22:20 Room Air 04/09/24 21:49 36.7 C 112 H 20 138/81 100 Room Air Laboratory Results Laboratory Results WBC 11.90 K/ul (4.8-10.8) H 04/09/24 23:11 RBC 3.98 M/uL (4.20-5.40) L 04/09/24 23:11 Hgb 12.3 g/dl (12.0-16.0) 04/09/24 23:11 Hct 37.7 % (37.0-47.0) 04/09/24 23:11 MCV 94.7 fL (80.0-100.0) 04/09/24 23:11 MCH 30.9 pg (25.0-34.0) 04/09/24 23:11 MCHC 32.6 g/dL (32.0-36.0) 04/09/24 23:11 RDW Std Deviation 46.5 fL (36.4-46.3) H 04/09/24 23:11 RDW Coeff of Reynold 13.4 % (11.5-14.5) 04/09/24 23:11 Plt Count 306 K/uL (130-400) 04/09/24 23:11 MPV 9.2 fL (9.4-12.4) L 04/09/24 23:11 Immature Gran % (Auto) 0.3 % 04/09/24 23:11 Neut % (Auto) 54.9 % 04/09/24 23:11 Lymph % (Auto) 35.5 % 04/09/24 23:11 [place] % (Auto) 5.3 % 04/09/24 23:11 Eos % (Auto) 3.5 % 04/09/24 23:11 Baso % (Auto) 0.5 % 04/09/24 23:11 Neut # (Auto) 6.52 K/uL (1.40-6.50) H 04/09/24 23:11 Lymph # (Auto) 4.23 K/uL (1.20-3.40) H 04/09/24 23:11 [place] # (Auto) 0.63 K/uL (0.11-0.59) H 04/09/24 23:11 Eos # (Auto) 0.42 K/uL (0.00-0.50) 04/09/24 23:11 Baso # (Auto) 0.06 K/uL (0.00-0.20) 04/09/24 23:11 Immature Gran # (Auto) 0.04 K/uL (0.01-0.20) 04/09/24 23:11 Sodium 138 mmol/L (136-145) 04/09/24 23:11 Potassium 3.9 mmol/L (3.5-5.1) 04/09/24 23:11 Chloride 106 mmol/L (98-107) 04/09/24 23:11 Carbon Dioxide 25 mmol/L (21-32) 04/09/24 23:11 Anion Gap 7 (3-11) 04/09/24 23:11 BUN 14 mg/dl (6-23) 04/09/24 23:11 Creatinine 1.23 mg/dl (0.6-1.2) H 04/09/24 23:11 Est Cr Clr Drug Dosing 84.4 ml/min 04/09/24 23:11 Est GFR ( Amer) 64.9 ml/min 04/09/24 23:11 Est GFR (Non-Af Amer) 56.0 ml/min 04/09/24 23:11 BUN/Creatinine Ratio 11.4 (10-20) 04/09/24 23:11 Glucose 83 mg/dl (70-99(Fasting)) 04/09/24 23:11 Lactate 1.1 mmol/L (0.4-2.0) 04/10/24 00:04 Calcium 9.2 mg/dl (8.6-10.3) 04/09/24 23:11 Magnesium 1.6 mg/dl (1.7-2.4) L 04/09/24 23:11 Total Bilirubin 0.2 mg/dl (0.2-1.0) 04/09/24 23:11 AST 17 U/L (13-39) 04/09/24 23:11 ALT 32 U/L (7-52) 04/09/24 23:11 Alkaline Phosphatase 99 U/L (34-104) 04/09/24 23:11 Total Creatine Kinase 37 U/L (26-192) 04/09/24 23:11 Troponin I High Sens 12.2 pg/ml (0-14) 04/09/24 23:11 Troponin I High Sens Cancelled 04/09/24 23:11 Total Protein 7.0 gm/dl (6.0-8.3) 04/09/24 23:11 Albumin 3.8 gm/dl (3.4-5.0) 04/09/24 23:11 Globulin 3.2 gm/dl (2.5-4.0) 04/09/24 23:11 Albumin/Globulin Ratio 1.2 (0.9-2) 04/09/24 23:11 TSH 3.656 uIu/ml (0.300-4.500) 04/09/24 23:11 HCG, Qual Negative (Negative) 04/09/24 23:11 Urine Color Yellow 04/10/24 00:46 Urine Appearance Clear (Clear) 04/10/24 00:46 Urine pH 6.5 (4.5-7.5) 04/10/24 00:46 Ur Specific Grubbs 1.008 (1.000-1.030) 04/10/24 00:46 Urine Protein Negative (Negative) 04/10/24 00:46 Urine Glucose (UA) Negative (Negative) 04/10/24 00:46 Urine Ketones Negative (Negative) 04/10/24 00:46 Urine Blood Negative (Negative) 04/10/24 00:46 Urine Nitrite Negative (Negative) 04/10/24 00:46 Urine Bilirubin Negative (Negative) 04/10/24 00:46 Urine Urobilinogen Negative (Negative) 04/10/24 00:46 Ur Leukocyte Esterase 3+ (Negative) H 04/10/24 00:46 Urine WBC (Auto) 6-10 /hpf (0-5) H 04/10/24 00:46 Urine RBC (Auto) 0-2 /hpf (0-2) 04/10/24 00:46 U Hyaline Cast (Auto) 0-2 /lpf (0-2) 04/10/24 00:46 U Epithel Cells (Auto) 3-5 /hpf (0-2) H 04/10/24 00:46 Urine Bacteria (Auto) None Seen (None Seen) 04/10/24 00:46 Adenovirus (PCR) Not Detected (NotDetected) 04/10/24 03:47 B. pertussis DNA (PCR) Not Detected (NotDetected) 04/10/24 03:47 B.parapertussis DNA PCR Not Detected (NotDetected) 04/10/24 03:47 C. pneumoniae DNA (PCR) Not Detected (NotDetected) 04/10/24 03:47 Coronavirus OC43 (PCR) Not Detected (NotDetected) 04/10/24 03:47 Coronavirus HKU1 (PCR) Not Detected (NotDetected) 04/10/24 03:47 Coronavirus 229E (PCR) Not Detected (NotDetected) 04/10/24 03:47 SARS-CoV-2 (PCR) Not Detected (NotDetected) 04/10/24 03:47 Coronavirus NL63 (PCR) Not Detected (NotDetected) 04/10/24 03:47 Human Metapneumovir PCR Not Detected (NotDetected) 04/10/24 03:47 Influenza Type A (PCR) Not Detected (NotDetected) 04/10/24 03:47 Influenza Type B (PCR) Not Detected (NotDetected) 04/10/24 03:47 M. pneumoniae (PCR) Not Detected (NotDetected) 04/10/24 03:47 Parainfluenza 1 (PCR) Not Detected (NotDetected) 04/10/24 03:47 Parainfluenza 2 (PCR) Not Detected (NotDetected) 04/10/24 03:47 Parainfluenza 3 (PCR) Not Detected (NotDetected) 04/10/24 03:47 Parainfluenza 4 (PCR) Not Detected (NotDetected) 04/10/24 03:47 RSV (PCR) Not Detected (NotDetected) 04/10/24 03:47 Entero/Rhino (PCR) Not Detected (NotDetected) 04/10/24 03:47 Impressions Abdomen/Pelvis CT 04/09/24 23:51 Exam(s): CT ABDOMEN + PELVIS With Contrast IV Amt: 92 ml opti 320 EXAM: CT Abdomen and Pelvis With Intravenous Contrast CLINICAL HISTORY: Reason for exam: mid abd pain. TECHNIQUE: Axial computed tomography images of the abdomen and pelvis with intravenous contrast. CTDI is 28.28 mGy and DLP is 1380.68 mGy-cm. Automated exposure control was utilized for the study. A dose lowering technique was utilized adhering to the principles of ALARA. CONTRAST: Patient received 92 ml opti 320 of IV contrast COMPARISON: CT abdomen/pelvis on 06/02/2023 FINDINGS: Lung bases: Unremarkable. No mass. No consolidation. ABDOMEN: Liver: Hepatic steatosis. Hepatomegaly. Gallbladder and bile ducts: Hyperdense material in the gallbladder may represent artifact versus stones/sludge. No ductal dilation. Pancreas: Unremarkable. No mass. No ductal dilation. Spleen: Unremarkable. No splenomegaly. Adrenals: Unremarkable. No mass. Kidneys and ureters: Unremarkable. No hydronephrosis or obstructing ureteral stone. Stomach and bowel: Evaluation of the stomach is limited by under distention. No mucosal thickening. No bowel obstruction or inflammation. PELVIS: Appendix: Appendix is not definitely visualized on this exam. Bladder: Mild prominence of the bladder wall may be secondary to underdistention. Please correlate with urinalysis if concerned for cystitis. Reproductive: Unremarkable as visualized. ABDOMEN and PELVIS: Intraperitoneal space: Unremarkable. No free air. No significant fluid collection. Bones/joints: No acute fracture. No dislocation. Soft tissues: Tiny fat-containing umbilical hernia. Vasculature: Unremarkable. No abdominal aortic aneurysm. Lymph nodes: Unremarkable. No enlarged lymph nodes. Tubes, lines and devices: Intrauterine device in place. IMPRESSION: 1. Mild prominence of the bladder wall may be secondary to underdistention. Please correlate with urinalysis if concerned for cystitis. 2. Hyperdense material in the gallbladder may represent artifact versus stones/sludge. Electronically signed by: Rell Du M.D. 04/10/24 02:15 AM Code Status & VTE Plan Code Status full code VTE Prophylaxis Plan VTE Prophylaxis will be ordered: Yes PG Care Time/CCT Total # of Minutes Spent Total Time Spent with Patient: Total time spent is greater than 50% in coordination of care (as documented) at patient's floor/unit and/or counseling patient: Coding Level of Care Code 63273 INT INP/OBS CARE 75MIN Diagnoses Gisele-Danlos syndrome Q79.60 Adrenal insufficiency E27.40 Chronic venous insufficiency I87.2 Chronic diarrhea K52.9 GERD (gastroesophageal reflux disease) K21.9 Acquired hypothyroidism E03.9 Hypothyroidism type: acquired Lymphocytic colitis K52.832 Gastroparesis K31.84 Anxiety and depression F41.9; F32.A (6) Hypothyroidism Hypothyroidism type: acquired Qualified Code(s): E03.9 - Hypothyroidism, unspecified
[2024-04-10 04:50] LABS: Adenovirus PCR Not Detected (NotDetected); Bordetella parapertussis PCR Not Detected (NotDetected); Bordetella pertussis PCR Not Detected (NotDetected); Chlamydia pneumoniae PCR Not Detected (NotDetected); Coronavirus 229E PCR Not Detected (NotDetected); Coronavirus CoV-2 (COVID19)PCR Not Detected (NotDetected); Coronavirus HKU1 PCR Not Detected (NotDetected); Coronavirus NL63 PCR Not Detected (NotDetected); Coronavirus OC43PCR Not Detected (NotDetected); Human Metapneumovirus PCR Not Detected (NotDetected); Influenza A PCR Not Detected (NotDetected); Influenza B PCR Not Detected (NotDetected); Mycoplasma pneumoniae PCR Not Detected (NotDetected); Parainfluenza Virus 1 PCR Not Detected (NotDetected); Parainfluenza Virus 2 PCR Not Detected (NotDetected); Parainfluenza Virus 3 PCR Not Detected (NotDetected); Parainfluenza Virus 4 PCR Not Detected (NotDetected); Respiratory Syncytial VirusPCR Not Detected (NotDetected); Rhinovirus/Enterovirus PCR Not Detected (NotDetected)
[2024-04-10] MEDS: cefTRIAXone SODIUM 2,000 MG/50 ML BAG IV STA (05:35)
--- OUTSIDE RECORDS SUMMARY | 2024-04-10 05:53 | External Medical Summary | Summary of Care ---
Author Name Unknown Organization [facility] Address [address] [place] [address] Phone [phone] Care Team Providers Care After School Program Teacher Name Role Phone Vero Bhandari MD Primary Care Provide r Reason for Visit * Reason Onset Date Comments Advice 04/09/2024 martha Encounter Details Date Type Department Care Team (Late st Contact Info) Description 04/09/2024 Telephone Palliative Medicine [facility] [address] [place] [address] Willard Laguna MD [address] [place] [address] Advice (martha) Allergies Active Allergy Reactions Criticality Noted Date [...] as of this encounter (statuses as of 04/10/2024) Medications Medication Sig Dispensed Refills Start Date [...] Tablet by mouth at bedtime. Active EpiPen 2-Mralo 0.3 MG/0.3ML Injection Solution Auto-injector As directed [...] nostril as needed for Rhinitis. 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 She is experiencing worsening weakness, impaired gait, loss of energy, fatigue, dizziness upon standing, worsening chronic pain including abdominal discomfort, cognitiveslowing, and has not yet started supplemental steroid therapy in management of secondary adrenal insufficiency. She has not been able to stay well hydrated, no interest in food. I have concerns over possible evolving adrenal crisis and recommended she pursue evaluation in nearest ED. She agreed with my proposed plan, I explained to her that I would be available to address ED visit with emergency medicine physician. 65 I specifically inquired as to whether she was having thoughts about hurting herself or hurting others. She expressed that at present she had no intrusive thoughts of hurting herself even though she fell like she has been losing control over her life, her ability to dictate how her health occurs showed be managed due to limitations and barriers in receiving the care she feels she needs. She has noplan to carry out any attempts at hurting herself, and recognizes the impact the surgeon would haveon her immediate family and tells me she would never do something like that. Provided emotional support through reflective listening and logotherapy. Time spent 73 minutes. 57 minutes in complex [id number] patient counseling. * Telephone Encounter - Tushar Chan MD - 04/09/2024 4:38 PM EDT Thanks for including me. I do not know this pt but would be helpful to ask questions regarding sucideal thoughts, ideation. If needs help then ER visit? * Telephone Encounter - Lynnette Menendez LPN - 04/09/2024 3:53 PM EDT Asking to share with Dr.. Chao I feel like I am going to loose it so bear with me Very emotional- Wants to discuss respite sedation more with you Has not slept for more than 3 hours in days Has tried to call PCP- Dr. Ashley- had heated discussion over getting CT scans done.Staff was rude per pt- feels like the run around continues for her- nothing changes Tried to call after hours to Palliative and did not appreciate the conversation she had with the provider Does not like herself right now- not sure what to do at this point Seeing both her therapist and psychiatrist in the last 2 days. 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 Not even sure why she called us - feels so overwhelmed to the point she is not sure how she is supposed to happen Not sure what to do.- sobbing. Knows she has exhausted about all avenues that she can. * Telephone Encounter - Isha Sorto OSA - 04/09/2024 3:18 PM EDT Patient calling in- she states she would like to speak with Dr. Chao or Crystal. She states she has a medical question, no other information given. Please advise. documented in this encounter Plan of Treatment Upcoming Encounters Date Type Department Care Team (Late st Contact Info) Description 05/03/2024 12:00 PM EDT Office Visit Gastroenterology, [facility] [address] [facility] [place] [address] Evita Kam PA-C [address] [facility] [place] [address] Health Maintenance Due Date Last Done Comments [...] filedocumented as of this encounter Care Teams After School Program Teacher Relationship Specialty Start Date End Date Vero Bhandari MD [address] [place] [id number] PCP - General Internal Medicine 11/19/22 documented as of this encounter
--- OUTSIDE RECORDS SUMMARY | 2024-04-10 05:53 | External Medical Summary | Summary of Care ---
Author Name Unknown Organization [facility] Address [address] [place] [address] Phone [phone] Care Team Providers Care Wax Pattern Assembler Name Role Phone Vero Bhandari MD Primary Care Provide r Reason for Visit * Reason Onset Date Comments Advice 04/09/2024 martha Encounter Details Date Type Department Care Team (Late st Contact Info) Description 04/09/2024 Telephone Palliative Medicine [facility] [address] [place] [address] Willard Laguna MD [address] [place] [address] Advice (martha) Allergies Active Allergy [...] nostril as needed for Rhinitis. 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 Chao or Lynnette. She states she has a medical question, no other information given. Please advise. documented in this encounter Plan of Treatment Upcoming Encounters Date Type Department Care Team (Late st Contact Info) Description 05/03/2024 12:00 PM EDT Office Visit Gastroenterology, [facility] [address] [facility] [place] [address] Evita Kam PA-C [address] [place] [phone] Health Maintenance Due Date Last Done Comments Depression Screening 1999 HIV Screening 2002 Hepatitis C Screening 2005 Hepatitis B Vaccine (1 of 3 - 19+ 3-dose series) 2006 Pap Smear 01/14/2008 Cervical Cancer Screening 2017 HPV/Co-Test 2017 TSH 04/04/2021 04/04/2020 COVID-19 Vaccine (2023- season) 2024 10/06/2020, 09/08/2020 Influenza Vaccine (FLU [...] filedocumented as of this encounter Care Teams Wax Pattern Assembler Relationship Specialty Start Date End Date Vero Bhandari MD [address] [place] [address] PCP - General Internal Medicine 11/19/22 documented as of this encounter
[2024-04-10] MEDS ORDERED: ACETAMINOPHEN 325 MG TAB PO PRN (05:55)
[2024-04-10] MEDS ORDERED: NALOXONE HCL 0.4 MG/1 ML VIAL/CARP IV PRN (06:49)
--- NOTE | 2024-04-10 09:02 | XRay Report ---
XR chest 1V portable CLINICAL HISTORY: weakness TECHNIQUE: Single frontal radiograph of the chest was obtained. Comparison: Comparison is made to chest radiograph 01/08/2024 FINDINGS: A port catheter is seen. The cardiomediastinal silhouette is normal. The lungs are clear. No evidence of pleural effusion or pneumothorax. IMPRESSION: No acute chest disease. ACT 112: Negative or not required by law. Electronically signed by: Roge Lobo M.D. 04/10/2024 9:01 AM
[2024-04-10] MEDS: MIDODRINE HCL 2.5 MG TAB PO SCH (09:08)
[2024-04-10] MEDS: pyRIDostigmine bromide 60 MG TAB PO SCH (09:08)
[2024-04-10] MEDS: CYCLOBENZAPRINE HCL 10 MG TAB PO SCH (09:08)
[2024-04-10] MEDS: FAMOTIDINE 40 MG TABLET PO SCH (09:09)
[2024-04-10] MEDS: CARBIDOPA/LEVODOPA 25/100MG TAB PO SCH (09:09)
[2024-04-10] MEDS: LORATADINE 10 MG TAB PO SCH (09:09)
[2024-04-10] MEDS: PANTOprazole 40 MG TAB PO SCH (09:10)
[2024-04-10] MEDS: MoRPHine SULFATE CR 15 MG TABCR PO SCH (09:10)
[2024-04-10] MEDS: NSS + 20MEQ KCL 20 MEQ/1,000 ML BAG IV SCH (09:14)
[2024-04-10] MEDS: HYDROCORTISONE SOD 100 MG in SYRINGE 0 ML IV SCH (09:16)
[2024-04-10] MEDS: ONDANSETRON INJ 2 MG/ML 2 ML VIAL IV PRN (15:47)
--- NOTE | 2024-04-10 17:26 | Hospitalist Progress Note ---
Date of Service April 10, 2024 Assessment & Plan (1) Adrenal insufficiency: Plan: Adrenal insufficiency - Primary symptom for being here is that of fatigue and likely adrenal insufficiency - Hydrocortisone 100 mg IV every 8 hours and Follow response > Of note, patient did not tolerate oral steroids in the past - A-port deaccessed during this hospitalization. Scheduled for fluoro A-port study for 04/12/24 (2) Gisele-Danlos syndrome: Plan: - Continue routine medications for Gisele-Danlos - Continue chronic pain medications morphine sulfate. Continue Narcan - Hold meloxicam (3) GERD (gastroesophageal reflux disease): Plan: GERD/chronic biliary emesis/chronic gallbladder dysfunction/gastroparesis- - Patient has had significant workup in the past, including during hospitalization from 01/07-01/11/2024 - Continue cholestyramine - Used to follow with [facility] GI (specifically Dr. Ramirez) but referrals have been made for her to see [facility] - Continues to report bile reflux Hypomagnesemia- - Magnesium 1.6 on admission - Give 2 g mag sulfate IV - recheck with AM labs Plan Spent a total of 80 minutes discussing past medical history with patient Reviewed past PCP and palliative care notes Ordered Zofran VTE PPx: SCDs CODE STATUS: Full code Admission and Anticipated Discharge Date Admission Date: April 10, 2024 Supervising Physician Co-Signing Physician Notes Attending Attestation - Chart reviewed, care plan d/w [place]ONE[place] Loretta Hinojosa. I agree w/ the corona components of her documentation. Ms Hinojosa spent 80+ minutes at the bedside today reviewing the patient's medical history and the pt's complaints. Fatigue, weakness, etc are some of the larger complaints from the patient. I reviewed the most recent outpatient endocrinology report from February 2024. Patient does have a low cortisol level at baseline but did pass a cosyntropin stim test technically (stimmed to >18). [id number] she has been trialed on PO steroids and despite such her dizziness, weakness, etc did not necessarily improved (per the endocrinology documentation). While here we are going to trial her again on steroids IV and see if this helps her feel better. Tanvir Barlow MD Subjective Patient seen and evaluated at bedside in the ED. She reports that she is feeling very poor. We had an extremely extensive conversation regarding her past medical history. Her medical conditions are complex and she follows with multiple specialists. Her main complaints today include fatigue, back pain, bile reflux, nausea, dizziness. She reports that she has a "burnt tongue" at times from bile reflux. She reports that she has been "fired by Dr. Ramirez's office" and further details her concern about seeing GI soon, specifically with Dr. Ramirez. Physical Exam Physical Exam: General: No acute distress, nondiaphoretic, well-developed, well-nourished. Anxious appearing. Skin: The skin was without rashes, erythema, edema, or bruising. Cardiac: Regular rate and rhythm without murmurs gallops or rubs. Pulm: Clear to auscultation bilaterally without wheezes, rales or rhonchi. No respiratory distress. 97% on room air. Abdominal: Soft, nontender, nondistended. Bowel sounds present. Neuro: A&O x3. No focal neurological deficits. Results & Data Results & Data Vital Signs (Past 12 Hours) Vital Signs Temp Pulse Pulse Resp BP BP Pulse Ox 04/10/24 17:03 97.8 F 92 H 18 126/75 97 04/10/24 15:13 78 04/10/24 13:25 85 120/87 99 04/10/24 12:54 98.1 F 92 H 20 108/72 95 04/10/24 09:32 98.1 F 90 20 114/66 95 04/10/24 07:01 95 H 04/10/24 06:34 98.8 F 99 H 16 98 04/10/24 06:25 04/10/24 06:22 68 18 103/66 100 Pulse Ox O2 Del Method O2 Del Method 04/10/24 17:03 Room Air 04/10/24 15:13 04/10/24 13:25 Room Air 04/10/24 12:54 Room Air 04/10/24 09:32 Room Air 04/10/24 07:01 04/10/24 06:34 Room Air 04/10/24 06:25 99 Room Air 04/10/24 06:22 Room Air Laboratory Results Reviewed CBC Reviewed CMP Reviewed UA Reviewed respiratory bio fire PG Care Time/CCT Total # of Minutes Spent Total Time Spent with Patient: Total time spent is greater than 50% in coordination of care (as documented) at patient's floor/unit and/or counseling patient: Prolonged Care Time Prolonged Care Time: Yes Total Prolonged Care Time: 80 Coding Level of Care Code 76204 SUB INP/OBS CARE 3/50MIN (25 - SIGNIFICANT, SEPARATELY IDENTIFIABLE ) Diagnoses Adrenal insufficiency E27.40 Gisele-Danlos syndrome Q79.60 GERD (gastroesophageal reflux disease) K21.9 Additional Codes Prolonged Care Time - Prolonged Care Time: Yes ([id number])
[2024-04-10] MEDS ORDERED: MAGNESIUM GLYCINATE PO SCH (21:00)
[2024-04-10] MEDS: MELATONIN 3 MG TAB PO SCH (21:33)
[2024-04-10] MEDS: tiZANidine HCL 4 MG TABLET PO SCH (21:34)
[2024-04-10] MEDS: hydrOXYzine HCl 25 MG TAB PO SCH (21:35)
[2024-04-10] MEDS: MONTELUKAST SODIUM 10 MG TABLET PO SCH (21:35)
[2024-04-10] MEDS: MoRPHine SULFATE IR 15 MG TAB (IMMEDIATE RELEASE) PO ONE (22:35)
[2024-04-11 06:51] LABS: Basophils # (auto) 0.03 K/uL (0.00-0.20); Basophils % (auto) 0.2 %; Eosinophils # (auto) 0.01 K/uL (0.00-0.50); Eosinophils % (auto) 0.1 %; Hematocrit (blood only) 39.7 % (37.0-47.0); Hemoglobin 12.7 g/dl (12.0-16.0); Immature Granulocytes # (auto) 0.07 K/uL (0.01-0.20); Immature Granulocytes % (auto) 0.5 %; Lymphocytes # (auto) 1.74 K/uL (1.20-3.40); Lymphocytes % (auto) 13.5 %; Mean Corpuscular Hemoglobin 31.3 pg (25.0-34.0); Mean Corpuscular Volume 97.8 fL (80.0-100.0); Mean Platelet Volume 8.8 fL (9.4-12.4); Monocytes # (auto) 0.34 K/uL (0.11-0.59); Monocytes % (auto) 2.6 %; Neutrophils # (auto) 10.73 K/uL (1.40-6.50); Neutrophils % (auto) 83.1 %; Platelet Count 317 K/uL (130-400); RDW Coefficient of Variation 13.5 % (11.5-14.5); RDW Standard Deviation 48.8 fL (36.4-46.3); Red Blood Count 4.06 M/uL (4.20-5.40); White Blood Count 12.92 K/ul (4.8-10.8)
[2024-04-11 07:18] LABS: Albumin Globulin Ratio 1.2 (0.9-2); BUN Creatinine Ratio 10.5 (10-20); Bilirubin,Total 0.3 mg/dl (0.2-1.0); Calcium 9.3 mg/dl (8.6-10.3); Creatinine Clr Calc Pharmacy 85.1 ml/min; Est GFR (African American) 64.3 ml/min; Est GFR (Non-African American) 55.4 ml/min; Globulin 3.4 gm/dl (2.5-4.0); Magnesium 2.4 mg/dl (1.7-2.4); Potassium 4.2 mmol/L (3.5-5.1); Total Protein 7.4 gm/dl (6.0-8.3)
--- NOTE | 2024-04-11 08:40 | Hospitalist Progress Note ---
Date of Service April 11, 2024 Assessment & Plan (1) Adrenal insufficiency: Plan: Adrenal insufficiency - Primary symptom for being here is that of fatigue and likely adrenal insufficiency - Per review of outpatient endocrinology notes, patient does have a low cortisol level at baseline but did pass a cosyntropin stim test technically (stimmed to >18). She was still trialed on p.o. steroids, however her symptoms of dizziness/weakness did not notably improve. Of note, patient reported allergic reaction of facial swelling/swelling of tongue on p.o. steroids - but she tolerates IV steroids without problem. - Hydrocortisone 100 mg IV every 8 hours. Follow response and titrate down as indicated. - A-port deaccessed during this hospitalization. Scheduled for fluoro A-port study for 04/12/24. - Patient was ordered multiple imaging studies to get in the outpatient setting by her PCP, however these have not yet been obtained. > CTA A/P with and without contrast, CTA head with and without contrast, CTA chest with and without contrast - ordered, pending. - PCP also recommended AM cortisol, however, will defer this to the outpatient setting given her current steroids. - Could consider an overnight pulse oximetry test closer to discharge, potentially NATACHA is a factor in her fatigue. 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 Continue Narcan - Hold meloxicam (3) GERD (gastroesophageal reflux disease): Plan: GERD/chronic biliary emesis/chronic gallbladder dysfunction/gastroparesis- - Patient has had significant workup in the past, including during hospitalization from 01/07-01/11/2024 - Continue cholestyramine - Used to follow with [facility] (specifically Dr. Ramirez) but referrals have been made for her to see [facility] - Started colestipol 1 g twice daily for bile acid sequestrant. Increase as needed. - Started Pepto as needed for dyspepsia. Hypomagnesemia- - Magnesium 1.6 on admission - Repleted and augmented appropriately to 2.4 Plan Ordered A-port study for 04/12 Started colostrum pill and Pepto Ordered CTA head, chest, A/P VTE PPx: SCDs CODE STATUS: Full code Admission and Anticipated Discharge Date Admission Date: April 10, 2024 Supervising Physician Co-Signing Physician Notes Attending Attestation - Chart reviewed, care plan d/w ANTONELLA Hinojosa. I agree w/ the corona components of her documentation. Pt requesting CTA chest/abd/pelvis & head. These were ordered for her as a courtesy. These were recently ordered by her outpatient providers. She complains of fatigue - consider overnight oximetry study. She complains of "bile reflux" - try colestipol + pepto prn. Tanvir Barlow MD Subjective Patient seen and evaluated at bedside. She reports that she has continues to feel very fatigued, but notices a very minimal improvement in her dizziness today. She became emotional during my visit and kept repeating that she felt "guilty" about being a complicated patient taking up people's time. I reassured her that it is our job to attend to her needs and work through this together, and further encouraged her to utilize the resources available here. Her PCP had ordered outpatient imaging to be obtained, however the patient is yet to get this. It has been ordered while she is inpatient. We also discussed a trial of colestipol and Pepto-Bismol for her bile reflux, she is agreeable. No additional complaints or concerns at this time. Physical Exam Physical Exam: General: No acute distress, nondiaphoretic, well-developed, well-nourished. Anxious appearing. Skin: The skin was without rashes, erythema, edema, or bruising. Cardiac: Regular rate and rhythm without murmurs gallops or rubs. Pulm: Clear to auscultation bilaterally without wheezes, rales or rhonchi. No respiratory distress. 97% on room air. Abdominal: Soft, nontender, nondistended. Bowel sounds present. Neuro: A&O x3. No focal neurological deficits. Results & Data Results & Data Vital Signs (Past 12 Hours) Vital Signs Temp Pulse Pulse Resp BP Pulse Ox O2 Del Method 04/11/24 07:00 65 04/11/24 02:50 98.2 F 74 18 117/67 97 Room Air 04/11/24 01:03 91 H 04/10/24 22:56 98.1 F 77 22 114/73 93 Room Air Laboratory Results Reviewed CBC Reviewed CMP PG Care Time/CCT Total # of Minutes Spent Total Time Spent with Patient: Total time spent is greater than 50% in coordination of care (as documented) at patient's floor/unit and/or counseling patient: Coding Level of Care Code 75748 SUB INP/OBS CARE 50MIN Diagnoses Adrenal insufficiency E27.40 Gisele-Danlos syndrome Q79.60 GERD (gastroesophageal reflux disease) K21.9
--- NOTE | 2024-04-11 13:16 | Electrocardiogram Report ---
Test Reason : Blood Pressure : */* mmHG Vent. Rate : 98 BPM Atrial Rate : 98 BPM P-R Int : 148 ms QRS Dur : 78 ms QT Int : 348 ms P-R-T Axes : 64 58 18 degrees QTcB Int : 444 ms Normal sinus rhythm Normal ECG When compared with ECG of 08-Jan-2024 15:27, No significant change was found Confirmed by Ang Naranjo ([id number]) on 04/11/2024 1:15:58 PM Referred By: MARTA GARZA Confirmed By: Ang Naranjo
[2024-04-11] MEDS: OPTIRAY 320 125ml IV ONE (21:03)
[2024-04-11] MEDS: COLESTIPOL HCL 1 GM TAB PO SCH (22:11)
[2024-04-11] MEDS: BISMUTH SUBSALICYLATE SUSP PO PRN (22:12)
--- NOTE | 2024-04-12 00:24 | CT Scan Report ---
Exam(s): CTA HEAD W/WO Contrast IV Amt: 119 ml optiray 320 EXAM: CT Angiography Head Without and With Intravenous Contrast CLINICAL HISTORY: Reason for exam: Anasarca. TECHNIQUE: Axial computed tomographic angiography images of the head without and with intravenous contrast. Automated exposure control was utilized for the study. A dose lowering technique was utilized adhering to the principles of ALARA. MIP reconstructed images were created and reviewed. CONTRAST: Patient received 119 ml optiray 320 of IV contrast COMPARISON: No relevant prior studies available. FINDINGS: VASCULATURE: Digital venous sinuses are patent. Right internal carotid artery: No acute findings. Intracranial segment is patent with no significant stenosis. No aneurysm. Right anterior cerebral artery: Unremarkable. No occlusion or significant stenosis. No aneurysm. Right middle cerebral artery: Unremarkable. No occlusion or significant stenosis. No aneurysm. Right posterior cerebral artery: Unremarkable. No occlusion or significant stenosis. No aneurysm. Right vertebral artery: Unremarkable as visualized. Left internal carotid artery: No acute findings. Intracranial segment is patent with no significant stenosis. No aneurysm. Left anterior cerebral artery: Unremarkable. No occlusion or significant stenosis. No aneurysm. Left middle cerebral artery: Unremarkable. No occlusion or significant stenosis. No aneurysm. Left posterior cerebral artery: Unremarkable. No occlusion or significant stenosis. No aneurysm. Left vertebral artery: Unremarkable as visualized. Basilar artery: Unremarkable. No occlusion or significant stenosis. No aneurysm. HEAD: Brain: No acute findings. No hemorrhage. No edema. Normal enhancement. Ventricles: Unremarkable. No ventriculomegaly. Bones/joints: No acute fracture. Soft tissues: Unremarkable. Sinuses: Unremarkable as visualized. No acute sinusitis. Mastoid air cells: Unremarkable as visualized. No mastoid effusion. IMPRESSION: Negative CT angiogram of the head. Electronically signed by: Kacey Bullock MD 04/12/24 00:23 AM
--- NOTE | 2024-04-12 00:44 | CT Scan Report ---
Exam(s): CTA CHEST W/WO Contrast IV Amt: 119 ml optiray 320 EXAM: CT Angiography Chest Without and With Intravenous Contrast CLINICAL HISTORY: Reason for exam: Anasarca. TECHNIQUE: Axial computed tomographic angiography images of the chest without and with intravenous contrast. CTDI is 25.96 mGy and DLP is 2344.38 mGy-cm. Automated exposure control was utilized for the study. A dose lowering technique was utilized adhering to the principles of ALARA. MIP reconstructed images were created and reviewed. CONTRAST: Patient received 119 ml optiray 320 of IV contrast COMPARISON: 09/23/2023. FINDINGS: The exam is limited due to artifact. It is further limited due to poor contrast bolus. Pulmonary arteries: No definite central pulmonary embolism is seen.. Aorta: There are atherosclerotic changes. No thoracic aortic aneurysm or dissection. Lungs: No mass. No consolidation. Pleural space: No significant effusion. No pneumothorax. Heart: Heart is normal in size.. Bones/joints: There is a mild scoliosis with mild degenerative changes. Soft tissues: Unremarkable. Lymph nodes: No enlarged lymph nodes. Vasculature: There is stenosis noted in the left subclavian vein. IMPRESSION: Limited exam. No evidence of thoracic aortic aneurysm or dissection. Electronically signed by: Justino Vasquez MD 04/12/24 00:43 AM
--- NOTE | 2024-04-12 00:48 | CT Scan Report ---
Exam(s): CTA ABDOMEN + PELVIS W/WO Contrast IV Amt: 119 ml optiray 320 EXAM: CT Abdomen and Pelvis Without and With Intravenous Contrast CLINICAL HISTORY: Reason for exam: Anasarca. TECHNIQUE: Axial computed tomographic images of the abdomen and pelvis without and with intravenous contrast. CTDI is 25.96 mGy and DLP is 2344.38 mGy-cm. Automated exposure control was utilized for the study. A dose lowering technique was utilized adhering to the principles of ALARA. CONTRAST: Patient received 119 ml optiray 320 of IV contrast COMPARISON: No relevant prior studies available. FINDINGS: The exam is limited due to artifact. It is further limited due to poor contrast bolus. VASCULATURE: Aorta: No aneurysm is seen. No dissection. Celiac trunk and mesenteric arteries: No occlusion or significant stenosis. Renal arteries: . No occlusion or significant stenosis. Iliac arteries: No occlusion or significant stenosis. ABDOMEN: Liver: The liver is enlarged and of diffuse decreased attenuation. Gallbladder and bile ducts: No calcified stones. No ductal dilation. Pancreas: No ductal dilation. No mass. Spleen: No splenomegaly. Adrenals: No mass. Kidneys and ureters: No obstructing stones. No hydronephrosis. No solid mass. Stomach and bowel: The stomach is distended containing a large amount of retained foodstuffs. There is air and stool noted in the colon.. PELVIS: Appendix: No findings to suggest acute appendicitis. Bladder: No calculi are noted within the bladder.. Reproductive: An IUD is noted within the uterus.. ABDOMEN and PELVIS: Intraperitoneal space: No significant fluid collection. No free air. Bones/joints: There are mild degenerative changes in the spine.. Soft tissues: Unremarkable. Lymph nodes: No enlarged lymph nodes. IMPRESSION: No evidence of abdominal aortic aneurysm or dissection. Liver is enlarged and of diffuse decreased attenuation which may be due to fatty infiltration. Electronically signed by: Justino Vasquez MD 04/12/24 00:48 AM
[2024-04-12 06:03] LABS: Basophils # (auto) 0.02 K/uL (0.00-0.20); Basophils % (auto) 0.1 %; Hematocrit (blood only) 35.4 % (37.0-47.0); Hemoglobin 11.3 g/dl (12.0-16.0); Immature Granulocytes # (auto) 0.11 K/uL (0.01-0.20); Immature Granulocytes % (auto) 0.8 %; Lymphocytes # (auto) 1.94 K/uL (1.20-3.40); Lymphocytes % (auto) 14.1 %; Mean Corpuscular Hemoglobin 30.7 pg (25.0-34.0); Mean Corpuscular Hgb Conc 31.9 g/dL (32.0-36.0); Mean Corpuscular Volume 96.2 fL (80.0-100.0); Mean Platelet Volume 8.9 fL (9.4-12.4); Monocytes # (auto) 0.66 K/uL (0.11-0.59); Monocytes % (auto) 4.8 %; Neutrophils # (auto) 11.05 K/uL (1.40-6.50); Neutrophils % (auto) 80.2 %; Platelet Count 282 K/uL (130-400); RDW Coefficient of Variation 13.6 % (11.5-14.5); RDW Standard Deviation 48.4 fL (36.4-46.3); Red Blood Count 3.68 M/uL (4.20-5.40); White Blood Count 13.78 K/ul (4.8-10.8)
[2024-04-12 06:18] LABS: Albumin Globulin Ratio 1.3 (0.9-2); Albumin Level 3.6 gm/dl (3.4-5.0); BUN Creatinine Ratio 15.7 (10-20); Bilirubin,Total 0.2 mg/dl (0.2-1.0); Calcium 8.8 mg/dl (8.6-10.3); Creatinine Clr Calc Pharmacy 87.2 ml/min; Est GFR (African American) 66.2 ml/min; Est GFR (Non-African American) 57.1 ml/min; Globulin 2.7 gm/dl (2.5-4.0); Potassium 4.1 mmol/L (3.5-5.1); Total Protein 6.3 gm/dl (6.0-8.3)
--- NOTE | 2024-04-12 08:11 | Hospitalist Progress Note ---
Date of Service April 12, 2024 Assessment & Plan (1) Adrenal insufficiency: Plan: Adrenal insufficiency - Primary symptom for being here is that of fatigue and likely adrenal insufficiency - Per review of outpatient endocrinology notes, patient does have a low cortisol level at baseline but did pass a cosyntropin stim test technically (stimmed to >18). She was still trialed on p.o. steroids, however her symptoms of dizziness/weakness did not notably improve. Of note, patient reported allergic reaction of facial swelling/swelling of tongue on p.o. steroids - but she tolerates IV steroids without problem. - Hydrocortisone 100 mg IV every 8 hours. Follow response and titrate down as indicated. > Leukocytosis secondary to steroids, no infectious signs or symptoms. - A-port initially deaccessed, now reaccessed during this hospitalization. > Concern due to listed iodine allergy in chart. Discussed with radiology and since she has tolerated contrast previously, and is getting steroids and multiple antihistamines, ok to proceed with A port study. > Fluoroscopy A-port study showed findings compatible with fibrin sheath along the distal aspect of the Qverzn-m-Rhft catheter. RN reports difficult to flush but working okay. - Patient was ordered multiple imaging studies to get in the outpatient setting by her PC for anasarca, however these were not obtained so will get while inpatient. > CTA A/P showed enlarged liver but otherwise negative, CTA head negative, CTA chest negative. - PCP also recommended AM cortisol, however, will defer this to the outpatient setting given her current steroids. - Could consider an overnight pulse oximetry test closer to discharge, potentially NATACHA is a factor in her fatigue. 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 Continue Narcan - Hold meloxicam (3) GERD (gastroesophageal reflux disease): Plan: GERD/chronic biliary emesis/chronic gallbladder dysfunction/gastroparesis- - Patient has had significant workup in the past, including during hos pitalization from 01/07-01/11/2024 - Continue cholestyramine - Used to follow with [facility] (specifically Dr. Ramirez) but referrals have been made for her to see [facility] - Started colestipol 1 g twice daily for bile acid sequestrant. Increase as needed. - Started Pepto as needed for dyspepsia. - Added Imodium per patient's request stating this has helped her bile acid diarrhea in the past. Hypomagnesemia- - Magnesium 1.6 on admission - Repleted and augmented appropriately to 2.4 Plan Provided extensive emotional support for 110 minutes at bedside Consulted liaison Ordered LR times 1L Ordered Imodium VTE PPx: SCDs CODE STATUS: Full code Admission and Anticipated Discharge Date Admission Date: April 10, 2024 Supervising Physician Co-Signing Physician Notes Attending Attestation - Chart reviewed, care plan d/w ANTONELLA Hinojosa. I agree w/ the corona components of her documentation. CTA chest/abd/pelvis results reviewed. CTA abdomen showed retained food in the stomach. Port study results reviewed. The retained food in the stomach would suggest gastroparesis. She has had a G-POEM procedure in the past for gastroparesis by Dr Rendon, [facility]. Consider reaching out to Dr Rendon re: the CTA results -- would she need repeat G-POEM? Consider gen surg consult due to results of A-port study today. Tanvir Barlow MD Subjective Patient seen and evaluated at bedside. We once again had an extremely extensive discussion lasting 110 minutes regarding her past medical history. She reports that her fatigue seems worse today, dizziness is about the same. She also notes that she had a formed bowel movement, which she is attributing to the Pepto- Bismol. She notes that usually her bowel movements are "straight up bile" and burn. We discussed the results of her extensive CTA imaging. She had an A port study today which is now accessible again. Furthermore, patient makes passive SI statements, reporting that she has no intention or plan of harming herself but states "I wonder if things would be better if I was not alive" and "I do not know how much longer I can go on like this." She does follow with psychiatry monthly outpatient, and sees a therapist weekly. I asked if she was interested in seeing our behavioral health liaison, and she is agreeable. Physical Exam Physical Exam: General: No acute distress, nondiaphoretic, well-developed, well-nourished. Anxious appearing. Skin: The skin was without rashes, erythema, edema, or bruising. Cardiac: Regular rate and rhythm without murmurs gallops or rubs. Pulm: Clear to auscultation bilaterally without wheezes, rales or rhonchi. No respiratory distress. 97% on room air. Abdominal: Soft, nontender, nondistended. Bowel sounds present. Neuro: A&O x3. No focal neurological deficits. Results & Data Results & Data Vital Signs (Past 12 Hours) Vital Signs Temp Pulse Pulse Resp BP Pulse Ox O2 Del Method 04/12/24 07:56 97.7 F 51 L 20 104/70 94 Room Air 04/12/24 07:09 66 04/12/24 02:59 98.2 F 74 18 97/65 L 95 Room Air 04/11/24 22:40 98.4 F 61 20 106/82 97 Room Air 04/11/24 21:42 108 H 04/11/24 20:15 Room Air Laboratory Results Reviewed CBC Reviewed BMP Diagnostic Findings Reviewed Head CTA (negative), Chest CTA (negative), A/P CTA (enlarged liver, otherwise negative) Reviewed A port study Head CTA 04/11/24 15:31 Exam(s): CTA HEAD W/WO Contrast IV Amt: 119 ml optiray 320 EXAM: CT Angiography Head Without and With Intravenous Contrast CLINICAL HISTORY: Reason for exam: Anasarca. TECHNIQUE: Axial computed tomographic angiography images of the head without and with intravenous contrast. Automated exposure control was utilized for the study. A dose lowering technique was utilized adhering to the principles of ALARA. MIP reconstructed images were created and reviewed. CONTRAST: Patient received 119 ml optiray 320 of IV contrast COMPARISON: No relevant prior studies available. FINDINGS: VASCULATURE: Digital venous sinuses are patent. Right internal carotid artery: No acute findings. Intracranial segment is patent with no significant stenosis. No aneurysm. Right anterior cerebral artery: Unremarkable. No occlusion or significant stenosis. No aneurysm. Right middle cerebral artery: Unremarkable. No occlusion or significant stenosis. No aneurysm. Right posterior cerebral artery: Unremarkable. No occlusion or significant stenosis. No aneurysm. Right vertebral artery: Unremarkable as visualized. Left internal carotid artery: No acute findings. Intracranial segment is patent with no significant stenosis. No aneurysm. Left anterior cerebral artery: Unremarkable. No occlusion or significant stenosis. No aneurysm. Left middle cerebral artery: Unremarkable. No occlusion or significant stenosis. No aneurysm. Left posterior cerebral artery: Unremarkable. No occlusion or significant stenosis. No aneurysm. Left vertebral artery: Unremarkable as visualized. Basilar artery: Unremarkable. No occlusion or significant stenosis. No aneurysm. HEAD: Brain: No acute findings. No hemorrhage. No edema. Normal enhancement. Ventricles: Unremarkable. No ventriculomegaly. Bones/joints: No acute fracture. Soft tissues: Unremarkable. Sinuses: Unremarkable as visualized. No acute sinusitis. Mastoid air cells: Unremarkable as visualized. No mastoid effusion. IMPRESSION: Negative CT angiogram of the head. Electronically signed by: Kacey Bullock MD 04/12/24 00:23 AM Abdomen/Pelvis CTA 04/11/24 15:37 Exam(s): CTA ABDOMEN + PELVIS W/WO Contrast IV Amt: 119 ml optiray 320 EXAM: CT Abdomen and Pelvis Without and With Intravenous Contrast CLINICAL HISTORY: Reason for exam: Anasarca. TECHNIQUE: Axial computed tomographic images of the abdomen and pelvis without and with intravenous contrast. CTDI is 25.96 mGy and DLP is 2344.38 mGy-cm. Automated exposure control was utilized for the study. A dose lowering technique was utilized adhering to the principles of ALARA. CONTRAST: Patient received 119 ml optiray 320 of IV contrast COMPARISON: No relevant prior studies available. FINDINGS: The exam is limited due to artifact. It is further limited due to poor contrast bolus. VASCULATURE: Aorta: No aneurysm is seen. No dissection. Celiac trunk and mesenteric arteries: No occlusion or significant stenosis. Renal arteries: . No occlusion or significant stenosis. Iliac arteries: No occlusion or significant stenosis. ABDOMEN: Liver: The liver is enlarged and of diffuse decreased attenuation. Gallbladder and bile ducts: No calcified stones. No ductal dilation. Pancreas: No ductal dilation. No mass. Spleen: No splenomegaly. Adrenals: No mass. Kidneys and ureters: No obstructing stones. No hydronephrosis. No solid mass. Stomach and bowel: The stomach is distended containing a large amount of retained foodstuffs. There is air and stool noted in the colon.. PELVIS: Appendix: No findings to suggest acute appendicitis. Bladder: No calculi are noted within the bladder.. Reproductive: An IUD is noted within the uterus.. ABDOMEN and PELVIS: Intraperitoneal space: No significant fluid collection. No free air. Bones/joints: There are mild degenerative changes in the spine.. Soft tissues: Unremarkable. Lymph nodes: No enlarged lymph nodes. IMPRESSION: No evidence of abdominal aortic aneurysm or dissection. Liver is enlarged and of diffuse decreased attenuation which may be due to fatty infiltration. Electronically signed by: Justino Vasquez MD 04/12/24 00:48 AM Chest CTA 04/11/24 15:37 Exam(s): CTA CHEST W/WO Contrast IV Amt: 119 ml optiray 320 EXAM: CT Angiography Chest Without and With Intravenous Contrast CLINICAL HISTORY: Reason for exam: Anasarca. TECHNIQUE: Axial computed tomographic angiography images of the chest without and with intravenous contrast. CTDI is 25.96 mGy and DLP is 2344.38 mGy-cm. Automated exposure control was utilized for the study. A dose lowering technique was utilized adhering to the principles of ALARA. MIP reconstructed images were created and reviewed. CONTRAST: Patient received 119 ml optiray 320 of IV contrast COMPARISON: 09/23/2023. FINDINGS: The exam is limited due to artifact. It is further limited due to poor contrast bolus. Pulmonary arteries: No definite central pulmonary embolism is seen.. Aorta: There are atherosclerotic changes. No thoracic aortic aneurysm or dissection. Lungs: No mass. No consolidation. Pleural space: No significant effusion. No pneumothorax. Heart: Heart is normal in size.. Bones/joints: There is a mild scoliosis with mild degenerative changes. Soft tissues: Unremarkable. Lymph nodes: No enlarged lymph nodes. Vasculature: There is stenosis noted in the left subclavian vein. IMPRESSION: Limited exam. No evidence of thoracic aortic aneurysm or dissection. Electronically signed by: Justino Vasquez MD 04/12/24 00:43 AM [place] a-port check 04/12/2024 CLINICAL HISTORY: Deaccessed, IV team recommended a port study COMPARISON STUDY: CTA chest 04/11/2024 FLUOROSCOPY TIME: 26 seconds FLUOROSCOPY IMAGES: 75 Ka,r: 9.13 mGy FINDINGS: 10 cc Optiray 320 was injected into the patient's Cnsayu-r-Gqnc catheter. Abnormal appearance of the flow jet of contrast along the distal catheter as in the contrast stream refluxes and demonstrates turbulent flow along several centimeters and eventually diffuses into the SVC and right atrium. There is increased pressure within the syringe as the contrast was injected with difficulty. IMPRESSION: Findings compatible with fibrin sheath along the distal aspect of the Wlloyc-f-Pyhs catheter. ACT 112: Negative or not required by law. Electronically signed by: Sarabjit Rojas M.D. 04/12/2024 11:31 AM PG Care Time/CCT Total # of Minutes Spent Total Time Spent with Patient: Total time spent is greater than 50% in coordination of care (as documented) at patient's floor/unit and/or counseling patient: Coding Level of Care Code 82964 SUB INP/OBS CARE 3/50MIN Diagnoses Adrenal insufficiency E27.40 Gisele-Danlos syndrome Q79.60 GERD (gastroesophageal reflux disease) K21.9
[2024-04-12] MEDS: LEVOTHYROXINE SODIUM 125 MCG TABLET PO ONE (10:15)
[2024-04-12] MEDS: HEPARIN 100 UNIT/ML 5ML FLUSH FLUSH PRN (10:41)
--- NOTE | 2024-04-12 11:33 | Fluoroscopy Report ---
[place] a-port check CLINICAL HISTORY: Deaccessed, IV team recommended a port study COMPARISON STUDY: CTA chest 04/11/2024 FLUOROSCOPY TIME: 26 seconds FLUOROSCOPY IMAGES: 75 Ka,r: 9.13 mGy FINDINGS: 10 cc Optiray 320 was injected into the patient's Yjnich-c-Jgos catheter. Abnormal appearan ce of the flow jet of contrast along the distal catheter as in the contrast stream refluxes and demon strates turbulent flow along several centimeters and eventually diffuses into the SVC and right atriu m. There is increased pressure within the syringe as the contrast was injected with difficulty. IMPRESSION: Findings compatible with fibrin sheath along the distal aspect of the Vhhlna-l-Ygwb giovanny ter. ACT 112: Negative or not required by law. Electronically signed by: Sarabjit Rojas M.D. 04/12/2024 11:31 AM
[2024-04-12] MEDS: ALPRAZolam 0.5 MG TABLET PO PRN (11:41)
[2024-04-12] MEDS: HEPARIN 100 UNIT/ML 5ML FLUSH ONE (14:14)
[2024-04-12] MEDS ORDERED: LOPERAMIDE HCL 2 MG CAP PO PRN (18:00)
[2024-04-12] MEDS: LACTATED RINGER'S 1,000 ML IV ONE (18:09)
[2024-04-13] MEDS: LEVOTHYROXINE SODIUM 125 MCG TABLET PO SCH (05:42)
[2024-04-13 08:51] LABS: Basophils # (auto) 0.03 K/uL (0.00-0.20); Basophils % (auto) 0.2 %; Eosinophils # (auto) 0.02 K/uL (0.00-0.50); Eosinophils % (auto) 0.1 %; Hematocrit (blood only) 37.3 % (37.0-47.0); Immature Granulocytes # (auto) 0.19 K/uL (0.01-0.20); Immature Granulocytes % (auto) 1.2 %; Lymphocytes # (auto) 2.66 K/uL (1.20-3.40); Lymphocytes % (auto) 16.8 %; Mean Corpuscular Hemoglobin 30.7 pg (25.0-34.0); Mean Corpuscular Hgb Conc 32.2 g/dL (32.0-36.0); Mean Corpuscular Volume 95.4 fL (80.0-100.0); Mean Platelet Volume 9.3 fL (9.4-12.4); Monocytes % (auto) 7.6 %; Neutrophils # (auto) 11.75 K/uL (1.40-6.50); Neutrophils % (auto) 74.1 %; Platelet Count 273 K/uL (130-400); RDW Coefficient of Variation 13.4 % (11.5-14.5); Red Blood Count 3.91 M/uL (4.20-5.40); White Blood Count 15.85 K/ul (4.8-10.8)
[2024-04-13 09:01] LABS: Albumin Globulin Ratio 1.3 (0.9-2); Albumin Level 3.8 gm/dl (3.4-5.0); BUN Creatinine Ratio 16.7 (10-20); Bilirubin,Total 0.2 mg/dl (0.2-1.0); Creatinine Clr Calc Pharmacy 94.7 ml/min; Est GFR (African American) 71.1 ml/min; Est GFR (Non-African American) 61.4 ml/min; Globulin 2.9 gm/dl (2.5-4.0); Potassium 3.9 mmol/L (3.5-5.1); Total Protein 6.7 gm/dl (6.0-8.3)
[2024-04-13] MEDS: MoRPHine SULFATE 4 MG/ML 1 ML CARP\\VIAL IV ONE (16:49)
--- NOTE | 2024-04-13 16:50 | Hospitalist Progress Note ---
Date of Service April 13, 2024 Assessment & Plan (1) Adrenal insufficiency: Plan: Adrenal insufficiency - Primary symptom for being here is that of fatigue and likely adrenal insufficiency - Per review of outpatient endocrinology notes, patient does have a low cortisol level at baseline but did pass a cosyntropin stim test technically (stimmed to >18). She was still trialed on p.o. steroids, however her symptoms of dizziness/weakness did not notably improve. she had facial swelling while on oral hydrocortisone - change IV hydrocortisone to Solu-Medrol 8 mg p.o. twice a day, assess response. midodrine held because blood pressure has been high today - recent reviewed recent endocrinology note which states that pituitary labs have been within normal limits, will review outside labs - ordered overnight oximetry study to screen for NATACHA, given the prominent fatigue - a.m. cortisol not drawn because she was already on IV steroids from the ED at the time she was admitted (2) Gisele-Danlos syndrome: Plan: - Continue routine medications for Gisele-Danlos - Continue chronic pain medications morphine sulfate. Continue Narcan - resume meloxicam since she is having pain flare (3) GERD (gastroesophageal reflux disease): Plan: GERD/chronic biliary emesis/chronic gallbladder dysfunction/gastroparesis- - Patient has had significant workup in the past, including during hospitalization from 01/07-01/11/2024 - Continue cholestyramine - Used to follow with [facility] (specifically Dr. Ramirez) but referrals have been made for her to see [facility] - Started colestipol 1 g twice daily for bile acid sequestrant. Increase as needed. - Started Pepto as needed for dyspepsia. this specifically seems to be helping - continue as needed Imodium Hypomagnesemia- - Magnesium 1.6 on admission - Repleted and augmented appropriately to 2.4 Plan poor venous access central venous access [id number] has been slow to flush and difficult to access, port study done 04/12 by IR shows fibrin sheath at tip of port. will investigate whether anything can be done with this besides replacing the port leg edema - certainly aggravated by frequent IV saline as an outpatient, CTA chest and abdomen notable only for some stenosis of left subclavian vein acute on chronic polyarticular joint pain, especially back pain. trial morphine 4 mg IV x 1 per her request. Continue extended release oral morphine, continue muscle relaxers and Sinemet she met with behavioral health liaison 04/12 she will continue on her current medications for depression and anxiety and continue to follow-up with her outpatient therapist VTE PPx: SCDs CODE STATUS: Full code Admission and Anticipated Discharge Date Admission Date: April 10, 2024 Subjective Carmi better after initial dose of steroids given at admission, but effect seems to have waned and not clearly better than [employer] at this time Fatigue and brain fog are prominent Has been blowing IVs, fibrin sheath present on tip of port-a-cath LUE swelling and ecchymosis at site of IV infiltration, continues to have some weeping Back pain has been severe last three weeks or so Physical Exam 2 Physical Exam: PHYSICAL EXAMINATION Last 24h vital signs reviewed, see documentation in flowsheet General: sitting upright on bed HEENT: Normocephalic, atraumatic, pupils round and equal, sclerae anicteric, no conjunctival injection, moist mucus membranes Lungs: Normal respiratory effort. Heart: deferred chest: Port-A-Cath site right upper chest not currently accessed, no swelling or redness Extremities: Warm, dry, well-perfused. leg edema. ecchymosis and swelling left upper medial arm, no evidence of severe tissue injury from infiltration Neuro: Alert and oriented x 4, face symmetric, moves 4 extremities well Psych: Normal affect and behavior Results & Data Results & Data Vital Signs (Past 12 Hours) Vital Signs Temp Pulse Resp BP Pulse Ox O2 Del Method 04/13/24 12:20 18 156/93 H 96 Room Air 04/13/24 08:20 86 20 134/85 96 Room Air 04/13/24 07:21 36.6 C 63 18 108/71 96 Room Air Laboratory Results 04/13/24 08:22 04/13/24 08:22 PG Care Time/CCT Total # of Minutes Spent Total Time Spent with Patient: I personally spent: 65 minutes today on clinical care activities including: reviewing chart notes and vital signs reviewing studies examining and counseling the patient reviewing outpatient records writing orders documentation Coding Level of Care Code 54882 SUB INP/OBS CARE 3/50MIN Diagnoses Adrenal insufficiency E27.40 Gisele-Danlos syndrome Q79.60 GERD (gastroesophageal reflux disease) K21.9
[2024-04-13] MEDS: methylPREDNISolone 4 MG TAB PO SCH (17:01)
[2024-04-13] MEDS: MoRPHine SULFATE 2 MG/ML CARP IV ONE (22:12)
--- NOTE | 2024-04-14 16:33 | Hospitalist Progress Note ---
Date of Service April 14, 2024 Assessment & Plan (1) Adrenal insufficiency: Plan: Adrenal insufficiency - Primary symptom for being here is that of fatigue, nausea/vomiting and likely adrenal insufficiency - Per review of outpatient endocrinology notes, patient does have a low cortisol level at baseline but did pass a cosyntropin stim test technically (stimmed to >18). She was still trialed on p.o. steroids, however her symptoms of dizziness/weakness did not notably improve. she had facial swelling while on oral hydrocortisone - changed IV hydrocortisone to Solu-Medrol 8 mg p.o. twice a day, doing well on this so far. midodrine held because blood pressure has been high in 140s-160s - recent reviewed recent endocrinology note which states that pituitary labs have been within normal limits - ordered overnight oximetry study to screen for NATACHA, given the prominent fatigue - a.m. cortisol not drawn because she was already on IV steroids from the ED at the time she was admitted - reviewed primary care note from 02/24/24 Dr. Ashley. Has appt in a few weeks. Left message to discuss. 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 Continue Narcan - resume meloxicam since she is having pain flare (3) GERD (gastroesophageal reflux disease): Plan: GERD/chronic biliary emesis/chronic gallbladder dysfunction/gastroparesis- - Patient has had significant workup in the past, including during hospitalization from 01/07-01/11/2024 - Continue cholestyramine - Used to follow with [facility] (specifically Dr. Ramirez) but referrals have been made for her to see [facility] - Started colestipol 1 g twice daily for bile acid sequestrant. Increase as needed. - Started Pepto as needed for dyspepsia. this specifically seems to be helping - continue as needed Imodium - eating well at this point, nausea/vomiting resolved Hypomagnesemia- - Magnesium 1.6 on admission - Repleted and augmented appropriately to 2.4 - Usually does 2g IV mag weekly at home Plan poor venous access central venous access [id number] has been slow to flush and difficult to access, port study done 04/12 by IR shows fibrin sheath at tip of port. gave dose of cathflo this AM to see if helps with the fibrin/flushing. Discussed with IV team nurse - she said port flushed and wolf easily for her when accessed at time of admission but seems to be tipped / rolling or moving so needle comes out of pocket, then she had difficulty and was unable to re-access it. Currently has adequate PIVs. Shu has been able to use it at home. Best course of action at this time is for her to follow up with the placing surgeon in [place] and see if it can be revised vs alternative access. leg edema - certainly aggravated by frequent IV saline as an outpatient, CTA chest and abdomen notable only for some stenosis of left subclavian vein. On my exam I see only very mild LE pitting edema. Has gained significant amount of weight since December. acute on chronic polyarticular joint pain, especially back pain. Had extre morphine last night. Continue extended release oral morphine, continue muscle relaxers and Sinemet she met with behavioral health liaison 04/12 she will continue on her current medications for depression and anxiety and continue to follow-up with her outpatient therapist discussed with care coordination VTE PPx: SCDs Admission and Anticipated Discharge Date Admission Date: April 10, 2024 Subjective Feeling better today overall, has been up and around room and in bathroom, still lightheadedness with standing but has been manageable LUE ecchymosis/swelling from IV infiltration unchanged Nausea/vomiting resolved and tolerating po intake well at this point Physical Exam 2 Physical Exam: PHYSICAL EXAMINATION Last 24h vital signs reviewed, see documentation in flowsheet General: sitting EOB eating early dinner HEENT: Normocephalic, atraumatic, pupils round and equal, sclerae anicteric, no conjunctival injection, moist mucus membranes Lungs: Normal respiratory effort. Heart: deferred chest: Port-A-Cath site right upper chest not currently accessed, no swelling or redness Extremities: Warm, dry, well-perfused. leg edema with very mild pitting. no pitting upper extremities. ecchymosis and swelling left upper medial arm unchanged 04/14 Neuro: Alert and oriented x 4, face symmetric, moves 4 extremities well Psych: Normal affect and behavior Results & Data Results & Data Vital Signs (Past 12 Hours) Vital Signs Temp Pulse Resp BP Pulse Ox O2 Del Method 04/14/24 11:45 Room Air 04/14/24 07:33 36.7 C 85 18 168/89 H 93 Room Air Laboratory Results 04/13/24 08:22 04/13/24 08:22 PG Care Time/CCT Total # of Minutes Spent Total Time Spent with Patient: Total time spent is greater than 50% in coordination of care (as documented) at patient's floor/unit and/or counseling patient: Coding Level of Care Code 51684 SUB INP/OBS CARE 2/35MIN Diagnoses Adrenal insufficiency E27.40 Gisele-Danlos syndrome Q79.60 GERD (gastroesophageal reflux disease) K21.9
[2024-04-14] MEDS: ALTEPLASE, RECOMBINANT 1 MG/ML 2ML VIAL INSTIL ONE (17:08)
[2024-04-14] MEDS: diphenhydrAMINE Capsule 25 MG CAP PO PRN (17:15)
[2024-04-14] MEDS: MoRPHine SULFATE 2 MG/ML CARP IV STA (23:31)
--- NOTE | 2024-04-15 16:53 | Hospitalist Progress Note ---
Date of Service April 15, 2024 Assessment & Plan (1) Adrenal insufficiency: Plan: Adrenal insufficiency - Primary symptom for being here is that of fatigue, nausea/vomiting and likely adrenal insufficiency - Per review of outpatient endocrinology notes, patient does have a low cortisol level at baseline but did pass a cosyntropin stim test technically (stimmed to >18). She was still trialed on p.o. steroids, however her symptoms of dizziness/weakness did not notably improve. she had facial swelling while on oral hydrocortisone. I reviewed prior pituitary labs in [facility] and they were all normal this summer. Cortisol not drawn this admission because ED had already given IV hydrocortisone - seems to have improved since admission on trial of steroids. decrease medrol to 8 mg daily, then plan to discharge on prednisolone 10 mg x 3-5 days then 5 mg daily. Has Rx for this at pharmacy from PCP already (2) Gisele-Danlos syndrome: Plan: - Continue routine medications for Gisele-Danlos - Continue chronic pain medications morphine sulfate - plans to transition to suboxone as outpatient with her PCP. I told her this sounds like a good idea. Continue naloxone. (3) GERD (gastroesophageal reflux disease): Plan: GERD/chronic biliary emesis/chronic gallbladder dysfunction/gastroparesis- - significant workup in the past, including during hospitalization from 01/07- 01/11/2024 - Continue pyridostigmine which she uses for her pyloric stenosis - Cont colestipol 1 g twice daily for bile acid sequestrant. Increase as needed. She has this at home, unclear whether helpful. - Started Pepto as needed for dyspepsia. this specifically seems to be helping - continue as needed Imodium - eating well at this point, vomiting resolved, nausea controlled - typically uses 25 mg IV benadryl at home for refractory GI symptoms but is out of this Hypomagnesemia- - Magnesium 1.6 on admission - Repleted and augmented appropriately to 2.4 - Usually does 2g IV mag weekly at home - Check in AM Plan poor venous access central venous access [id number] has been slow to flush and difficult to access, port study done 04/12 by IR shows fibrin sheath at tip of port. gave dose of cathflo this AM to see if helps with the fibrin/flushing. Discussed with IV team nurse - she said port flushed and wolf easily for her when accessed at time of admission but seems to be tipped / rolling or moving so needle comes out of pocket, then she had difficulty and was unable to re-access it. Currently has adequate PIVs. Shu has been able to use it at home. Best course of action at this time is for her to follow up with the placing surgeon in [place] and see if it can be revised vs alternative access. IV infiltration site LUE - has been weeping, discussed with MAREN and optifoam is an appropriate dressing to continue. Improving. No e/o severe tissue injury, infiltration was crystalloid. leg edema - certainly aggravated by frequent IV saline as an outpatient, CTA chest and abdomen notable only for some stenosis of left subclavian vein. On my exam I see only very mild LE pitting edema. Has gained significant amount of weight since December. acute on chronic polyarticular joint pain, especially back pain. Continue extended release oral morphine, continue muscle relaxers and Sinemet which she uses for spasms and finds very helpful she met with behavioral health liaison 04/12 she will continue on her current medications for depression and anxiety and continue to follow-up with her outpatient therapist discussed with care coordination VTE PPx: SCDs Admission and Anticipated Discharge Date Admission Date: April 10, 2024 Subjective doing ok today still lightheadedness when up OOB, unchanged GI symptoms remain better controlled on pepto bismol At home uses IV benadryl for refractory nausea and GI spasm though is run out Has magnesium and IV fluids and one bag of tylenol IV LUE PIV site still weepy Physical Exam Physical Exam: PHYSICAL EXAMINATION Last 24h vital signs reviewed, see documentation in flowsheet General: sitting EOB eating early dinner HEENT: Normocephalic, atraumatic, pupils round and equal, sclerae anicteric, no conjunctival injection, moist mucus membranes Lungs: Normal respiratory effort. Heart: deferred chest: Port-A-Cath site right upper chest not currently accessed, no swelling or redness Extremities: Warm, dry, well-perfused. leg edema with very mild pitting - unchanged. no pitting upper extremities. ecchymosis and swelling left upper medial arm - now soft, ecchymosis evolving, covered by optifoam Neuro: Alert and oriented x 4, face symmetric, moves 4 extremities well Psych: Normal affect and behavior Results & Data Results & Data Vital Signs (Past 12 Hours) Vital Signs Temp Pulse Resp BP Pulse Ox O2 Del Method 04/15/24 07:27 36.8 C 76 18 138/82 94 Room Air PG Care Time/CCT Total # of Minutes Spent Total Time Spent with Patient: I personally spent: 60 minutes today on clinical care activities including: reviewing chart notes and vital signs reviewing labs - prior endo labs discussion with access consultant(s) - WON discussion with director long term care examining and counseling the patient writing orders documentation Coding Level of Care Code 04297 SUB INP/OBS CARE 3/50MIN Diagnoses Adrenal insufficiency E27.40 Gisele-Danlos syndrome Q79.60 GERD (gastroesophageal reflux disease) K21.9
[2024-04-16 08:12] VITALS: RESP 18; TEMP 98.6; O2SAT 93
[2024-04-16 14:00] VITALS: BP 147/80; PULSE 106
[2024-04-16] MEDS: diphenhydrAMINE 50 MG/ML VIAL IV ONE (14:15)
[2024-04-16] MEDS: MoRPHine SULFATE 2 MG/ML CARP IV STA (14:15)
--- NOTE | 2024-04-16 18:46 | Discharge Summary ---
Discharge Summary Date of Service April 16, 2024 Principal Dx & Hospital Course #1 = Principal Diagnosis (1) Adrenal insufficiency: Adrenal insufficiency - Primary symptom for being here is that of fatigue, nausea/vomiting and likely adrenal insufficiency - in the past has had multiple low baseline AM cortisol levels (1.27 on 09/02/22 and 0.8 on 01/10/24) though had cosyntropin stim test with good response (2.73-->19.1 at 60 minutes) this summer. ACTH has been normal at 10, 16. - I saw her in December 2023 and at that time she was having kendra hypotension to BP 60/40 despite IV fluids with multiple recent falls, syncope, presyncope, and had excellent response to steroids - had trial of outpatient hydrocortisone over this summer (unclear how long) but did not appreciate much improvement in symptoms and had facial swelling while on po hydrocortisone - this could possibly be secondary adrenal insufficiency because she did have several steroid joint injections winter/spring 2023 but reports none since - she reports history of high cortisol level of unknown cause but that was over 10 years ago and that [place]'s was ruled out - those records from [facility] are in scan docs and I reviewed this summer - this admission was started on IV hydrocortisone by ED before we were able to order an AM cortisol level. I think that she again had a good response to steroids and seemed to be more well, also no IV fluids were given for four days and blood pressure remained robust actually mildly hypertensive. She continued to report lightheadedness with standing. GI symptoms significantly improved and she was able to eat well without nausea/vomiting. -IV hydrocortisone was tapered to oral solumedrol 8 bid then 8 daily, then plan to discharge on prednisolone 10 mg x 3-5 days then 5 mg daily. Has Rx for this at pharmacy from PCP already to peanut picker -the hope is she will be able to wean off all the extra IV fluids thus improve her edema problems. She will monitor her BP and midodrine can be stopped if too hypertensive (2) Gisele-Danlos syndrome: - Continue routine medications for Gisele-Danlos - Continue chronic pain medications morphine sulfate - plans to transition to suboxone as outpatient with her PCP. I told her this sounds like a good idea. Continue naloxone. (3) GERD (gastroesophageal reflux disease): GERD/chronic biliary emesis/chronic gallbladder dysfunction/gastroparesis- - significant workup in the past, including during hospitalization from 01/07- 01/11/2024 - Continue pyridostigmine which she uses for her pyloric stenosis - Started Pepto as needed for dyspepsia. this specifically seems to be helping (or the steroids are helping) - eating well at this point, vomiting resolved, nausea controlled - typically uses 25 mg IV benadryl at home for refractory GI symptoms but is out of this Hypomagnesemia- - Magnesium 1.6 on admission - Repleted and augmented appropriately to 2.4 - Usually does 2g IV mag weekly at home Plan poor venous access central venous access [id number] has been slow to flush and difficult to access, port study done 04/12 by IR shows fibrin sheath at tip of port. gave dose of cathflo to see if helps with the fibrin/flushing. Discussed with IV team nurse - she said port flushed and wolf easily for her when accessed at time of admission but seems to be tipped / rolling or moving so needle comes out of pocket, then she had difficulty and was unable to re-access it. Shu has been able to use it at home. We gave her some access supplies. Best course of action at this time is for her to follow up with the placing surgeon in [place] and see if it can be revised vs alternative access. IV infiltration site CHANTALE ENGEL consulted and optifoam is an appropriate dressing to continue. Improving. No e/o severe tissue injury, infiltration was crystalloid. leg edema - certainly aggravated by frequent IV saline as an outpatient, CTA chest and abdomen notable only for some stenosis of left subclavian vein. On my exam I see only very mild LE pitting edema. Has gained significant amount of weight since December. acute on chronic polyarticular joint pain, especially back pain. Continue extended release oral morphine, continue muscle relaxers and Sinemet which she uses for spasms and finds very helpful she met with behavioral health liaison 04/12 she will continue on her current medications for depression and anxiety and continue to follow-up with her outpatient therapist Notes For Next Care Provider Medication Changes From Visit prednisolone 10 mg daily for a few days then will decrease to 5 mg daily Admission HPI Per Admitting Provider Patient is a 39-year-old female with past medical history including Gisele- Danlos syndrome, adrenal insufficiency, lower extremity edema, obesity, chronic venous insufficiency, chronic diarrhea, chronic biliary emesis, migraine without aura, GERD, hypothyroidism, CKD stage III, B12 deficiency, osteogenesis imperfecta, lymphocytic colitis, Port-A-Cath in right upper chest, mast cell activation syndrome, anxiety and depression, and gastroparesis. The patient presents to the emergency department with 3 main symptoms as noted above. Discharge Exam PHYSICAL EXAMINATION Last 24h vital signs reviewed, see documentation in flowsheet General: sitting EOB looks good today HEENT: Normocephalic, atraumatic, pupils round and equal, sclerae anicteric, no conjunctival injection, moist mucus membranes Lungs: Normal respiratory effort. Heart: deferred chest: Port-A-Cath site right upper chest not currently accessed, no swelling or redness Extremities: Warm, dry, well-perfused. leg edema with very mild pitting - unchanged. no pitting upper extremities. ecchymosis and swelling left upper medial arm - now soft, ecchymosis evolving, covered by optifoam Neuro: Alert and oriented x 4, face symmetric, moves 4 extremities well Psych: Normal affect and behavior Discharge Plan Discharge Items Patient Disposition: Home - Self-Care Reason For Visit: ADRENAL INSUFFICIENCY Discharge Diagnosis: adrenal insufficiency Condition on Discharge: Good Activity: Resume your previous activity Non-emergency contact: Primary Care Provider Call non-emergency contact if: you have any medication questions and your symptoms worsen Follow-up/Referrals: Linus Ashley III, DO [Primary Care Provider] - 04/21/24 10:45 am (Appointment will be with Loretta Macedo) Diet: Regular Addtl Attending Provider Instructions: For the adrenal insufficiency Start taking prednisolone 10 mg qAM tomorrow - use this double dose for three days then decrease to 5 mg qAM Follow up with Dr. Ashley as scheduled Hopefully you can wean your IV fluids down and off if the steroids are helpful One possibility is by decreasing the weekly volume of fluid by 25% per week This will help a lot with resolving the edema Monitor your blood pressure - if its running higher than 150-160 you should hold your midodrine CTA head/neck, chest, abdomen and pelvis was notable for left subclavian vein stenosis - this is result of old central venous access Your port has been hard to access. Port study showed some fibrin at the tip but this doesn't seem to be a problem since it flushes and draws once it is accessed. Follow up with your general surgeon in [place] as soon as possible to have it evaluated. Pepto bismol seems like its been helping with your GI symptoms - you can buy this over the counter and use as directed. It can make your stool look dark/black Pending Studies at Discharge: No Stand-Alone Forms: [facility], Smoking Cessation Medications and DC Order Prescriptions: Continued (DME) IV admin extension set 60 " infusion set See Rx Instructions .Route Rx Instructions: USE ONCE EVERY OTHER DAY DIRECTED WITH SALINE INFUSION. (DME) IV admin extension set Infusion Set See Rx Instructions .Route Qty: 1 8RF Rx Instructions: IV admin extension set 60". Use once every other day as directed with saline infusion naloxone [Narcan] 4 mg/actuation spray,non-aerosol 4 mg intranasal Q2M PRN (Reason: opioid overdose) Qty: 2 0RF Rx Instructions: spray 1 dose into ONE nostril; alternate nostrils w each dose until help arrives esomeprazole magnesium 40 mg capsule,delayed release(DR/EC) 40 mg PO BID Qty: 180 3RF Rx Instructions: TAKE 1 CAPSULE BY MOUTH TWICE A DAY spironolactone 50 mg tablet 50 mg PO QAM Qty: 90 1RF hydroxyzine HCl 25 mg tablet See Rx Instructions .ROUTE .COMPLEX Qty: 90 11RF Dose Instruction: TAKE 1 TO 3 TABLETS BY MOUTH AT BEDTIME NEEDED FOR HIVES OR ALLERGIC REACTIONS Rx Instructions: TAKE 1 TO 3 TABLETS BY MOUTH AT BEDTIME NEEDED FOR HIVES OR ALLERGIC REACTIONS ergocalciferol (vitamin D2) 1,250 mcg (50,000 unit) capsule 1,250 mcg PO WK Qty: 14 3RF Rx Instructions: sundays morphine 15 mg tablet 7.5 mg PO BID PRN (Reason: severe breakthrough pain) Qty: 3 0RF Low Dose Naltrexone 4.5 mg PO DAILY Qty: 90 3RF Xolair 150 mg/mL syringe 300 mg subcut .COMPLEX Qty: 4 11RF Rx Instructions: INJECT 300 mg subcutaneously EVERY 2 WEEKS. PT TO SELF ADMINISTER AT HOME APPROVED Good 09/08/23-11/05/24 diphenhydramine HCl [Benadryl Allergy] 25 mg tablet 25 mg PO TID PRN (Reason: allergy symptoms) Qty: 10 0RF meloxicam 7.5 mg tablet 7.5 mg PO BID Qty: 180 0RF Hold Instructions: did not start yet Patient Comments: has not yet started 06/23/23 levothyroxine [Tirosint] 125 mcg capsule 125 mcg PO DAILY Qty: 30 2RF Rx Instructions: pl give Tirosint only as patient does not respond to levothyroxine ascorbic acid (vitamin C) 1,000 mg tablet 1 g PO BID ondansetron 8 mg tablet,disintegrating 8 mg PO Q8H PRN (Reason: nausea and vomiting) Qty: 90 3RF carbidopa-levodopa 25-100 mg tablet 1 tab PO BID cromolyn 100 mg/5 mL concentrate 200 mg PO QID Kyleena 17.5 mcg/24 hrs (5 yrs) 19.5 mg intrauterine device 1 device intrauterine CONT Rx Instructions: PT STATES THAT SHE HAS BOTH KYLEENA AND NUVARING- PLEASE DO NOT REMOVE olopatadine [Patanase] 0.6 % spray,non-aerosol 2 spray intranasal BID Qty: 30.5 11RF Rx Instructions: administer into each nostril epinephrine [EpiPen 2-Marlo] 0.3 mg/0.3 mL auto-injector 0.3 mg IM Q4H PRN (Reason: anaphylaxis) Qty: 2 3RF montelukast [Singulair] 10 mg tablet 10 mg PO QPM Qty: 90 3RF KETOTIFEN 2 mg PO DAILY Patient Comments: eye drop formulated to oral medication Nurtec ODT 75 mg tablet,disintegrating 75 mg PO UD PRN (Reason: Migraine Headache) Qty: 8 4RF Rx Instructions: 75 mg PO Take one tablet once a day as needed for migraine, max one dose per 24 hours, limit dosing to 2-3 times per week; lemborexant 5 mg tablet 10 mg PO HS loratadine [Claritin] 10 mg tablet 10 mg PO BID cyclobenzaprine 10 mg tablet 20 mg PO QAM Qty: 180 3RF pyridostigmine bromide 60 mg tablet 60 mg PO BID Qty: 60 11RF famotidine 40 mg tablet 40 mg PO BID Qty: 180 3RF midodrine 5 mg tablet 5 mg PO TID Qty: 90 5RF Rx Instructions: do not give last dose of day after 6PM or within 4 hrs of bedtime tizanidine 2 mg tablet 2 mg PO HS morphine 15 mg tablet extended release 15 mg PO BID Qty: 60 0RF etonogestrel-ethinyl estradiol [EluRyng] 0.12-0.015 mg/24 hr ring 1 vag ring VAGINAL MONTHLY Rx Instructions: Friday liothyronine [Cytomel] 5 mcg tablet 5 mcg PO 3XWK Patient Comments: m/w/f Rx Instructions: friday,friday,friday melatonin 10 mg Tablet 10 mg PO HS Magnesium Sulfate In Lac Ring 2 g IV DIRECTED Rx Instructions: Weekly, over 1 hour amoxicillin 500 mg tablet 2,000 mg PO ONCE PRN (Reason: Other) Rx Instructions: Take 4 tablets 1 hour before dental procedure cyanocobalamin (vitamin B-12) 1,000 mcg/mL solution 1,000 mcg IM .EVERY 14 DAYS Rx Instructions: sundays lactated Ringers Parenteral Solution 1 ea IV .COMPLEX Rx Instructions: 1 ea intravenously QOD ; 1 liter alprazolam 2 mg tablet,disintegrating 2 mg PO TID PRN (Reason: Anxiety) colesevelam [WelChol] 625 mg tablet 1,250 mg PO DAILY Patient Comments: not currently taking 06/23/23 magnesium glycinate 480 mg PO HS Discharge Orders: Discharge Order (Routine); Ordered 04/16/24 Ordered By: Loretta Franklin Admission Data Admit Date/Time: 04/10/24 03:46 Attending Provider: Loretta Franklin Admit Provider: Pino Jeong Primary Care Provider: Linus Ashley III Other Providers: Pino Jeong Other Interventions: Discharge Summary Assessment (RN) Last Done: 04/16/24 13:59 Hospital Stay Data Consultations 04/10/24 03:19 ED Decision to Admit Stat 04/12/24 17:55 Consult Behavioral Health Liaison Routine Diagnostic Imagining Performed 04/09/24 23:51 CT abd pelvis IV con only Stat 04/11/24 15:31 CTA head wo/w [CT angio head wo/w] Routine 04/11/24 15:37 CTA abd pelvis wo/w con [CT angio abd pelvis wo/w con] Routine CTA chest wo/w con [CT angio chest wo/w con] Routine 04/12/24 16:57 [place] a-port check Routine Chest X-Ray 04/09/24 22:20 XR chest 1V portable CLINICAL HISTORY: weakness TECHNIQUE: Single frontal radiograph of the chest was obtained. Comparison: Comparison is made to chest radiograph 01/08/2024 FINDINGS: A port catheter is seen. The cardiomediastinal silhouette is normal. The lungs are clear. No evidence of pleural effusion or pneumothorax. IMPRESSION: No acute chest disease. ACT 112: Negative or not required by law. Electronically signed by: Roge Lobo M.D. 04/10/2024 9:01 AM Abdomen/Pelvis CT 04/09/24 23:51 Exam(s): CT ABDOMEN + PELVIS With Contrast IV Amt: 92 ml opti 320 EXAM: CT Abdomen and Pelvis With Intravenous Contrast CLINICAL HISTORY: Reason for exam: mid abd pain. TECHNIQUE: Axial computed tomography images of the abdomen and pelvis with intravenous contrast. CTDI is 28.28 mGy and DLP is 1380.68 mGy-cm. Automated exposure control was utilized for the study. A dose lowering technique was utilized adhering to the principles of ALARA. CONTRAST: Patient received 92 ml opti 320 of IV contrast COMPARISON: CT abdomen/pelvis on 06/02/2023 FINDINGS: Lung bases: Unremarkable. No mass. No consolidation. ABDOMEN: Liver: Hepatic steatosis. Hepatomegaly. Gallbladder and bile ducts: Hyperdense material in the gallbladder may represent artifact versus stones/sludge. No ductal dilation. Pancreas: Unremarkable. No mass. No ductal dilation. Spleen: Unremarkable. No splenomegaly. Adrenals: Unremarkable. No mass. Kidneys and ureters: Unremarkable. No hydronephrosis or obstructing ureteral stone. Stomach and bowel: Evaluation of the stomach is limited by under distention. No mucosal thickening. No bowel obstruction or inflammation. PELVIS: Appendix: Appendix is not definitely visualized on this exam. Bladder: Mild prominence of the bladder wall may be secondary to underdistention. Please correlate with urinalysis if concerned for cystitis. Reproductive: Unremarkable as visualized. ABDOMEN and PELVIS: Intraperitoneal space: Unremarkable. No free air. No significant fluid collection. Bones/joints: No acute fracture. No dislocation. Soft tissues: Tiny fat-containing umbilical hernia. Vasculature: Unremarkable. No abdominal aortic aneurysm. Lymph nodes: Unremarkable. No enlarged lymph nodes. Tubes, lines and devices: Intrauterine device in place. IMPRESSION: 1. Mild prominence of the bladder wall may be secondary to underdistention. Please correlate with urinalysis if concerned for cystitis. 2. Hyperdense material in the gallbladder may represent artifact versus stones/sludge. Electronically signed by: Rell Du M.D. 04/10/24 02:15 AM Head CTA 04/11/24 15:31 Exam(s): CTA HEAD W/WO Contrast IV Amt: 119 ml optiray 320 EXAM: CT Angiography Head Without and With Intravenous Contrast CLINICAL HISTORY: Reason for exam: Anasarca. TECHNIQUE: Axial computed tomographic angiography images of the head without and with intravenous contrast. Automated exposure control was utilized for the study. A dose lowering technique was utilized adhering to the principles of ALARA. MIP reconstructed images were created and reviewed. CONTRAST: Patient received 119 ml optiray 320 of IV contrast COMPARISON: No relevant prior studies available. FINDINGS: VASCULATURE: Digital venous sinuses are patent. Right internal carotid artery: No acute findings. Intracranial segment is patent with no significant stenosis. No aneurysm. Right anterior cerebral artery: Unremarkable. No occlusion or significant stenosis. No aneurysm. Right middle cerebral artery: Unremarkable. No occlusion or significant stenosis. No aneurysm. Right posterior cerebral artery: Unremarkable. No occlusion or significant stenosis. No aneurysm. Right vertebral artery: Unremarkable as visualized. Left internal carotid artery: No acute findings. Intracranial segment is patent with no significant stenosis. No aneurysm. Left anterior cerebral artery: Unremarkable. No occlusion or significant stenosis. No aneurysm. Left middle cerebral artery: Unremarkable. No occlusion or significant stenosis. No aneurysm. Left posterior cerebral artery: Unremarkable. No occlusion or significant stenosis. No aneurysm. Left vertebral artery: Unremarkable as visualized. Basilar artery: Unremarkable. No occlusion or significant stenosis. No aneurysm. HEAD: Brain: No acute findings. No hemorrhage. No edema. Normal enhancement. Ventricles: Unremarkable. No ventriculomegaly. Bones/joints: No acute fracture. Soft tissues: Unremarkable. Sinuses: Unremarkable as visualized. No acute sinusitis. Mastoid air cells: Unremarkable as visualized. No mastoid effusion. IMPRESSION: Negative CT angiogram of the head. Electronically signed by: Kacey Bullock MD 04/12/24 00:23 AM Abdomen/Pelvis CTA 04/11/24 15:37 Exam(s): CTA ABDOMEN + PELVIS W/WO Contrast IV Amt: 119 ml optiray 320 EXAM: CT Abdomen and Pelvis Without and With Intravenous Contrast CLINICAL HISTORY: Reason for exam: Anasarca. TECHNIQUE: Axial computed tomographic images of the abdomen and pelvis without and with intravenous contrast. CTDI is 25.96 mGy and DLP is 2344.38 mGy-cm. Automated exposure control was utilized for the study. A dose lowering technique was utilized adhering to the principles of ALARA. CONTRAST: Patient received 119 ml optiray 320 of IV contrast COMPARISON: No relevant prior studies available. FINDINGS: The exam is limited due to artifact. It is further limited due to poor contrast bolus. VASCULATURE: Aorta: No aneurysm is seen. No dissection. Celiac trunk and mesenteric arteries: No occlusion or significant stenosis. Renal arteries: . No occlusion or significant stenosis. Iliac arteries: No occlusion or significant stenosis. ABDOMEN: Liver: The liver is enlarged and of diffuse decreased attenuation. Gallbladder and bile ducts: No calcified stones. No ductal dilation. Pancreas: No ductal dilation. No mass. Spleen: No splenomegaly. Adrenals: No mass. Kidneys and ureters: No obstructing stones. No hydronephrosis. No solid mass. Stomach and bowel: The stomach is distended containing a large amount of retained foodstuffs. There is air and stool noted in the colon.. PELVIS: Appendix: No findings to suggest acute appendicitis. Bladder: No calculi are noted within the bladder.. Reproductive: An IUD is noted within the uterus.. ABDOMEN and PELVIS: Intraperitoneal space: No significant fluid collection. No free air. Bones/joints: There are mild degenerative changes in the spine.. Soft tissues: Unremarkable. Lymph nodes: No enlarged lymph nodes. IMPRESSION: No evidence of abdominal aortic aneurysm or dissection. Liver is enlarged and of diffuse decreased attenuation which may be due to fatty infiltration. Electronically signed by: Justino Vasquez MD 04/12/24 00:48 AM Chest CTA 04/11/24 15:37 Exam(s): CTA CHEST W/WO Contrast IV Amt: 119 ml optiray 320 EXAM: CT Angiography Chest Without and With Intravenous Contrast CLINICAL HISTORY: Reason for exam: Anasarca. TECHNIQUE: Axial computed tomographic angiography images of the chest without and with intravenous contrast. CTDI is 25.96 mGy and DLP is 2344.38 mGy-cm. Automated exposure control was utilized for the study. A dose lowering technique was utilized adhering to the principles of ALARA. MIP reconstructed images were created and reviewed. CONTRAST: Patient received 119 ml optiray 320 of IV contrast COMPARISON: 09/23/2023. FINDINGS: The exam is limited due to artifact. It is further limited due to poor contrast bolus. Pulmonary arteries: No definite central pulmonary embolism is seen.. Aorta: There are atherosclerotic changes. No thoracic aortic aneurysm or dissection. Lungs: No mass. No consolidation. Pleural space: No significant effusion. No pneumothorax. Heart: Heart is normal in size.. Bones/joints: There is a mild scoliosis with mild degenerative changes. Soft tissues: Unremarkable. Lymph nodes: No enlarged lymph nodes. Vasculature: There is stenosis noted in the left subclavian vein. IMPRESSION: Limited exam. No evidence of thoracic aortic aneurysm or dissection. Electronically signed by: Justino Vasquez MD 04/12/24 00:43 AM Tube Check 04/12/24 16:57 FL a-port check CLINICAL HISTORY: Deaccessed, IV team recommended a port study COMPARISON STUDY: CTA chest 04/11/2024 FLUOROSCOPY TIME: 26 seconds FLUOROSCOPY IMAGES: 75 Ka,r: 9.13 mGy FINDINGS: 10 cc Optiray 320 was injected into the patient's Lepmka-b-Movt catheter. Abnormal appearance of the flow jet of contrast along the distal catheter as in the contrast stream refluxes and demonstrates turbulent flow along several centimeters and eventually diffuses into the SVC and right atrium. There is increased pressure within the syringe as the contrast was injected with difficulty. IMPRESSION: Findings compatible with fibrin sheath along the distal aspect of the Yougaq-y-Glgi catheter. ACT 112: Negative or not required by law. Electronically signed by: Sarabjit Rojas M.D. 04/12/2024 11:31 AM 04/13/24 08:22 04/13/24 08:22 Pending Results Patient Have Any Pending Studies at Discharge: No Discharge Instructions Given to Patient (Per Discharging Provider) For the adrenal insufficiency Start taking prednisolone 10 mg qAM tomorrow - use this double dose for three days then decrease to 5 mg qAM Follow up with Dr. Ashley as scheduled Hopefully you can wean your IV fluids down and off if the steroids are helpful One possibility is by decreasing the weekly volume of fluid by 25% per week This will help a lot with resolving the edema Monitor your blood pressure - if its running higher than 150-160 you should hold your midodrine CTA head/neck, chest, abdomen and pelvis was notable for left subclavian vein stenosis - this is result of old central venous access Your port has been hard to access. Port study showed some fibrin at the tip but this doesn't seem to be a problem since it flushes and draws once it is accessed. Follow up with your general surgeon in [place] as soon as possible to have it evaluated. Pepto bismol seems like its been helping with your GI symptoms - you can buy this over the counter and use as directed. It can make your stool look dark/black Total Time Total Time Spent Total Time Spent (In Minutes): I personally spent: 40 minutes today on clinical care activities including: reviewing chart notes and vital signs discussion with IV team, bedside nurse examining and counseling the patient writing orders, discharge instructions documentation Coding Level of Care Code 52394 INP/OBS DISCH >30 MIN Diagnoses Adrenal insufficiency E27.40 Gisele-Danlos syndrome Q79.60 GERD (gastroesophageal reflux disease) K21.9
[2024-04-17] MEDS ORDERED: methylPREDNISolone 4 MG TAB PO SCH (09:00)
== END 2024-04-16 14:30 | disposition home or self-care (01) | DRG 644 ==
LOC: ED 21:45 → SUATTDRO 04-10 03:46 → EDINP 04-10 05:44 → 2E 04-10 12:54 → 3W 04-12 22:13
DX: K21.9 Gastro-esophageal reflux disease without esophagitis; Q79.60 Ehlers-Danlos syndrome, unspecified; R60.0 Localized edema; K31.84 Gastroparesis; Y92.239 Unspecified place in hospital as the place of occurrence of the external cause; Z95.828 Presence of other vascular implants and grafts; U07.0 Vaping-related disorder; R45.851 Suicidal ideations; M25.59 Pain in other specified joint; F41.9 Anxiety disorder, unspecified; F32.9 Major depressive disorder, single episode, unspecified; Z88.7 Allergy status to serum and vaccine; K52.832 Lymphocytic colitis; N39.0 Urinary tract infection, site not specified; E27.40 Unspecified adrenocortical insufficiency; E83.42 Hypomagnesemia; Z91.040 Latex allergy status; Z79.891 Long term (current) use of opiate analgesic; T82.898A Other specified complication of vascular prosthetic devices, implants and grafts, initial encounter; Y71.2 Prosthetic and other implants, materials and accessory cardiovascular devices associated with adverse incidents